=== PATIENT | female | born 1970 | race Caucasian/White ===

== ENCOUNTER 2023-05-29 20:09 | Outpatient (REF) | payer OTHER, SELFPAY ==
[2023-06-01 15:09] LABS: Age Gdln ACOG Testing Note (.); HPV Aptima Negative (Negative); IGP, Aptima HPV, rfx 16/18,45 Note (.)
== END 2023-05-29 20:10 | disposition home or self-care (01) ==
LOC: LAB 20:09
PROVIDERS: Visit Provider Obstetrics & Gynecology
DX: Z01.419 Encounter for gynecological examination (general) (routine) without abnormal findings (principal)
CPT/HCPCS: 87624; G0145

== ENCOUNTER 2023-06-01 08:58 | Outpatient (OUT) | payer OTHER, SELFPAY ==
--- OUTSIDE RECORDS SUMMARY | 2023-06-01 09:11 | XMS_ITS | CCD ---
Author Name Unknown Address [email or web address] [place] [address] Organization [facility] Care Team Providers Care Managed Services Consultant Name Role Phone DO Bill Kumari Primary Care Provider [phone] Jean Osman Attending Provider DO Bill Kumari Primary Care Provider MD Barry Machado Attending Provider QUCO, DR BERNABE Primary Care Unavailable QUOC, DR BERNABE Admitting Unavailable QUOC, DR BERNABE Attending Unavailable QUOC, DR BERNABE Consulting Unavailable QUOC, DR BERNABE Primary Care Unavailable BALL, DR BERNABE Admitting Unavailable BALL, DR BERNABE Attending Unavailable BALL, DR BERNABE Consulting Unavailable BROWN, PEREZ Consulting Unavailable JACQUI, DR PENA Attending Unavailable JACQUI, DR PENA Consulting Unavailable QUOC, DR BERNABE Primary Care Unavailable JACQUI, DR PENA Admitting Unavailable QUOC, DR BERNABE Primary Care Unavailable BALL, DR BERNABE Admitting Unavailable BALL, DR BERNABE Attending Unavailable QUOC, DR BERNABE Consulting Unavailable WEST, DR PEREZ Hdz Consulting Unavailable QUOC, DR BERNABE Primary Care Unavailable QUOC, DR BERNABE Admitting Unavailable QUOC, DR BERNABE Attending Unavailable BALL, DR BERNABE Consulting Unavailable Quoc, Bill Primary Care Unavailable JacquiJean Admitting Unavailable JacquiJean Attending Unavailable Ball, Bill Primary Care Unavailable Jacqui, Jean Admitting Unavailable Jacqui, Jean Attending Unavailable Quoc, Bill Primary Care Unavailable Barry Machado Admitting Unavailable Barry Machado Attending Unavailable Quoc, Bill Primary Care Unavailable Barry Machado Admitting Unavailable Barry Machado Attending Unavailable Quoc, Bill Unavailable Allergies Allergy Classification Reported Allergen(s) Allergy Type Date of Onset Reaction(s) Facility (3 sources) Penicillin Drug Allergy 06-21-19 11 PENICILLIN [facility] Repository (1 source) Penicillins Drug allergy (disorder) 05-10-20 [facility] Repository (7 sources) Penicillin G Drug Allergy Unknown [facility] Other (2 sources) Substance with penicillin structure and antibacterial mechanism of action (substance) Drug allergy 11-26-19 Unknown [facility] Other (2 sources) Bee Sting Drug allergy 11-26-19 Unknown [facility] Other (2 sources) patient allergy list reviewed by nurse or physicia Propensity to adverse reactions 10-05-19 Comment:Done [facility] [employer] Other (2 sources) Allergies Reconciled Propensity to adverse reactions Unknown [facility] Other Medications Current Medications Medication Drug Class(es) Dates Sig (Normalized) Sig (Original) {1 (ascorbic acid 7540 MG / polyethylene glycol 3350 76367 MG / potassium chloride 1200 MG / sodium ascorbate 83688 MG / sodium chloride 3200 MG Powder for Oral Solution) / 1 (polyethylene glycol 3350 [id number] MG / potassium chloride 1000 MG / sodium chloride 2000 MG / sodium sulfate 9000 MG Powder for Oral Solution) } Pack [Plenvu] (7 sources) Osmotic Laxative, Vitamin C Start: 01-27-2022 Plenvu 140 GM dose 1 pouch at 4pm, dose 2 pouch A & B at 11pm Orally twice a day for 1 days BIN:[id number] PCN: [id number] GROUP:[id number] ID:[id number] Jan, Active azithromycin 250 mg oral tablet (10 sources) Macrolide Antimicrobial Start: 06-14-2022 Azithromycin 250 MG as directed Orally daily for 5 days Jan, Active cetirizine hydrochloride 10 mg oral tablet (1 source) Histamine-1 Receptor Antagonist Start: 03-12-2023 take 1 tablet by mouth once daily ZyrTEC Allergy 10 MG 1 tablet Orally Once a day for 30 days Mar, Active doxycycline hyclate 100 mg oral capsule (7 sources) Tetracycline-class Drug Start: 07-17-2022 take 1 capsule by mouth every twelve hours Doxycycline Hyclate 100 MG 1 capsule Orally Twice a day for 14 days Jul, Active [id number] 0.3 ml EPINEPHrine 1 mg/ml auto-injector (7 sources) alpha-Adrenergic Agonist, beta-Adrenergic Agonist, Catecholamine Start: 07-31-2022 EpiPen 2-Lew 0.3 MG/0.3ML as directed Injection Once as needed for allergic reaction for 30 days Jul, Active fluticasone propionate 0.05 mg/actuat metered dose nasal spray (1 source) Corticosteroid Start: 03-12-2023 take 1 spray(s) nasal route once daily Flonase Allergy Relief 50 MCG/ACT 1 spray in each nostril Nasally Once a day for 30 days Mar, Active levoFLOXacin 500 mg oral tablet (7 sources) Quinolone Antimicrobial Start: 07-20-2022 take 1 tablet by mouth every twenty-four hours levoFLOXacin 500 MG 1 tablet Orally Once a day for 10 days Jul, Active Problems Active Problems Problem Classification Problem Date Documented Date Episodic/Chronic Abdominal pain (6 sources) Right upper quadrant pain; Translations: [Right upper quadrant pain] Onset: 01-17-2022 Episodic Acute bronchitis (2 sources) Acute bronchitis; Translations: [Acute bronchitis due to other specified organisms] Episodic Allergic reactions (6 sources) Anaphylactic shock, unspecified, initial encounter; Translations: [Idiopathic urticaria] Onset: 11-06-2014 Episodic Asthma (6 sources) Mild intermittent asthma; Translations: [Mild intermittent asthma, uncomplicated] Onset: 10-04-2017 Chronic Cancer of cervix (4 sources) Atypical squamous cells of undetermined significance on cervical Papanicolaou smear; Translations: [Atypical squamous cells of undetermined significance on cytologic smear of cervix (ASC-US)] Episodic Cardiac dysrhythmias (2 sources) Palpitations; Translations: [Palpitations] Episodic Deficiency and other anemia (2 sources) Anemia; Translations: [Anemia, unspecified] Episodic Genitourinary symptoms and ill-defined conditions (2 sources) Female stress incontinence; Translations: [Female stress incontinence] Onset: 10-04-2017 Chronic Genitourinary symptoms and ill-defined conditions (8 sources) Dysuria; Translations: [Genitourinary symptoms] Onset: 09-30-2021 Episodic Intestinal infection (2 sources) Infectious colitis, enteritis and gastroenteritis; Translations: [Infectious gastroenteritis and colitis, unspecified] Episodic Mycoses (2 sources) Candidiasis; Translations: [Candidiasis, unspecified] Episodic Nonmalignant breast conditions (2 sources) Fibrocystic disease of breast; Translations: [Diffuse cystic mastopathy of unspecified breast] Chronic Nonmalignant breast conditions (12 sources) Cyst of breast; Translations: [Solitary cyst of left breast] Resolved: 07-24-2018 05-22-2018 Episodic Other female genital disorders (2 sources) Disorder of female genital system; Translations: [Personal history of other diseases of the female genital tract] Episodic Other injuries and conditions due to external causes (1 source) Anaphylactic shock, unspecified, sequela Episodic Other lower respiratory disease (4 sources) Dyspnea; Translations: [Shortness of breath] Resolved: 02-05-2022 Episodic Other nervous system disorders (2 sources) Neuralgic amyotrophy; 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 Other non-traumatic joint disorders (2 sources) Shoulder joint pain; Translations: [Pain in right shoulder] Episodic Other screening for suspected conditions (not mental disorders or infectious disease) (6 sources) Encounter for screening for malignant neoplasm of cervix; Translations: [Abnormal findings on diagnostic imaging of breast] Onset: 12-26-2021 Episodic Other upper respiratory disease (2 sources) Seasonal allergic rhinitis; Translations: [Other seasonal allergic rhinitis] Chronic Other upper respiratory disease (1 source) Allergic rhinitis due to pollen; Translations: [Allergic rhinitis due to pollen] Chronic Other upper respiratory disease (1 source) Allergic rhinitis due to pollen Chronic Other upper respiratory infections (12 sources) Acute maxillary sinusitis, unspecified; Translations: [Acute upper respiratory infection] Episodic Residual codes; unclassified (2 sources) Preventive procedure; Translations: [Encounter for other specified prophylactic measures] Episodic Sprains and strains (4 sources) Strain of neck muscle; Translations: [Strain of muscle, fascia and tendon at neck level, subsequent encounter] Episodic Unclassified (1 source) Encounter for screening mammogram for malignant neoplasm of breast; Translations: [Encounter for screening mammogram for malignant neoplasm of breast] Onset: 07-07-2022 Unclassified (1 source) Encounter for screening for malignant neoplasm of colon; Translations: [Encounter for screening for malignant neoplasm of colon] Onset: 03-06-2022 Unclassified (1 source) Encounter for preprocedural laboratory examination; Translations: [Encounter for preprocedural laboratory examination] Onset: 03-02-2022 Unclassified (1 source) R92.8 - Other abnormal and inconclusive findings on diagnostic imaging of breast; Translations: [R92.8 - Other abnormal and inconclusive findings on diagnostic imaging of breast] Onset: 11-22-2021 Unclassified (2 sources) 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); Translations: [Post COVID-19 condition, unspecified] Viral infection (4 sources) Infectious mononucleosis; Translations: [Infectious mononucleosis, unspecified without complication] Episodic Past or Other Problems Problem Classification Problem Date Documented Date Episodic/Chronic Bacterial infection; unspecified site (2 sources) Bacterial infectious disease; Translations: [Bacterial infection, unspecified, in conditions classified elsewhere and of unspecified site] Onset: 07-07-2016 Episodic Immunizations and screening for infectious disease (1 source) Encounter for screening for human papillomavirus (HPV); Translations: [ENC SCREENING HUMAN PAPILLOMAVIRUS] Onset: 12-27-2021 Episodic Lymphadenitis (2 sources) Localized enlarged lymph nodes; Translations: [Localized enlarged lymph nodes] Onset: 07-07-2016 Episodic Malaise and fatigue (2 sources) Fatigue; Translations: [Other fatigue] Resolved: 02-05-2022 Episodic Other lower respiratory disease (2 sources) Cough; Translations: [Cough] Onset: 10-04-2017 Episodic Other nutritional; endocrine; and metabolic disorders (2 sources) Overweight; Translations: [Overweight] Onset: 07-29-2018 Episodic Other nutritional; endocrine; and metabolic disorders (2 sources) Abnormal weight gain; Translations: [Abnormal weight gain] Resolved: 02-05-2022 Episodic Other nutritional; endocrine; and metabolic disorders (2 sources) Body mass index 25-29 - overweight; Translations: [Body mass index 26.0-26.9, adult] Onset: 07-29-2018 Episodic Other skin disorders (2 sources) Alopecia; Translations: [Unspecified alopecia] Onset: 05-05-2015 Episodic Unclassified (2 sources) Exposure to acute respiratory syndrome coronavirus 2; Translations: [Contact with and (suspected) exposure to COVID-19] Unclassified (2 sources) Unspecified lump in the right breast, overlapping quadrants; Translations: [Unspecified lump in the right breast, overlapping quadrants] Urinary tract infections (2 sources) Urinary tract infectious disease; Translations: [Urinary tract infection, site not specified] Onset: 05-09-2016 Episodic Viral infection (2 sources) Disease caused by 2019-nCoV; Translations: [COVID-19] Results Test Name Value Interpretation Reference Range Facility MM screening mammo BI w/CADo n 07-07-2022 MM screening mammo BI w/CAD [facility] [place] [address] Mammography Report Signed Patient: Lucian Vallecillo MR#: [id number] [birth year] : 1970 Acct:[id number] Age/Sex: 51 / F ADM Date: 07/07/22 Loc: [place] Room: Type: [facility] Attending Dr: Jean Osman Copies to: DO Jean Hercules Ordering Provider: Jean Osman Date of Service: 07/07/22 MM/MM screening mammo BI w/CAD: SCREENING Bilateral Screening Full Field digital mammogram with 3-D imaging. Full field digital CC and MLO imaging performed. CAD utilized. COMPARISON: 05/12/2021 HISTORY:Screening FINDINGS: The breast parenchyma is extremely dense. No developing architectural distortion, developing focal breast asymmetry or developing malignant calcifications identified. Scattered benign calcifications identified. Right biopsy marking clip present. MM/MM screening mammo BI w/CAD IMPRESSION:No mammographic evidence of malignancy. Routine follow-up recommended in one year. RESULT CODE: 2 Benign Findings(s) DENSITY CODE: 4 (>75% glandular) FOLLOW UP: 1YR THE FALSE-NEGATIVE RATE OF MAMMOGRAPHY IS APPROXIMATELY 10%. IMAGING OF A PALPABLE ABNORMALITY MUST BE BASED ON CLINICAL GROUNDS. PATIENT WAS ENTERED INTO A REMINDER SYSTEM WITH A TARGET DUE DATE FOR THE NEXT MAMMOGRAM. Impression dictated by: Dion Grant M.D.07/07/2022 1:12 PM Dictation Location: [facility] Transcribed By: [facility] 07/07/221311 Dictated By: Dion Grant DO 07/07/221310 Signed By: 07/07/22 1312 Normal [facility] CBC AUTO DIFFon 04-01-2022 BASO # 0.1 103/ul Normal 0.0-0.1 [facility] Comment on above: Performed By: #### C BC #### [facility] [address] [address] Dr. Naren Leon Basophils/100 WBC (Bld) 0.7 % Normal 0.2-2.0 [facility] Comment on above: Performed By: #### C BC #### [facility] [address] [address] Dr. Naren Leon EO # 0.3 103/ul Normal 0.0-0.7 [facility] Comment on above: Performed By: #### C BC #### [facility] [address] [address] Dr. Naren Leon Eosinophils/100 WBC (Bld) 3.7 % Normal 0.9-7.0 [facility] Comment on above: Performed By: #### C BC #### [facility] [address] [place] [address] Dr. Naren Leon Erythrocyte distribution width (RBC) [Ratio] 13.6 % Normal 11.0-15.0 [facility] Comment on above: Performed By: #### C BC #### [facility] [address] [address] Dr. Naren Leon Hematocrit (Bld) [Volume fraction] 43.1 % Normal 36.0-48.0 [facility] Comment on above: Performed By: #### C BC #### [facility] [address] [place] [address] Dr. Naren Leon Hemoglobin (Bld) [Mass/Vol] 14.5 g/dL Normal 12.0-16.0 [facility] Comment on above: Performed By: #### C BC #### [facility] [address] [place] [address] Dr. Naren Leon IG # 0.03 10e3/ul Normal 0.00-0.03 [facility] Comment on above: Performed By: #### C BC #### [facility] [address] [place] [address] Dr. Naren Leon IG % 0.3 % Normal 0.0-0.5 [facility] Comment on above: Performed By: #### C BC #### [facility] [address] [address] Dr. Naren Leon LYMPH # 2.8 103/ul Normal 1.2-3.8 [facility] Comment on above: Performed By: #### C BC #### [facility] [address] [place] [address] Dr. Naren Leon Lymphocytes/100 WBC (Bld) 30.3 % Normal 20.5-60.0 [facility] Comment on above: Performed By: #### C BC #### [facility] [address] [place] [address] Dr. Naren Leon MANUAL DIFF REQ NO Normal [facility] Comment on above: Performed By: #### C BC #### [facility] [address] [place] [address] Dr. Naren Leon MCH (RBC) [Entitic mass] 28.5 pg Normal 26.7-34.0 [facility] Comment on above: Performed By: #### C BC #### [facility] [address] [place] [address] Dr. Naren Leon MCHC (RBC) [Mass/Vol] 33.6 g/dL Normal 29.9-35.2 [facility] Comment on above: Performed By: #### C BC #### [facility] [address] [place] [address] Dr. Naren Leon MCV (RBC) [Entitic vol] 84.8 fL Normal 81.0-99.0 [facility] Comment on above: Performed By: #### C BC #### [facility] [address] [address] Dr. Naren Leon MONO # 0.7 103/ul Normal 0.3-0.8 [facility] Comment on above: Performed By: #### C BC #### [facility] [address] [place] [address] Dr. Naren Leon Monocytes/100 WBC (Bld) 7.2 % Normal 1.7-12.0 [facility] Comment on above: Performed By: #### C BC #### [facility] [address] [address] Dr. Naren Leon NEUT # 5.3 103/ul Normal 1.4-6.5 [facility] Comment on above: Performed By: #### C BC #### [facility] [address] [place] [address] Dr. Naren Leon Neutrophils/100 WBC (Bld) 57.8 % Normal 43.0-75.0 [facility] Comment on above: Performed By: #### C BC #### [facility] [address] [address] Dr. Naren Leon Platelet mean volume (Bld) [Entitic vol] 10.2 fL Normal 9.5-13.5 [facility] Comment on above: Performed By: #### C BC #### [facility] [address] [address] Dr. Naren Leon PLT 295 103/ul Normal 150-450 [facility] Comment on above: Performed By: #### C BC #### [facility] [address] [address] Dr. Naren Leon RBC 5.08 106/ul Normal 4.20-5.40 [facility] Comment on above: Performed By: #### C BC #### [facility] [address] [place] [address] Dr. Naren Leon WBC 9.1 103/ul Normal 4.0-11.0 [facility] Comment on above: Performed By: #### C BC #### [facility] [address] [address] Dr. Naren Leon LIPID PROFILEon 04-01-2022 CHOL-HDL RATIO NORM SEE BELOW Normal [facility] Comment on above: Result Comment: 3.3 - 4.4 LOW RISK 4.4 - 7.1 AVERAGE RISK 7.1 - 11.0 MODERATE RISK >11.0 HIGH RISK Performed By: #### T SH, LIPID, CMP #### [facility] [address] [address] Dr. Naren Leon Cholesterol [Mass/Vol] 229 mg/dL Critically high <=200 [facility] Comment on above: Performed By: #### T SH, LIPID, CMP #### [facility] [address] [address] [address] Naren Leon Cholesterol in HDL [Mass/Vol] 65 mg/dL Critically high 40-60 [facility] Comment on above: Performed By: #### T SH, LIPID, CMP #### [facility] [address] [address] [address] Naren Leon Cholesterol in LDL [Mass/Vol] 147.8 mg/dL Normal [facility] Comment on above: Performed By: #### T SH, LIPID, CMP #### [facility] [address] [address] [address] Naren Leon Cholesterol.total/Chol esterol in HDL [Mass ratio] 3.5 {ratio} Normal [facility] Comment on above: Performed By: #### T SH, LIPID, CMP #### [facility] [address] [address] [address] Naren Leon HDL NORMAL > or = 60 mg/dl - LOW CARDIOVASCULAR RISK <40 mg/dl - HIGH CARDIOVASCULAR RISK Normal [facility] Comment on above: Performed By: #### T SH, LIPID, CMP #### [facility] [address] [address] Dr. Naren Leon LDL CALC NORMAL SEE BELOW Normal [facility] Comment on above: Result Comment: <100 mg/dl OPTIMAL 100 - 129 mg/dl NEAR OR ABOVE OPTIMAL 130 - 159 mg/dl BORDERLINE HIGH 160 - 189 mg/dl HIGH >190 mg/dl VERY HIGH Performed By: #### T SH, LIPID, CMP #### [facility] [address] [place] [address] Dr. Naren Leon Triglyceride [Mass/Vol] 81 mg/dL Normal <=150 [facility] Comment on above: Performed By: #### T SH, LIPID, CMP #### [facility] [address] [place] [address] Dr. Naren Leon VLDL CALC 16.2 mg/dL Normal [facility] Comment on above: Performed By: #### T SH, LIPID, CMP #### [facility] [address] [place], [place] [id number] Dr. Naren Leon PROF 14(COMP METB)on 022 Albumin [Mass/Vol] 3.9 g/dL Normal 3.4-5.0 [facility] Comment on above: Performed By: #### T SH, LIPID, CMP #### [facility] [address] [place] [address] Dr. Naren Leon Albumin/Globulin [Mass ratio] 1.1 {ratio} Normal [facility] Comment on above: Performed By: #### T SH, LIPID, CMP #### [facility] [address] [address] [address] Naren Leon ALP [Catalytic activity/Vol] 53 U/L Normal 46-116 [facility] Comment on above: Performed By: #### T SH, LIPID, CMP #### [facility] [address] [place] [address] Dr. Naren Leon ALT [Catalytic activity/Vol] 24 U/L Normal 14-59 [facility] Comment on above: Performed By: #### T SH, LIPID, CMP #### [facility] [address] [address] [address] Naren Leon Anion gap [Moles/Vol] 11.1 mmol/L Normal [facility] Comment on above: Performed By: #### T SH, LIPID, CMP #### [facility] [address] [place] [address] Dr. Naren Leon AST [Catalytic activity/Vol] 16 U/L Normal 15-37 [facility] Comment on above: Performed By: #### T SH, LIPID, CMP #### [facility] [address] [address] [address] Naren Leon Bilirubin [Mass/Vol] 0.5 mg/dL Normal 0.2-1.0 [facility] Comment on above: Performed By: #### T SH, LIPID, CMP #### [facility] [address] [place] [address] Dr. Naren Leon Calcium [Mass/Vol] 8.7 mg/dL Normal 8.5-10.1 [facility] Comment on above: Performed By: #### T SH, LIPID, CMP #### [facility] [address] [address] [address] Naren Leon Chloride [Moles/Vol] 103 mmol/L Normal 98-107 [facility] Comment on above: Performed By: #### T SH, LIPID, CMP #### [facility] [address] [address] [address] Naren Leon CO2 [Moles/Vol] 27.8 mmol/L Normal 21.0-32.0 [facility] Comment on above: Performed By: #### T SH, LIPID, CMP #### [facility] [address] [address] [address] Naren Leon Creatinine [Mass/Vol] 0.87 mg/dL Normal 0.55-1.02 [facility] Comment on above: Performed By: #### T SH, LIPID, CMP #### [facility] [address] [address] [address] Naren Leon EGFR-AF GRENADIAN >60 Normal >=60 [facility] Comment on above: Performed By: #### T SH, LIPID, CMP #### [facility] [address] [address] [address] Naren Leon EGFR-NON AF GRENADIAN >60 Normal >=60 [facility] Comment on above: Performed By: #### T SH, LIPID, CMP #### [facility] [address] [address] [address] Naren Leon Globulin (S) [Mass/Vol] 3.6 g/dL Normal [facility] Comment on above: Performed By: #### T SH, LIPID, CMP #### [facility] [address] [address] [address] Naren Leon Glucose [Mass/Vol] 90 mg/dL Normal 74-106 [facility] Comment on above: Performed By: #### T SH, LIPID, CMP #### [facility] [address] [address] [address] Naren Leon Potassium [Moles/Vol] 3.9 mmol/L Normal 3.5-5.1 [facility] Comment on above: Performed By: #### T SH, LIPID, CMP #### [facility] [address] [address] [address] Naren Leon Protein [Mass/Vol] 7.5 g/dL Normal 6.4-8.2 [facility] Comment on above: Performed By: #### T SH, LIPID, CMP #### [facility] [address] [address] [address] Naren Leon Sodium [Moles/Vol] 138 mmol/L Normal 136-145 [facility] Comment on above: Performed By: #### T SH, LIPID, CMP #### [facility] Laboratory [address] [address] [address] Naren Leon Urea nitrogen [Mass/Vol] 15.0 mg/dL Normal 7.0-18.0 [facility] Comment on above: Performed By: #### T SH, LIPID, CMP #### [facility] [address] [place] [address] Dr. Naren Leon Urea nitrogen/Creatinine [Mass ratio] 17.2 mg/mg Normal [facility] Comment on above: Performed By: #### T SH, LIPID, CMP #### [facility] [address] [place] [address] Dr. Naren Leon TSHon 04-01-2022 TSH 2.283 uIU/mL Normal 0.358-3.740 [facility] Comment on above: Performed By: #### T SH, LIPID, CMP #### [facility] [address] [address] Dr. Naren Leon HCG ( test) IA.rapi d Ql (U)Ordered By: Barry Machado on 03-06-2022 HCG ( test) Ql (U) Negative [facility] HCG,Urineon 03-06-2022 Beta HCG ( test) Ql (U) Negative Normal [facility] Comment on above: Result Comment: PERF ORMED BY: [place] [address] [place] [address] PATHOLOGIST SOCK FOLDER JIANLAN SUN M.D. Performed By: #### U HCG #### [facility] [address] COVID-19 Antigenon 2 COVID-19 Antigen Healthcare Worker?: N Reference Range: Negative Negative results, from patients with symptom onset beyond five days, should be treated as presumptive and confirmation with a molecular assay, if necessary, for patient management, may be performed. Negative results do not rule out COVID-19 and should not be used as the sole basis for treatment or patient management decisions, including infection control decisions. Negative results should be considered in the context of a patient's recent exposures, history and the presence of clinical signs and symptoms consistent with COVID-19. The Allen SARS Antigen BRYAN does not differentiate between SARS-CoV and SARS-CoV-2. This test was developed and its performance characteristic determined by [employer] and validated at [facility]. This test has not been FDA cleared or approved. This test has been authorized by FDA under an Emergency Use Authorization (EUA). This test has been validated in accordance with the FDA's Guidance Document (Policy for Diagnostics Testing in Laboratories Certified to Perform High Complexity Testing under CLIA prior to Emergency Use Authorization for Coronavirus Disease-2019 during the Public Health Emergency) issued on September 11, 2019. This test is only authorized for the duration of time the declaration that circumstances exist justifying the authorization of the emergency use of in vitro diagnostic tests for detection of SARS-CoV-2 virus and/or diagnosis of COVID-19 infection under section 564(b)(1) of the Act, 21 U.S.C. 360bbb-3(b)(1), unless the authorization is terminated or revoked sooner. SARS-CoV+SARS-CoV-2 (COVID-19) Ag [Presence] in Respiratory specimen by Rapid immunoassay Negative for SARS Antigen by BRYAN PERFORMED BY: [place] [address] PATHOLOGIST SOCK FOLDER JERED MORRISON M.D. [facility] Comment on above: Performed By: #### C OVID-19 ALLEN, SOFIANEG #### [facility] [address] [place] [address] COVID-19 SOFIAOrdered By: Susana Machado on 03-02-2022 SARS-CoV+SARS-CoV-2 (COVID-19) Ag IA.rapid Ql (Resp) Negative Negative [facility] Comment on above: This is a duplicate Allen SARS Antigen (BRYAN) result to be used for statistical tracking purpose only. No Panel InformationOrdered By: Barry Machado on 03-02-2022 SARS Antigen (LFIA) [facility] Allen Ag Negativeon 03-02-20 Allen Ag Negative Negative Normal Negative [facility] Comment on above: Result Comment: This is a duplicate Allen SARS Antigen (BRYAN) result to be used for statistical tracking purpose only. PERFORMED BY: [place] [address] PATHOLOGIST SOCK FOLDER JERED MORRISON M.D. Performed By: #### C OVID-19 ALLEN, SOFIANEG #### [address] Abstracton 02-11-2022 Abstract [id number] AvelLucian 1970 F Date Provider Department Center 02/11/2022 SHAN [facility] Family History Problem Relation Age of Onset Other Mother Other Father Diabetes Paternal Grandmother Family Status - Relation Status Age at Mother Father Paternal Grandmother Normal [facility] HEPATOBILIARY SCAN W EFon 01-17-2022 NM HEPATOBILIARY SCAN W EF EXAMINATION: NM HEPATOBILIARY SCAN W EF HISTORY: Right upper quadrant pain COMPARISON: No relevant comparison available. TECHNIQUE: Radionuclide hepatobiliary imaging was performed after intravenous injection of 5.1 mCi Tc-99m mebrofenin with sequential acquisitions every 1 minute for one hour. Hepatobiliary imaging with gallbladder ejection fraction analysis was then performed with sequential imaging every 1 minute for 60 minutes simultaneously following 8 ounces of ensure by mouth. FINDINGS: LIVER: Normal, prompt and uniform radiotracer uptake and clearing. BILIARY DUCTS: Normal radioisotopic biliary excretion. GALLBLADDER: Normal with no evidence of cystic duct obstruction. INTESTINE: Normal with no evidence of common biliary ductal obstruction. EJECTION FRACTION: 57 % within 60 minutes. (Normal EF > 38%). OTHER: Negative. IMPRESSION: Normal hepatobiliary scan and ejection fraction Electronically authenticated by: PEREZ HILL Date: 2022-01-17 18:39 Normal [facility] PAP ACOG PANEL 2: 30 to 65on 12-30-2021 . . Normal [facility] Comment on above: Result Comment: Perf ormed at: WB Performed By: #### [id number] #### [facility] [address] [address] Dr. Naren Leon Age Gdln ACOG Testing 30-65 Normal [facility] Comment on above: Performed By: #### [id number] #### [facility] [address] [address] [address] Naren Leon DIAGNOSIS: Comment Abnormal [facility] Comment on above: Result Comment: EPIT HELIAL CELL ABNORMALITY. ATYPICAL SQUAMOUS CELLS OF UNDETERMINED SIGNIFICANCE (ASC-US). Performed at: WB Performed By: #### 4 [id number] #### [facility] [address] [address] Dr. Naren Leon Electronically signed by: Comment Normal [facility] Comment on above: Result Comment: Kaya Mtz MD, Pathologist Performed at: WB Performed By: #### 4 [id number] #### [facility] [address] [place] [address] Dr. Naren Leon HPV Aptima Negative Normal Negative [facility] Comment on above: Result Comment: This nucleic acid amplification test detects fourteen high-risk HPV types (16,18,31,33,35,39,45,51,52,56,58,59,66,68) without differentiation. Performed at: =G Performed By: #### [id number] #### [facility] [address] [address] Dr. Naren Leon Methodology: Comment Normal [facility] Comment on above: Result Comment: This liquid based ThinPrep(R) pap test was screened with the use of an image guided system. Performed at: WB Performed By: #### 4 [id number] #### [facility] [address] [address] Dr. Naren Leon Note: Comment Normal [facility] Comment on above: Result Comment: The Pap smear is a screening test designed to aid in the detection of premalignant and malignant conditions of the uterine cervix. It is not a diagnostic procedure and should not be used as the sole means of detecting cervical cancer. Both false-positive and false-negative reports do occur. . Performed at: WB Performed By: #### 4 [id number] #### [facility] [address] [address] [address] Naren Leon Pathologist Provided ICD10 Comment Normal [facility] Comment on above: Result Comment: R87. [id number] Performed at: WB Performed By: #### 4 [id number] #### [facility] [id number] Naren Leon Performed by: Comment Normal [facility] Comment on above: Result Comment: [place] Sellers, Fixed Assets Accountant (ASCP) Performed at: WB Performed By: #### 4 [id number] #### [facility] [address] [address] [address] Naren Leon Recommendation: Comment Abnormal [facility] Comment on above: Result Comment: Sugg est follow up as clinically appropriate. Performed at: WB Performed By: #### 4 [id number] #### [facility] [id number] Naren Leon Specimen adequacy: Comment Normal [facility] Comment on above: Result Comment: Sati sfactory for evaluation. Endocervical and/or squamous metaplastic cells (endocervical component) are present. Performed at: WB Performed By: #### 4 [id number] #### [facility] [address] [place], [place] [id number] Dr. Naren Leon US SINGLE QUAD RT UPPERon US SINGLE QUAD RT UPPER EXAM: Ultrasound of the right upper quadrant HISTORY: Right upper quadrant pain COMPARISON: None. TECHNIQUE: Grayscale and color imaging was performed FINDINGS: Pancreas appears normal. The liver is normal in size. No masses or biliary dilatation is noted. Color-flow is noted in the portal and hepatic veins. The gallbladder appears normal with no stones or sludge identified. No gallbladder wall thickening is noted. Common bile duct measures 5 mm. Right kidney measures 11.5 x 4.4 x 5.1 cm. No solid renal cortical masses or hydronephrosis is noted. There is a 1.5 cm cyst involving the midpole of the right kidney. No fluid is noted in the right upper quadrant. Impression: 1. 1.5 cm cyst involving the midpole of the right kidney. 2. The right upper quadrant is otherwise unremarkable. Electronically authenticated by: PEREZ ARAUJO Date: 2021-12-29 08:29 Normal [facility] US breast RT limitedon 11-22 US breast RT limited [facility] Main [place] [address] [place] [address] Ultrasound Report Signed Patient: Lucian Vallecillo MR#: [id number] [birth year] : 1970 Acct:[id number] Age/Sex: 51 / F ADM Date: 11/22/21 Loc: [facility] Room: Type: [facility] Attending Dr: Jean Osman Ordering Provider: Jean Osman Date of Service: 11/22/21 US/US breast RT limited: ABN [facility] Copies to: Jean Osman CLINICAL DATA: History of bloody nipple discharge from the right breast for one week. None presently. Follow-up nodule right breast. LIMITED right BREAST ULTRASOUND COMPARISON:Mammogram s dating back to 2018. Right breast ultrasound 05/12/2021, a 08/29/2019 and 06/12/2019 FINDINGS: At the 9:00 position of the right breast approximately 6 cm from the nipple, the previous identified well-circumscribed hypoechoic mass is once again demonstrated measuring 8 x 6 x 4 mm, grossly unchanged in size and configuration dating back to 06/12/2019. No additional suspicious masses. US/US breast RT limited IMPRESSION: STABLE HYPOECHOIC MASS 9:00 POSITION OF THE RIGHT BREAST DATING BACK TO 06/12/2019. GIVEN THE OVER 2 YEARS OF STABILITY, A BENIGN PROCESS IS FAVORED. RETURN TO SCREENING MAMMOGRAPHY IS RECOMMENDED. IF THE BLOODY NIPPLE DISCHARGE RETURNS, BREAST MRI EVALUATION SHOULD BE ENTERTAINED. RESULT CODE: 2 Benign Findings(s) Management of a palpable abnormality must be based on clinical grounds. Patient was entered into a reminder system with a target due date for the next mammogram. Impression dictated by: Jamil Tong Jr., D.O.11/22/2021 11:24 AM Dictation Location: [facility] Tech: Thania Espinosa Transcribed By: PWS 11/22/21 112 Dictated By: Jamil Tong Jr, DO 11/22/211119 Signed By: 11/22/21 112 Normal [facility] CULTURE URINEon 09-30-2021 CULTURE URINE Culture Observations: LIGHT GROWTH OF MIXED GENITAL JEFF. NO POTENTIAL PATHOGENS SEEN. Normal [facility] Comment on above: Performed By: #### U RCX #### [facility] [address] [address] Dr. Naren Leon UA RANDOM W/MICROSCOPICon BACTERIA TRACE Abnormal NONE SEEN [facility] Comment on above: Performed By: #### U AMIC #### [facility] [address] [place] [address] Dr. Naren Leon Bilirubin Ql (U) Negative Normal NEGATIVE [facility] Comment on above: Performed By: #### U AMIC #### [facility] [address] [address] Dr. Naren Leon CAST NONE SEEN Normal NONE SEEN [facility] Comment on above: Performed By: #### U AMIC #### [facility] [address] [place] [address] Dr. Naren Leon Clarity (U) CLEAR Normal CLEAR [facility] Comment on above: Performed By: #### U AMIC #### [facility] [address] [address] Dr. Naren Leon Color (U) LT. YELLOW Normal YELLOW [facility] Comment on above: Performed By: #### U AMIC #### [facility] [address] [address] Dr. Naren Leon Crystals LM Nom (Urine sed) NONE SEEN Normal NONE SEEN [facility] Comment on above: Performed By: #### U AMIC #### [facility] [address] [place] [address] Dr. Naren Leon Epithelial cells LM Ql (Urine sed) MODERATE Abnormal NONE SEEN /RARE [facility] Comment on above: Performed By: #### U AMIC #### [facility] [address] [place] [address] Dr. Naren Leon Glucose Ql (U) Negative Normal NEGATIVE [facility] Comment on above: Performed By: #### U AMIC #### [facility] [address] [address] [address] Naren Leon Hemoglobin Ql (U) Negative Normal NEGATIVE [facility] Comment on above: Performed By: #### U AMIC #### [facility] [address] [address] [address] Naren Leon Ketones Ql (U) Negative Normal NEGATIVE [facility] Comment on above: Performed By: #### U AMIC #### [facility] [address] [address] [address] Naren Leon LEUKOCYTES TRACE Abnormal NEGATIVE [facility] Comment on above: Performed By: #### U AMIC #### [facility] [address] [address] [address] Naren Leon MUCOUS TRACE Abnormal NONE SEEN [facility] Comment on above: Performed By: #### U AMIC #### [facility] [address] [address] [address] Naren Leon Nitrite Ql (U) Negative Normal NEGATIVE [facility] Comment on above: Performed By: #### U AMIC #### [facility] [address] [address] [address] Naren Leon pH (U) 6.0 [pH] Normal 5-9 [facility] Comment on above: Performed By: #### U AMIC #### [facility] [address] [address] [address] Naren Leon RBC 0-2 Normal 0-2 [facility] Comment on above: Performed By: #### U AMIC #### [facility] [address] [address] [address] Naren Leon SPEC GRAVITY <=1.005 Abnormal 1.005-<=1.025 [facility] Comment on above: Performed By: #### U AMIC #### [facility] [address] [address] [address] Naren Leon UA PROTEIN Negative Normal NEGATIVE/ TRACE [facility] Comment on above: Performed By: #### U AMIC #### [facility] [address] [address] [address] Naren Leon Urobilinogen Qn (U) 0.2 {Daiana'U}/dL Normal 0.2 - 1. 0 [facility] Comment on above: Performed By: #### U AMIC #### [facility] [address] [address] [address] Naren Leon WBC 0-2 Abnormal NONE SEEN [facility] Comment on above: Performed By: #### U AMIC #### [facility] [address] [address] [address] Naren Leon Coding Summary.on 12-17-2019 Coding Summary. CODING DATE: 12/17/2019 [facility] STATUS: Home (Routine DC) PAYOR: [facility] [place] ADMIT DX: REASON FOR VISIT DX: Z11.59 Encounter for screening for other viral diseases FINAL DX: PRINCIPAL: Z01.84 Encounter for antibody response examination SECONDARY: PYMT PROC APC STAT DESCRIPTION DOCTOR NAME DATE NOTE: The code number assigned matches the documented diagnosis and / or procedure in the patient's chart. However, the narrative phrase printed from the coding software may appear abbreviated, or result in slightly different terminology. Coded By: Shan Gilmore Date Saved: 12/17/2019 06:50 am Normal [facility] Physician Orderon 12-04-2019 Physician Order [id number] 6#1.00CD:127 Normal [facility] Vital Signs Date Time Vital Sign Value Performing Clinician Faci lity 03-06-2022 09:28-0400 Diastolic blood pressure 73 mm[Hg] DO [employer] Work Phone: [facility] 03-06-2022 09:28-0400 Heart rate 62 /min DO [employer] Work Phone: [facility] 03-06-2022 09:28-0400 Respiratory rate 16 /min DO [employer] Work Phone: [facility] 03-06-2022 09:28-0400 SaO2% (BldA) [Mass fraction] 100 % DO Bill Ball Work Phone: [facility] 03-06-2022 09:28-0400 Systolic blood pressure 115 mm[Hg] DO Bill Ball Work Phone: [facility] 03-06-2022 08:03-0400 Body height 160.02 cm DO Bill Ball Work Phone: [facility] 03-06-2022 08:03-0400 Body temperature 98.7 [degF] DO Bill Ball Work Phone: [facility] 03-06-2022 08:03-040 Body weight 65.77 kg DO Bill Ball Work Phone: [facility] Encounters Encounter Date Encounter Type Care Provider Facility Start: 03-12-2023 End: 03-12-2023 ambulatory Bill Ball Other [employer] Other Start: 03-12-2023 Office outpatient vi sit 15 minutes Bill Ball [facility] Start: 01-24-2023 End: 01-24-2023 ambulatory Bill Ball Other [employer] Other Start: 01-24-2023 Office outpatient vi sit 15 minutes Bill Ball [facility] Start: 07-31-2022 End: 07-31-2022 ambulatory Bill Ball Other [employer] Other Start: 07-31-2022 Telephone encounter Bill Ball [facility] Start: 07-20-2022 End: 07-20-2022 ambulatory Bill Ball Other [employer] Other Start: 07-20-2022 Telephone encounter Bill Ball [facility] Start: 07-17-2022 End: 07-17-2022 ambulatory Bill Ball Other [employer] Other Start: 07-17-2022 Office outpatient vi sit 15 minutes Bill Ball [facility] Start: 07-07-2022 End: 07-07-2022 ambulatory Bill Kumari Facility:[facility] Start: 06-14-2022 ([facility]) [facility] Scheduled Bill Kumari [facility] Start: 06-14-2022 End: 06-14-2022 ambulatory Bill Kumari Other [employer] Other Start: 06-14-2022 Telephone encounter Bill Kumari [facility] Start: 05-15-2022 Adult health examination Keaton Kumari Other [employer] Other Start: 05-15-2022 Gynecological examin ation normal Bill Kumari Other [employer] Other Start: 04-05-2022 Encounter for genera l adult medical examination without abnormal findings DR BILL KUMARI [facility] Start: 04-01-2022 End: 04-02-[address] BILL KUMARI Facility:[facility] Start: 04-01-2022 End: 04-02-2022 Encounter for general adult medical examination without abnormal findings DR BLIL KUMARI Facility:[facility] Start: 03-06-2022 End: 03-06-2022 ambulatory Bill Kumari Facility:[facility] Start: 03-06-2022 End: 03-06-2022 Admission to same day surgery center DO Bill Kumari Work Phone: [facility] Start: 03-02-2022 End: 03-02-2022 ambulatory Bill Kumari Facility:[facility] Start: 03-02-2022 End: 03-02-2022 Patient encounter procedure DO Bill Kumari Work Phone: [facility] Start: 01-17-2022 End: 01-18-[address] BILL KUMARI Facility:[facility] Start: 12-29-2021 End: 12-30-[address] BILL KUMARI Facility:[facility] Start: 12-26-2021 End: 12-26-[address] JEAN OSMAN Facility:[facility] Start: 11-22-2021 End: 11-22-2021 ambulatory Bill Kumari Facility:[facility] Start: 11-22-2021 End: 11-22-2021 Patient encounter procedure DO Bill Kumari Work Phone: [facility] Start: 09-30-2021 End: 10-01-[address] BILL KUMARI Facility: Start: 11-14-2020 History of abnormal cervical Papanicolaou smear Bill Kumari Other [employer] Other Procedures Date Procedure Procedure Detail Performing Clinician Start: 03-06-2022 Screening colonoscopy D O Bill Kumari Work Phone: Start: 11-22-2021 Ultrasonography of r ight breast DO Bill Kumari Work Phone: Start: 07-29-2018 General examination of patient Bill Kumari Other Start: 12-07-2010 End: 05-23-2016 Insertion of intrauterine contraceptive device Bill Kumari Other Mammography Bill Kumari Other SARS Antigen (LFIA) DO Keaton Kumari Work Phone: Screening for malign ant neoplasm of breast Bill Kumari Other Plan of Treatment Date Care Activity Detail Author Start: 03-06-2022 [facility] Work Phone: Immunizations Immunization Date Immunization Notes Care Provider Fa jaida 09-30-2020 COVID-19 Vaccine Pfi zer - Documentation Purposes Only Bill Kumari Other [employer] Other 09-09-2020 COVID-19 Vaccine Pfi zer - Documentation Purposes Only Bill Kumari Other [employer] Other Payers Date Payer Category Payer Self-pay [id number] 1970 Unknown [id number] 2.16.84 [id number] 1970 Unknown [id number] 2.16.84 [id number] 1970 Unknown [id number] 2.16.84 [id number] 1970 Unknown [id number] 2.16.84 [id number] 1970 Unknown [id number] 2.16.84 [id number] 1958 Unknown [id number] Unknown [id number] 2.16.8 [id number] Unknown [id number] 2.16.8 [id number] Unknown [id number] 2.16.8 [id number] Unknown [id number] 2.16.8 [id number] Social History Date Type Detail Facility Tobacco smoking status NHIS Unknown if ever smoked [facility] Work Phone: Start: 1970 Sex Assigned At Female F [facility] Start: 03-06-2022 Tobacco smoking status NHIS Never smoked tobacco (finding) [facility] Sex Assigned At Sex Assigned At [facility] [employer] Other Goals Date Patient Goal Desired Activity /State Clinical Notes 03-06-2022 to 03-12-2023 Note Date & Type Note Facility 03-12-2023 Evaluation note Encounter Date Diagnosis Assessment Notes Mar, Acute recurrent maxillary sinusitis (ICD-10 - J01.01) Instructed to use Robitussin or Mucinex for cough, saline or Flonase NS for congestion, Tylenol for pain and fever. Mar, Seasonal allergic rhinitis due to pollen (ICD-10 - J30.1) Continue treatment until acosta [employer] Other 08-16-2023 Evaluation note* Encounter Date Diagnosis Assessment Notes Treatment Notes Treatment Clinical Notes Jan, Acute non-recurrent maxillary sinusitis (ICD-10 - J01.00) Instructed to use Robitussin or Mucinex for cough, saline or Flonase NS for congestion, Tylenol for pain and fever. [employer] Other 02-20-2023 Evaluation note* Encounter Date Diagnosis Assessment Notes Treatment Notes Treatment Clinical Notes Jul, Acute non-recurrent maxillary sinusitis (ICD-10 - J01.00) Jul, Anaphylaxis, sequela (ICD-10 - T78.2XXS) [employer] Other 02-09-2023 Evaluation note* Encounter Date Diagnosis Assessment Notes Treatment Notes Treatment Clinical Notes Jul, Acute non-recurrent maxillary sinusitis (ICD-10 - J01.00) [employer] Other 02-06-2023 Evaluation note* Encounter Date Diagnosis Assessment Notes Treatment Notes Treatment Clinical Notes Jul, Acute non-recurrent maxillary sinusitis (ICD-10 - J01.00) Instructed to use Robitussin or Mucinex for cough, saline or Flonase NS for congestion, Tylenol for pain and fever. [employer] Other 01-04-2023 Evaluation note* Encounter Date Diagnosis Assessment Notes Treatment Notes Treatment Clinical Notes Jun, Acute non-recurrent maxillary sinusitis (ICD-10 - J01.00) Instructed to use Robitussin or Mucinex for cough, saline or Flonase NS for congestion, Tylenol for pain and fever. [employer] Other 09-26-2022 [facility]Evaluation noteNo assessment information availableOhiohealth Dublin [facility] Work Phone: Evaluation noteNo InformationNort [employer] Other History and physical note Author Barry Machado [facility] March 06, 2022 8:44am Note Date/Time March 06, 2022 8:44am [facility] [address] [place] [address] Gastroenterology H&P Signed Patient: Lucian Vallecillo MR#: [id number] : 1970 Acct:[id number] Age/Sex: 51 / F Adm Date: 2 Loc: Room: Type: [facility] Attending Dr: Barry Machado MD Copies to: DO Barry Hercules MD~ Date of Service: 03/06/2022 HISTORY & PHYSICAL: Patient's history with special attention to the cardiovascular, pulmonary systems and the current problem was reviewed with the patient immediately prior to the procedure. Present medications and doses reviewed in the EMR. Allergies and pertinent laboratory tests were also reviewedat this time in the EMR. The physical examination, as below, was then performed. Indication, assessment and HPI: 51 yo F presents for screening colonoscopy Family history of GI malignancy? No PHYSICAL EXAMINATION Mouth and Pharynx : Moist mucus membranes, normal dentition Cardiac: Regular rate, regular rhythm Pulmonary: Clear to auscultation bilaterally, no wheezing Neurological: Alert and oriented x3, no focal deficits noted Abdomen: Abdomen soft, non-tender REVIEW OF SYSTEMS Constitutional: Denies malaise, fevers Cardiovascular: Denies chest pain, palpitations Respiratory: Denies shortness of breath, wheezing Gastrointestinal: Per HPI Genitourinary: Denies dysuria, polyuria Musculoskeletal: Denies joint swelling, joint stiffness Neurological: Denies numbness, tingling Integumentary: Denies rashes, skin lesions Endocrine: Denies fatigue, weight loss Written informed consent obtained from the patient. Risks (including but not limited to perforation, infection, bloating, bleeding, need for emergent surgeryand loss of life), benefits and alternatives explained and questions answered. The patient verbalized understanding. Based on history patient is an appropriate candidate for the procedure. Barry Machado MD Documented By: Barry Machado MD 03/06/22843 Signed By: <Electronically signed by Barry Machado MD> 03/06/22843 [facility] Work Phone: History general Narrative - Reported* Type Description Date Surgical History tonsillectomy and adenoidectomy Surgical History ablasion [employer] Other Summary Purpose Family History Relationship Condition Age at Onset Recorded Date/T honorio father Malignant melanoma Unknown Not Specified Malignant melanoma Unknown Advance Directives Advance Directive Response Recorded Date/ Time Advance Directives No June 26, 2017 3:48pm Chief Complaint and Reason for Visit Chief Complaint Abnormal Mammogram Chief Complaint Screening Screening Additional Source Comments INFORMATION SOURCE (unrecogn ized section and content) DATE CREATED AUTHOR 12/29/2019 Paul Strauss [employer] [facility] DATE CREATED AUTHOR AUTHOR'S ORGANIZ ATION 02/18/2022 [facility] DATE CREATED AUTHOR AUTHOR'S ORGANIZ ATION 04/06/2022 [facility] DATE CREATED AUTHOR AUTHOR'S ORGANIZ ATION 07/13/2022 [facility] Care Teams (unrecognized sec tion and content) Team Status: Inactive Member Role Status Dates Bill Kumari , Primary Care Provider Active Jean Osman Attending Provider Active Team Status: Active Member Role Status Dates Bill Kumari , DO Primary Care Provider Active Team Status: Inactive Member Role Status Dates Bill Kumari , DO Primary Care Provider Active Barry Machado MD Attending Provider Active Goals (unrecognized section and content) Goals may be documented in a n alternate sectionNo InformationNo InformationNo InformationNo InformationNo InformationNo InformationNo Information REASON FOR VISIT (unrecogniz ed section and content) Possible ATBSick [phone] 6COLDS, SORE THROATDifferent ATBATBSinus infectionSinus Infection- [phone] FOR RECORDS PERTAINING TO PATIENTS WHO ARE OR HAVE BEEN ENROLLED IN A CHEMICAL DEPENDENCY/SUBSTANCEABUSE PROGRAM, SOME INFORMATION MAY BE OMITTED. This clinical summary was aggregated from multiple sources. Caution should be exercised in using it in the provision of clinical care. This summary normalizes information from multiple sources, and as a consequence, information in this document may materially change the coding, format and clinical context of patient data. In addition, data may be omitted in some cases. CLINICAL DECISIONS SHOULD BE BASED ON THE PRIMARY CLINICAL RECORDS. [facility]. provides no warranty or guarantee of the accuracy or completeness of information in this document.
[2023-06-01 10:32] LABS: Estimated Average Glucose 97 mg/dL
[2023-06-01 11:11] LABS: Free T3 2.76 pg/mL (2.18-3.98); Glucose 90 mg/dL (74-106); Thyroid Stimulating Hormone 2.923 uIU/mL (0.358-3.740)
[2023-06-01 12:16] LABS: Free T4 0.93 ng/dL (0.76-1.46)
[2023-06-02 08:10] LABS: DHEA-Sulfate 88.5 ug/dL (41.2-243.7); Estradiol 41.4 pg/mL (.); Progesterone 0.1 ng/mL (.)
[2023-06-03 12:07] LABS: Insulin 6.8 uIU/mL (2.6-24.9)
[2023-06-03 14:08] LABS: C-Peptide, Serum 1.7 ng/mL (1.1-4.4)
[2023-06-05 15:08] LABS: Thyroglobulin Antibody <1.0 IU/mL (0.0-0.9); Thyroid Peroxidase (TPO) Ab 17 IU/mL (0-34)
[2023-06-06 15:12] LABS: Estrone, Serum 32 pg/mL (.)
[2023-06-08 06:08] LABS: Serotonin, Serum 107 ng/mL (31-207)
[2023-06-11 04:06] LABS: Reverse T3, Serum 12.7 ng/dL (9.2-24.1)
[2023-06-14 00:06] LABS: Free Testosterone(Direct) 1.1 pg/mL (0.0-4.2); Testosterone 8 ng/dL (4-50)
[2023-06-22 04:09] LABS: Cortisol, Free Dialysis, LCMS 0.583 ug/dL (.)
== END 2023-06-01 08:59 | disposition home or self-care (01) ==
LOC: LAB 09:02
PROVIDERS: PCP Internal Medicine; Visit Provider Obstetrics & Gynecology
DX: E34.9 Endocrine disorder, unspecified (principal); R53.83 Other fatigue; F52.9 Unspecified sexual dysfunction not due to a substance or known physiological condition
CPT/HCPCS: 36415; 82306; 82530; 82627; 82670; 82679; 82728; 82947; 83036; 83525; 84144; 84260; 84270; 84402; 84403; 84436; 84439; 84443; 84481; 84482; 84681; 86376; 86800

== ENCOUNTER 2024-05-02 08:38 | Outpatient (OUT) | payer OTHER, SELFPAY ==
--- OUTSIDE RECORDS SUMMARY | 2024-05-02 09:05 | XMS_ITS | CCD ---
Author Organization [facility] Care Team Providers Care Sole Cutter Name Role Phone DO Bill Kumari Primary Care Provider [phone] Jean Osman Attending Provider DO Bill Kumari Primary Care Provider [phone] MD Barry Machado Attending Provider [phone] QUOC, DR BERNABE Primary Care Unavailable BALL, DR BERNABE Admitting Unavailable BALL, DR BERNABE Attending Unavailable BALL, DR BERNABE Consulting Unavailable BALL, DR BERNABE Primary Care Unavailable BALL, DR BERNABE Admitting Unavailable BALL, DR BERNABE Attending Unavailable BALL, DR BERNABE Consulting Unavailable BROWN, PEREZ Consulting Unavailable HOWARD, DR PENA Attending Unavailable HOWARD, DR PENA Consulting Unavailable BALL, DR BERNABE Primary Care Unavailable HOWARD, DR PENA Admitting Unavailable BALL, DR BERNABE Primary Care Unavailable BALL, DR BERNABE Admitting Unavailable BALL, DR BERNABE Attending Unavailable BALL, DR BERNABE Consulting Unavailable WEST, DR TODD V Consulting Unavailable BALL, DR BERNABE Primary Care Unavailable BALL, DR BERNABE Admitting Unavailable BALL, DR BERNABE Attending Unavailable BALL, DR BERNABE Consulting Unavailable Ball, Bill Unavailable DO Bill Kumari Primary Care Provider [phone] Self, Referral Attending Provider Unavailable Bill Kumari Primary Care Unavailable Self, Referral Attending Unavailable Self, Referral Admitting Unavailable DO Bill Kumari Primary Care Provider Self, Referral Attending Provider Unavailable Emily Soriano Unavailable [phone] EMILY SALEH Attending Unavailable EMILY SALEH Attending Unavailable JEAN OSMAN Attending Unavailable Allergies Allergy Classification Reported Allergen(s) Allergy Type Date of Onset Reaction(s) Facility (4 sources) Penicillin Drug Allergy 06-21-19 11 PENICILLIN [facility] Repository (9 sources) Penicillin G Drug Allergy 10-02-[address] [facility] (3 sources) Substance with penicillin structure and antibacterial mechanism of action (substance) Drug allergy 11-26-19 Unknown [employer] Other (3 sources) Bee Sting Drug allergy 11-26-19 Unknown [employer] Other (3 sources) patient allergy list reviewed by nurse or physicia Propensity to adverse reactions 10-05-19 Comment:Done [employer] Other (3 sources) Allergies Reconciled Propensity to adverse reactions Unknown [facility] [employer] Other (1 source) Penicillin Drug Allergy 03-12-20 [facility] Repository (2 sources) Penicillins Drug allergy (disorder) 03-12-[address] [facility] Repository (2 sources) bee venom protein (honey bee) Drug allergy (disorder) 03-12-20 [facility] Repository (2 sources) Penicillins Drug Allergy 07-31-19 Hives [facility] Work Phone: Medications Current Medications Medication Drug Class(es) Dates Sig (Normalized) Sig (Original) plenvu 140 gm solution reconstituted (8 sources) Osmotic Laxative, Vitamin C Start: 01-27-2022 Plenvu 140 GM dose 1 pouch at 4pm, dose 2 pouch A & B at 11pm Orally twice a day for 1 days BIN:[id number] PCN: [id number] GROUP:[id number] ID:[id number] Jan, Active azithromycin 250 mg oral tablet (14 sources) Macrolide Antimicrobial Start: 10-05-2023 Azithromycin Active 250 MG PO As Directed 6 October 05, 2023 12:00am Start: 06-14-2022 Azithromycin 2 50 MG as directed Orally daily for 5 days Jan, Active cetirizine hydrochloride 10 mg oral tablet (2 sources) Histamine-1 Receptor Antagonist Start: 03-12-2023 take 1 tablet by mouth every twenty-four hours ZyrTEC Allergy 10 MG 1 tablet Orally Once a day for 30 days Mar, Active doxycycline hyclate 100 mg oral capsule (8 sources) Tetracycline-class Drug Start: 07-17-2022 take 1 capsule by mouth every twelve hours Doxycycline Hyclate 100 MG 1 capsule Orally Twice a day for 14 days Jul, Active [id number] 0.3 ml EPINEPHrine 1 mg/ml auto-injector (10 sources) alpha-Adrenergic Agonist, beta-Adrenergic Agonist, Catecholamine Start: 07-31-2022 EpiPen 2-Lew 0.3 MG/0.3ML as directed Injection Once as needed for allergic reaction for 30 days Jul, Active EPINEPHrine (Epi pen) 0.3 MG/0.3ML injection syringe USE DIRECTED FOR ALLERGIC REACTION Active fluticasone propionate 0.05 mg/actuat metered dose nasal spray (2 sources) Corticosteroid Start: 03-12-2023 take 1 spray(s) nasal route once daily Flonase Allergy Relief 50 MCG/ACT 1 spray in each nostril Nasally Once a day for 30 days Mar, Active Start: 03-12-2023 take 1 spray(s) nasa l route once daily Flonase Allergy Relief 50 MCG/ACT 1 spray in each nostril Nasally Once a day for 30 days Mar, Active ketoconazole 20 mg/ml medicated shampoo (2 sources) Azole Antifungal Start: 04-08-2024 ketoconazole (NIZOral) 2 % shampoo 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, leave on 5-10 min before rinsing 118 mL 11 04/08/2024 Active Start: 04-08-2024 ketoconazole ( NIZOral) 2 % shampoo 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, leave on 5-10 min before rinsing 118 mL 11 04/08/2024 Active levoFLOXacin 500 mg oral tablet (8 sources) Quinolone Antimicrobial Start: 07-20-2022 take 1 tablet by mouth every twenty-four hours levoFLOXacin 500 MG 1 tablet Orally Once a day for 10 days Jul, Active Problems Active Problems Problem Classification Problem Date Documented Date Episodic/Chronic Abdominal pain (7 sources) Right upper quadrant pain; Translations: [Right upper quadrant pain] Onset: 01-17-2022 Episodic Acute bronchitis (3 sources) Acute bronchitis; Translations: [Acute bronchitis due to other specified organisms] Episodic Allergic reactions (9 sources) Anaphylactic shock, unspecified, initial encounter; Translations: [Idiopathic urticaria] Onset: 11-06-2014 Episodic Asthma (9 sources) Mild intermittent asthma; Translations: [Mild intermittent asthma, uncomplicated] Onset: 10-04-2017 Chronic Cancer of cervix (6 sources) Atypical squamous cells of undetermined significance on cervical Papanicolaou smear; Translations: [Atypical squamous cells of undetermined significance on cytologic smear of cervix (ASC-US)] Episodic Cardiac dysrhythmias (3 sources) Palpitations; Translations: [Palpitations] Episodic Deficiency and other anemia (3 sources) Anemia; Translations: [Anemia, unspecified] Episodic Genitourinary symptoms and ill-defined conditions (3 sources) Female stress incontinence; Translations: [Female stress incontinence] Onset: 10-04-2017 Chronic Genitourinary symptoms and ill-defined conditions (10 sources) Dysuria; Translations: [Genitourinary symptoms] Onset: 09-30-2021 Episodic Intestinal infection (3 sources) Infectious colitis, enteritis and gastroenteritis; Translations: [Infectious gastroenteritis and colitis, unspecified] Episodic Mycoses (3 sources) Candidiasis; Translations: [Candidiasis, unspecified] Episodic Nonmalignant breast conditions (3 sources) Fibrocystic disease of breast; Translations: [Diffuse cystic mastopathy of unspecified breast] Chronic Nonmalignant breast conditions (19 sources) Cyst of breast; Translations: [Solitary cyst of left breast] Resolved: 07-24-2018 05-22-2018 Episodic Other and unspecified benign neoplasm (2 sources) Melanocytic nevus of trunk; Translations: [Melanocytic nevi of trunk] 04-08-2024 Episodic Other circulatory disease (2 sources) Spider nevus; Translations: [Nevus, non-neoplastic] 04-08-2024 Episodic Other female genital disorders (3 sources) Disorder of female genital system; Translations: [Personal history of other diseases of the female genital tract] Episodic Other injuries and conditions due to external causes (1 source) Anaphylactic shock, unspecified, sequela Episodic Other lower respiratory disease (6 sources) Dyspnea; Translations: [Shortness of breath] Resolved: 02-05-2022 Episodic Other nervous system disorders (3 sources) Neuralgic amyotrophy; 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 Other non-traumatic joint disorders (3 sources) Shoulder joint pain; Translations: [Pain in right shoulder] Episodic Other screening for suspected conditions (not mental disorders or infectious disease) (7 sources) Encounter for screening for malignant neoplasm of cervix; Translations: [Abnormal findings on diagnostic imaging of breast] Onset: 12-26-2021 Episodic Other skin disorders (2 sources) Seborrheic keratosis; Translations: [Other seborrheic keratosis] 04-08-2024 Episodic Other skin disorders (2 sources) Lentiginosis; Translations: [Other melanin hyperpigmentation] 04-08-2024 Episodic Other skin disorders (2 sources) Male pattern alopecia; 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, unspecified] 04-08-2024 Episodic Other upper respiratory disease (3 sources) Seasonal allergic rhinitis; Translations: [Other seasonal allergic rhinitis] Chronic Other upper respiratory disease (2 sources) Allergic rhinitis due to pollen; Translations: [Allergic rhinitis due to pollen] Chronic Other upper respiratory disease (1 source) Allergic rhinitis due to pollen Chronic Other upper respiratory disease (1 source) Allergic rhinitis; Translations: [Allergic rhinitis, unspecified] 10-05-2023 Chronic Other upper respiratory disease (1 source) Allergic rhinitis, unspecified; Translations: [Allergic rhinitis, cause unspecified] 10-05-2023 Chronic Other upper respiratory infections (16 sources) Acute maxillary sinusitis, unspecified; Translations: [Acute upper respiratory infection] Episodic Residual codes; unclassified (3 sources) Preventive procedure; Translations: [Encounter for other specified prophylactic measures] Episodic Sprains and strains (6 sources) Strain of neck muscle; Translations: [Strain of muscle, fascia and tendon at neck level, subsequent encounter] Episodic Unclassified (3 sources) 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); Translations: [Post COVID-19 condition, unspecified] Unclassified (1 source) Encounter for screening mammogram for malignant neoplasm of breast; Translations: [Encounter for screening mammogram for malignant neoplasm of breast] Onset: 07-10-2023 Viral infection (6 sources) Infectious mononucleosis; Translations: [Infectious mononucleosis, unspecified without complication] Episodic Past or Other Problems Problem Classification Problem Date Documented Date Episodic/Chronic Bacterial infection; unspecified site (3 sources) Bacterial infectious disease; Translations: [Bacterial infection, unspecified, in conditions classified elsewhere and of unspecified site] Onset: 07-07-2016 Episodic Immunizations and screening for infectious disease (1 source) Encounter for screening for human papillomavirus (HPV); Translations: [ENC SCREENING HUMAN PAPILLOMAVIRUS] Onset: 12-27-2021 Episodic Lymphadenitis (3 sources) Localized enlarged lymph nodes; Translations: [Localized enlarged lymph nodes] Onset: 07-07-2016 Episodic Malaise and fatigue (3 sources) Fatigue; Translations: [Other fatigue] Resolved: 02-05-2022 Episodic Other lower respiratory disease (3 sources) Cough; Translations: [Cough] Onset: 10-04-2017 Episodic Other nutritional; endocrine; and metabolic disorders (3 sources) Overweight; Translations: [Overweight] Onset: 07-29-2018 Episodic Other nutritional; endocrine; and metabolic disorders (3 sources) Abnormal weight gain; Translations: [Abnormal weight gain] Resolved: 02-05-2022 Episodic Other nutritional; endocrine; and metabolic disorders (3 sources) Body mass index 25-29 - overweight; Translations: [Body mass index 26.0-26.9, adult] Onset: 07-29-2018 Episodic Other skin disorders (3 sources) Alopecia; Translations: [Unspecified alopecia] Onset: 05-05-2015 Episodic Unclassified (3 sources) Exposure to acute respiratory syndrome coronavirus 2; Translations: [Contact with and (suspected) exposure to COVID-19] Unclassified (3 sources) Unspecified lump in the right breast, overlapping quadrants; Translations: [Unspecified lump in the right breast, overlapping quadrants] Urinary tract infections (3 sources) Urinary tract infectious disease; Translations: [Urinary tract infection, site not specified] Onset: 05-09-2016 Episodic Viral infection (3 sources) Disease caused by 2019-nCoV; Translations: [COVID-19] Results Test Name Value Interpretation Reference Range Facility MM screening mammo BI w/CADo n 07-10-2023 MM screening mammo BI w/CAD [facility] [place] [address] Mammography Report Signed Patient: Leigh Vallecillo MR#: [id number] [birth year] : 1970 Acct:[id number] Age/Sex: 52 / F ADM Date: 07/10/23 Loc: [place] Room: [facility] Attending Dr: Referral Self Copies to: Bill Kumari DO SELF,REFERRAL Ordering Provider: SELF,REFERRAL Date of Service: 07/10/23 MM/MM screening mammo BI w/CAD: SCREENING CLINICAL DATA: Screening for malignancy. BILATERAL SCREENING MAMMOGRAMS - FULL FIELD DIGITAL WITH TOMOSYNTHESIS AND CAD Tomosynthesis craniocaudal and mediolateral oblique views of both breasts were obtained using low- dose digital technique. Comparison is made to prior studies from January 12, 2020 (right) through July 07, 2022. This examination was reviewed with the aid of CAD. The breast parenchyma is heterogeneously dense. A biopsy marking clip is seen at the slightly lateral and inferior right breast. There are multiple scattered punctate calcifications. There are no definite developing masses, typically malignant calcifications or architectural distortion. There has been no significant interval change. MM/MM screening mammo BI w/CAD IMPRESSION: NO MAMMOGRAPHIC EVIDENCE OF MALIGNANCY. ROUTINE FOLLOW-UP IS RECOMMENDED IN ONE YEAR. RESULT CODE: 2 Benign Findings(s) DENSITY CODE: 3 (approximately 51-75% glandular) FOLLOW UP: 1YR The false-negative rate of mammography is approximately 10-percent. Management of a palpable abnormality must be based on clinical grounds. Patient was entered into a reminder system with a target due date for the next mammogram. Impression dictated by: Matilda Floyd M.D.07/10/2023 3:46 PM Dictation Location: [facility] Transcribed By: TY 07/10/23 1546 Dictated By: Matilda Floyd MD 07/10/23 1541 Signed By: 07/10/23 1546 [facility] CBC AUTO DIFFon 04-01-2022 BASO # 0.1 103/ul Normal 0.0-0.1 [facility] Comment on above: Performed By: #### C BC #### [facility] [address] [address] [address] Naren Leon Basophils/100 WBC (Bld) 0.7 % Normal 0.2-2.0 [facility] Comment on above: Performed By: #### C BC #### [facility] [address] [address] [address] Naren Leon EO # 0.3 103/ul Normal 0.0-0.7 [facility] Comment on above: Performed By: #### C BC #### [facility] [address] [place] [address] Dr. Naren Leon Eosinophils/100 WBC (Bld) 3.7 % Normal 0.9-7.0 [facility] Comment on above: Performed By: #### C BC #### [facility] [address] [place] [address] Dr. Naren Leon Erythrocyte distribution width (RBC) [Ratio] 13.6 % Normal 11.0-15.0 [facility] Comment on above: Performed By: #### C BC #### [facility] [address] [place] [address] Dr. Naren Leon Hematocrit (Bld) [Volume fraction] 43.1 % Normal 36.0-48.0 [facility] Comment on above: Performed By: #### C BC #### [facility] [address] [place] [address] Dr. Naren Leon Hemoglobin (Bld) [Mass/Vol] 14.5 g/dL Normal 12.0-16.0 [facility] Comment on above: Performed By: #### C BC #### [facility] [address] [place] [address] Dr. Naren Leon IG # 0.03 10e3/ul Normal 0.00-0.03 [facility] Comment on above: Performed By: #### C BC #### [facility] [address] [place] [address] Dr. Naren Leon IG % 0.3 % Normal 0.0-0.5 [facility] Comment on above: Performed By: #### C BC #### [facility] [address] [place] [address] Dr. Naren Leon LYMPH # 2.8 103/ul Normal 1.2-3.8 [facility] Comment on above: Performed By: #### C BC #### [facility] [address] [place] [address] Dr. Naren Leon Lymphocytes/100 WBC (Bld) 30.3 % Normal 20.5-60.0 [facility] Comment on above: Performed By: #### C BC #### [facility] [address] [place] [address] Dr. Naren Leon MANUAL DIFF REQ NO Normal [facility] Comment on above: Performed By: #### C BC #### [facility] [address] [place] [address] Dr. Naren Leon MCH (RBC) [Entitic mass] 28.5 pg Normal 26.7-34.0 [facility] Comment on above: Performed By: #### C BC #### [facility] [address] [place] [address] Dr. Naren Leon MCHC (RBC) [Mass/Vol] 33.6 g/dL Normal 29.9-35.2 [facility] Comment on above: Performed By: #### C BC #### [facility] [address] [place] [address] Dr. Naren Leon MCV (RBC) [Entitic vol] 84.8 fL Normal 81.0-99.0 [facility] Comment on above: Performed By: #### C BC #### [facility] [address] [place] [address] Dr. Naren Leon MONO # 0.7 103/ul Normal 0.3-0.8 [facility] Comment on above: Performed By: #### C BC #### [facility] [address] [place] [address] Dr. Naren Leon Monocytes/100 WBC (Bld) 7.2 % Normal 1.7-12.0 [facility] Comment on above: Performed By: #### C BC #### [facility] [address] [place] [address] Dr. Naren Leon NEUT # 5.3 103/ul Normal 1.4-6.5 [facility] Comment on above: Performed By: #### C BC #### [facility] [address] [place] [address] Dr. Naern Leon Neutrophils/100 WBC (Bld) 57.8 % Normal 43.0-75.0 [facility] Comment on above: Performed By: #### C BC #### [facility] [address] [address] [address] Naren Leon Platelet mean volume (Bld) [Entitic vol] 10.2 fL Normal 9.5-13.5 [facility] Comment on above: Performed By: #### C BC #### [facility] [address] [address] [address] Naren Leon PLT 295 103/ul Normal 150-450 [facility] Comment on above: Performed By: #### C BC #### [facility] [address] [address] [address] Naren Leon RBC 5.08 106/ul Normal 4.20-5.40 [facility] Comment on above: Performed By: #### C BC #### [facility] [address] [address] [address] Naren Leon WBC 9.1 103/ul Normal 4.0-11.0 [facility] Comment on above: Performed By: #### C BC #### [facility] [address] [address] [address] Naren Leon LIPID PROFILEon 04-01-2022 CHOL-HDL RATIO NORM SEE BELOW Normal [facility] Comment on above: Result Comment: 3.3 - 4.4 LOW RISK 4.4 - 7.1 AVERAGE RISK 7.1 - 11.0 MODERATE RISK >11.0 HIGH RISK Performed By: #### T SH, LIPID, CMP #### [facility] [address] [address] [address] Naren Leon Cholesterol [Mass/Vol] 229 mg/dL Critically high <=200 [facility] Comment on above: Performed By: #### T SH, LIPID, CMP #### [facility] [address] [address] [address] Naren Leon Cholesterol in HDL [Mass/Vol] 65 mg/dL Critically high 40-60 [facility] Comment on above: Performed By: #### T SH, LIPID, CMP #### [facility] [address] [place] [address] Dr. Naren Leon Cholesterol in LDL [Mass/Vol] 147.8 mg/dL Normal [facility] Comment on above: Performed By: #### T SH, LIPID, CMP #### [facility] [address] [address] [address] Naren Leon Cholesterol.total/Chol esterol in HDL [Mass ratio] 3.5 {ratio} Normal [facility] Comment on above: Performed By: #### T SH, LIPID, CMP #### [facility] [address] [address] [address] Naren Leon HDL NORMAL > or = 60 mg/dl - LOW CARDIOVASCULAR RISK <40 mg/dl - HIGH CARDIOVASCULAR RISK Normal [facility] Comment on above: Performed By: #### T SH, LIPID, CMP #### [facility] [address] [place] [address] Dr. Naren Leon LDL CALC NORMAL SEE BELOW Normal [facility] Comment on above: Result Comment: <100 mg/dl OPTIMAL 100 - 129 mg/dl NEAR OR ABOVE OPTIMAL 130 - 159 mg/dl BORDERLINE HIGH 160 - 189 mg/dl HIGH >190 mg/dl VERY HIGH Performed By: #### T SH, LIPID, CMP #### [facility] [address] [address] [address] Naren Leon Triglyceride [Mass/Vol] 81 mg/dL Normal <=150 [facility] Comment on above: Performed By: #### T SH, LIPID, CMP #### [facility] [address] [place] [address] Dr. Naren Leon VLDL CALC 16.2 mg/dL Normal [facility] Comment on above: Performed By: #### T SH, LIPID, CMP #### [facility] [address] [place] [address] Dr. Naren Leon PROF 14(COMP METB)on 022 Albumin [Mass/Vol] 3.9 g/dL Normal 3.4-5.0 [facility] Comment on above: Performed By: #### T SH, LIPID, CMP #### [facility] [address] [place] [address] Dr. Naren Leon Albumin/Globulin [Mass ratio] 1.1 {ratio} Normal [facility] Comment on above: Performed By: #### T SH, LIPID, CMP #### [facility] [address] [address] [address] Naren Leon ALP [Catalytic activity/Vol] 53 U/L Normal 46-116 [facility] Comment on above: Performed By: #### T SH, LIPID, CMP #### [facility] [address] [address] [address] Naren Leon ALT [Catalytic activity/Vol] 24 U/L Normal 14-59 [facility] Comment on above: Performed By: #### T SH, LIPID, CMP #### [facility] [address] [address] [address] Naren Leon Anion gap [Moles/Vol] 11.1 mmol/L Normal [facility] Comment on above: Performed By: #### T SH, LIPID, CMP #### [facility] [address] [address] [address] Naren Leon AST [Catalytic activity/Vol] 16 U/L Normal 15-37 [facility] Comment on above: Performed By: #### T SH, LIPID, CMP #### [facility] [address] [address] [address] Naren Leon Bilirubin [Mass/Vol] 0.5 mg/dL Normal 0.2-1.0 [facility] Comment on above: Performed By: #### T SH, LIPID, CMP #### [facility] [address] [address] [address] Naren Leon Calcium [Mass/Vol] 8.7 mg/dL Normal 8.5-10.1 [facility] Comment on above: Performed By: #### T SH, LIPID, CMP #### [facility] [address] [address] [address] Naren Leon Chloride [Moles/Vol] 103 mmol/L Normal 98-107 [facility] Comment on above: Performed By: #### T SH, LIPID, CMP #### [facility] [address] [address] [address] Naren Leon CO2 [Moles/Vol] 27.8 mmol/L Normal 21.0-32.0 [facility] Comment on above: Performed By: #### T SH, LIPID, CMP #### [facility] [address] [address] [address] Naren Leon Creatinine [Mass/Vol] 0.87 mg/dL Normal 0.55-1.02 [facility] Comment on above: Performed By: #### T SH, LIPID, CMP #### [facility] [address] [address] [address] Naren Leon EGFR-AF CYPRIOT >60 Normal >=60 [facility] Comment on above: Performed By: #### T SH, LIPID, CMP #### [facility] [address] [address] [address] Naren Leon EGFR-NON AF CYPRIOT >60 Normal >=60 [facility] Comment on above: Performed By: #### T SH, LIPID, CMP #### [facility] [address] [address] [address] Naren Leon Globulin (S) [Mass/Vol] 3.6 g/dL Normal [facility] Comment on above: Performed By: #### T SH, LIPID, CMP #### [facility] [address] [address] [address] Naren Leon Glucose [Mass/Vol] 90 mg/dL Normal 74-106 [facility] Comment on above: Performed By: #### T SH, LIPID, CMP #### [facility] [address] [address] [address] Naren Leon Potassium [Moles/Vol] 3.9 mmol/L Normal 3.5-5.1 [facility] Comment on above: Performed By: #### T SH, LIPID, CMP #### [facility] [address] [address] [address] Naren Leon Protein [Mass/Vol] 7.5 g/dL Normal 6.4-8.2 [facility] Comment on above: Performed By: #### T SH, LIPID, CMP #### [facility] [address] [address] [address] Naren Leon Sodium [Moles/Vol] 138 mmol/L Normal 136-145 [facility] Comment on above: Performed By: #### T SH, LIPID, CMP #### [facility] [address] [place] [address] Dr. Naren Leon Urea nitrogen [Mass/Vol] 15.0 mg/dL Normal 7.0-18.0 [facility] Comment on above: Performed By: #### T SH, LIPID, CMP #### [facility] [address] [place] [address] Dr. Naren Leon Urea nitrogen/Creatinine [Mass ratio] 17.2 mg/mg Normal [facility] Comment on above: Performed By: #### T SH, LIPID, CMP #### [facility] [address] [place] [address] Dr. Naren Leon TSHon 04-01-2022 TSH 2.283 uIU/mL Normal 0.358-3.740 [facility] Comment on above: Performed By: #### T SH, LIPID, CMP #### [facility] [address] [place] [address] Dr. Naren Leon HCG ( test) IA.rapi d Ql (U)Ordered By: Barry Machado on 03-06-2022 HCG ( test) Ql (U) Negative [facility] COVID-19 SOFIAOrdered By: Susana Machado on 03-02-2022 SARS-CoV+SARS-CoV-2 (COVID-19) Ag IA.rapid Ql (Resp) Negative Negative [facility] Comment on above: This is a duplicate Cristine SARS Antigen (BRYAN) result to be used for statistical tracking purpose only. No Panel InformationOrdered By: Barry Machado on 03-02-2022 SARS Antigen (LFIA) [facility] Abstracton 02-11-2022 Abstract [id number] Leigh Vallecillo 1970 F Date Provider Department Center 02/11/2022 SHAN CHA [facility] Family History Problem Relation Age of Onset Other Mother Other Father Diabetes Paternal Grandmother Family Status - Relation Status Age at Mother Father Paternal Grandmother Normal [facility] NM HEPATOBILIARY SCAN W EFon 01-17-2022 NM [...] by: PEREZ HILL Date: 2022-01-17 18:39 Normal [facility] PAP ACOG PANEL 2: 30 to 65on 12-30-2021 . . Normal [facility] Comment on above: Result Comment: Perf ormed at: WB Performed By: #### [id number] #### [facility] [address] [place] [address] Dr. Naren Leon Age Gdln ACOG Testing 30-65 Normal [facility] Comment on above: Performed By: #### [id number] #### [facility] [address] [address] [address] Naren Leon DIAGNOSIS: Comment Abnormal [facility] Comment on above: Result Comment: EPIT HELIAL CELL ABNORMALITY. ATYPICAL SQUAMOUS CELLS OF UNDETERMINED SIGNIFICANCE (ASC-US). Performed at: WB Performed By: #### [id number] #### [facility] [address] [address] [address] Naren Leon Electronically signed by: Comment Normal [facility] Comment on above: Result Comment: Kaya Mtz MD, Pathologist Performed at: WB Performed By: #### [id number] #### [facility] [address] [address] [address] Naren Leon HPV Aptima Negative Normal Negative [facility] Comment on above: Result Comment: This nucleic acid amplification test detects fourteen high-risk HPV types (16,18,31,33,35,39,45,51,52,56,58,59,66,68) without differentiation. Performed at: =G Performed By: #### [id number] #### [facility] [address] [place] [address] Dr. Naren Leon Methodology: Comment Normal [facility] Comment on above: Result Comment: This liquid based ThinPrep(R) pap test was screened with the use of an image guided system. Performed at: WB Performed By: #### [id number] #### [facility] [address] [address] [address] Naren Leon Note: Comment Normal [facility] Comment on above: Result Comment: The Pap smear is a screening test designed to aid in the detection of premalignant and malignant conditions of the uterine cervix. It is not a diagnostic procedure and should not be used as the sole means of detecting cervical cancer. Both false-positive and false-negative reports do occur. . Performed at: WB Performed By: #### [id number] #### [facility] [address] [place] [address] Dr. Naren Leon Pathologist Provided ICD10 Comment Normal [facility] Comment on above: Result Comment: [id number] Performed at: WB Performed By: #### [id number] #### [facility] [address] [place] [address] Dr. Naren Leon Performed by: Comment Normal [facility] Comment on above: Result Comment: [place] [employer] Equipment Inspector (ASCP) Performed at: WB Performed By: #### [id number] #### [facility] [address] [place] [address] Dr. Naren Leon Recommendation: Comment Abnormal [facility] Comment on above: Result Comment: Sugg est follow up as clinically appropriate. Performed at: WB Performed By: #### [id number] #### [facility] [address] [address] [address] Naren Leon Specimen adequacy: Comment Normal [facility] Comment on above: Result Comment: Sati sfactory for evaluation. Endocervical and/or squamous metaplastic cells (endocervical component) are present. Performed at: Performed By: #### [id number] #### [facility] [address] [place] [address] Dr. Naren Leon US SINGLE QUAD RT [...] PEREZ ARAUJO Date: 2021-12-29 08:29 Normal [facility] CULTURE URINEon 09-30-2021 CULTURE URINE Culture Observations: LIGHT GROWTH OF MIXED GENITAL JEFF. NO POTENTIAL PATHOGENS SEEN. Normal [facility] Comment on above: Performed By: #### U RCX #### [facility] [address] [place] [address] Dr. Naren Leon UA RANDOM W/MICROSCOPICon BACTERIA TRACE Abnormal NONE SEEN [facility] Comment on above: Performed By: #### U AMIC #### [facility] [address] [place] [address] Dr. Naren Leon Bilirubin Ql (U) Negative Normal NEGATIVE [facility] Comment on above: Performed By: #### U AMIC #### [facility] [address] [place] [address] Dr. Naren Leon CAST NONE SEEN Normal NONE SEEN [facility] Comment on above: Performed By: #### U AMIC #### [facility] [address] [place] [address] Dr. Naren Leon Clarity (U) CLEAR Normal CLEAR [facility] Comment on above: Performed By: #### U AMIC #### [facility] [address] [address] [address] Naren Leon Color (U) LT. YELLOW Normal YELLOW [facility] Comment on above: Performed By: #### U AMIC #### [facility] [address] [address] [address] Naren Leon Crystals LM Nom (Urine sed) NONE SEEN Normal NONE SEEN [facility] Comment on above: Performed By: #### U AMIC #### [facility] [address] [address] [address] Naren Leon Epithelial cells LM Ql (Urine sed) MODERATE Abnormal NONE SEEN /RARE [facility] Comment on above: Performed By: #### U AMIC #### [facility] [address] [place] [address] Dr. Naren Leon Glucose Ql (U) Negative Normal NEGATIVE [facility] Comment on above: Performed By: #### U AMIC #### [facility] [address] [place] [address] Dr. Naren Leon Hemoglobin Ql (U) Negative Normal NEGATIVE [facility] Comment on above: Performed By: #### U AMIC #### [facility] [address] [place] [address] Dr. Naren Leon Ketones Ql (U) Negative Normal NEGATIVE [facility] Comment on above: Performed By: #### U AMIC #### [facility] [address] [address] [address] Naren Leon LEUKOCYTES TRACE Abnormal NEGATIVE [facility] Comment on above: Performed By: #### U AMIC #### [facility] [address] [address] [address] Naren Leon MUCOUS TRACE Abnormal NONE SEEN [facility] Comment on above: Performed By: #### U AMIC #### [facility] [address] [place] [address] Dr. Naren Leon Nitrite Ql (U) Negative Normal NEGATIVE [facility] Comment on above: Performed By: #### U AMIC #### [facility] [address] [address] [address] Naren Leon pH (U) 6.0 [pH] Normal 5-9 [facility] Comment on above: Performed By: #### U AMIC #### [facility] [address] [address] [address] Naren Leon RBC 0-2 Normal 0-2 [facility] Comment on above: Performed By: #### U AMIC #### [facility] [address] [address] [address] Naren Leon SPEC GRAVITY <=1.005 Abnormal 1.005-<=1.025 [facility] Comment on above: Performed By: #### U AMIC #### [facility] [address] [place] [address] Dr. Naren Leon UA PROTEIN Negative Normal NEGATIVE/ TRACE [facility] Comment on above: Performed By: #### U AMIC #### [facility] [address] [address] [address] Naren Leon Urobilinogen Qn (U) 0.2 {Daiana'U}/dL Normal 0.2 - 1. 0 [facility] Comment on above: Performed By: #### U AMIC #### [facility] [address] [place] [address] Dr. Naren Leon WBC 0-2 Abnormal NONE SEEN [facility] Comment on above: Performed By: #### U AMIC #### [facility] [address] [place] [address] Dr. Naren Leon Coding Summary.on 12-17-2019 Coding Summary. CODING DATE: 12/17/2019 FINAL [facility] STATUS: Home (Routine DC) PAYOR: [employer] ADMIT DX: REASON FOR VISIT DX: Z11.59 [...] Shan Gilmore Date Saved: 12/17/2019 06:50 am [facility] Physician Orderon 12-04-2019 Physician Order [id number] 6#[id number]:127 [facility] Vital Signs Date Time Vital Sign Value Performing Clinician Leroy patiño 03-06-2022 09:28-0400 Diastolic blood pressure 73 mm[Hg] DO Bill Ball Work Phone: [facility] 03-06-2022 09:28-0400 Heart rate 62 /min DO Bill Ball Work Phone: [facility] 03-06-2022 09:28-0400 Respiratory rate 16 /min DO Bill Ball Work Phone: [facility] 03-06-2022 09:28-0400 SaO2% (BldA) [Mass fraction] 100 % DO Bill Ball Work Phone: [facility] 03-06-2022 09:28-0400 Systolic blood pressure 115 mm[Hg] DO Bill Ball Work Phone: [facility] 03-06-2022 08:03-0400 Body height 160.02 cm DO Bill Ball Work Phone: [facility] 03-06-2022 08:03-0400 Body temperature 98.7 [degF] DO Bill Ball Work Phone: [facility] 03-06-2022 08:03-0400 Body weight 65.77 kg DO Bill Ball Work Phone: [facility] Encounters Encounter Date Encounter Type Care Provider Facility Start: 04-08-2024 End: 04-08-2024 Office outpatient visit 25 minutes Emily Saleh [employer] REGISTRAR-AGRONOMY SUPERVISOR Work Phone: [facility] Comment on above: Melanocytic nevus of trunk; Seborrheic keratosis; Lentigines; Capillary angioma; Androgenic alopecia Start: 04-08-2024 End: 04-08-2024 ambulatory EMILY A FELTER Not Available Start: 10-05-2023 End: 10-05-2023 ambulatory DO Bill Kumari Work Phone: [facility] Work Phone: Start: 10-05-2023 End: 10-05-2023 Patient encounter procedure DO Bill Ball Work Phone: [facility] Work Phone: Start: 08-30-2023 End: 08-30-2023 ambulatory EMILY Cui FELTER Not Available Start: 07-11-2023 End: 07-11-2023 ambulatory Bill Kumari Other [employer] Other Start: 07-11-2023 Telephone encounter Bill CRYSTAL [facility] Start: 07-10-2023 End: 07-10-2023 ambulatory DO Bill Kumari Work Phone: [facility] Work Phone: Start: 07-10-2023 End: 07-10-2023 Patient encounter procedure DO Bill Kumari Work Phone: [facility] Work Phone: Start: 05-29-2023 End: 05-29-2023 ambulatory JEAN LOPEZO Not Available Start: 03-12-2023 End: 03-12-2023 ambulatory Bill Kumari Other [employer] Other Start: 03-12-2023 Office outpatient vi sit 15 minutes Bill Kumari [facility] Start: 01-24-2023 End: 01-24-2023 ambulatory Bill Kumari Other [employer] Other Start: 01-24-2023 Office outpatient vi sit 15 minutes Bill Kumari [facility] Start: 07-31-2022 End: 07-31-2022 ambulatory Bill Kumari Other [employer] Other Start: 07-31-2022 Telephone encounter Bill CRYSTAL [facility] Start: 07-20-2022 End: 07-20-2022 ambulatory Bill Kumari Other [employer] Other Start: 07-20-2022 Telephone encounter Bill Kumari [facility] Start: 07-17-2022 End: 07-17-2022 ambulatory Bill Kumari Other [employer] Other Start: 07-17-2022 Office outpatient vi sit 15 minutes Bill Kumari [facility] Start: 06-14-2022 ([facility]) [facility] Bill Kumari [facility] Start: 06-14-2022 End: 06-14-2022 ambulatory Bill Kumari Other [employer] Other Start: 06-14-2022 Telephone encounter Bill Kumari [facility] Start: 05-15-2022 Adult health examination Keaton jordan Kumari Other [employer] Other Start: 05-15-2022 Gynecological examin ation normal Bill Quoc Other [employer] Other Start: 04-05-2022 Encounter for genera l adult medical examination without abnormal findings DR BILL KUMARI [facility] Start: 04-01-2022 End: 04-02-[address] BILL KUMARI Facility:[facility] Start: 04-01-2022 End: 04-02-2022 Encounter for general adult medical examination without abnormal findings DR BILL KUMARI Facility:[facility] Start: 03-06-2022 End: 03-06-2022 Admission to same day surgery center DO Bill Kumari Work Phone: [facility] Start: 03-02-2022 End: 03-02-2022 Patient encounter procedure DO Bill Kumari Work Phone: [facility] Start: 01-17-2022 End: 01-18-[address] BILL KUMARI Facility:[facility] Start: 12-29-2021 End: 12-30-[address] BILL KUMARI Facility:[facility] Start: 12-26-2021 End: 12-26-[address] JEAN SOMAN Facility:[facility] Start: 11-22-2021 End: 11-22-2021 Patient encounter procedure DO Bill Definition 6 Phone: [facility] Start: 09-30-2021 End: 10-01-[address] BILL KUMARI Facility:[facility] Start: 11-14-2020 History of abnormal cervical Papanicolaou smear Bill Kumari Other [facility] [employer] Other Procedures Date Procedure Procedure Detail Performing Clinician Start: 07-12-2023 Mammography Emily mata [employer] REGISTRAR-AGRONOMY SUPERVISOR Work Phone: Start: 07-10-2023 Screening mammograph y of bilateral breasts DO Bill Definition 6 Phone: Start: 03-06-2022 Screening colonoscopy D O [employer] Phone: Start: 11-22-2021 Ultrasonography of r ight breast DO Bill Definition 6 Phone: Start: 07-29-2018 General examination of patient Bill Kumari Other Start: 12-07-2010 End: 05-23-2016 Insertion of intrauterine contraceptive device Bill Kumari Other Mammography [employer] Other SARS Antigen (LFIA) DO Keaton ortega [employer] Phone: Screening for malign ant neoplasm of breast [employer] Other Plan of Treatment Date Care Activity Detail Author Start: 04-09-2025 End: 04-09-2025 Patient encounter procedure 04/09/2025 1:00 PM EDT Office Visit [facility] [address] [place] [id number] Emily Saleh [employer] SCHO[employer] REGISTRAR-AGRONOMY SUPERVISOR [address] [place] [address] [facility] Start: 07-12-2024 Screening for malign ant neoplasm of breast Mammogram [facility] Start: 06-17-2024 End: 06-17-2024 Patient encounter procedure 06/17/2024 9:30 AM EST Office Visit [facility] [address] [place] [address] Jean Osman, DO [address] [place] [address] [facility] Start: 02-10-2024 Influenza vaccination Influenza Vacc ine (#1) [facility] Start: 03-06-2022 [facility] Work Phone: Start: 2001 Screening for malign ant neoplasm of cervix [facility] Start: 1992 Screening for malign ant neoplasm of cervix Pap Smear [facility] Start: 1971 Screening for malign ant neoplasm of colon [facility] Immunizations Immunization Date Immunization Notes Care Provider Fa cili 04-24-2023 influenza virus vaccine, unspecified formulation Emily Saleh [employer] S[employer] REGISTRAR-AGRONOMY SUPERVISOR Work Phone: [facility] 09-30-2020 COVID-19 Vaccine Pfi zer - Documentation Purposes Only Bill Kumari Other [facility] 09-09-2020 COVID-19 Vaccine Pfi zer - Documentation Purposes Only Bill Kumari Other [facility] Payers Date Payer Category Payer Self-pay [id number] 2021 Private Health Insurance [employer] [id number] 1970 Unknown [id number]. 593 1971 Unknown [id number]. 593 1971 Unknown [id number]. 593 1971 Unknown [id number]. 593 1971 Unknown [id number]. 593 1971 Unknown [id number] [id number]. 1259 1971 Unknown [id number] [id number]. 1259 1971 Unknown [id number]. 1259 1959 Unknown [id number] Unknown [id number] 531 Social History Date Type Detail Facility Tobacco smoking stat [facility] Unknown if ever smoked [facility] Work Phone: Start: 1970 Sex Assigned At Female F [facility] Start: 03-06-2022 End: 03-19-2023 Tobacco smoking status KYIS Never smoked tobacco (finding) [facility] Start: 04-08-2024 Sex Assigned At N [facility] [employer] Other Start: 04-08-2024 Alcoholic beverage intake Current drinker of alcohol (finding) [facility] Start: 04-08-2024 History of Social function [facility] Start: 03-19-2023 Alcohol Comment 1 or 2 drinks on a typical day/monthly or less [facility] Start: 1970 Sex assigned at Not on file [facility] Goals Date Patient Goal Desired Activity /State Clinical Notes 03-06-2022 to 04-08-2024 Emily Saleh, [employer] SCHO[employer] REGISTRAR-AGRONOMY SUPERVISOR - 04/08/2024 1:05 PM EDT Note Date & Type Note Facility 04-08-2024 History of Presen t illness Narrative Skin Check Location: Patient requests a full body skin examination Dermatologic history: no history of skin cancer, no history of atypical moles, family history of melanoma Dad -passed from MM and Mom had MM Last visit: 1 year ago skin check, 08/30/23-LN2 on ISK Established patient Follow up Diagnosis: ISK Location: left and right inguinal Last visit: 7 months ago Symptoms: clear Status: improved Procedure performed: Cryotherapy Date of procedure: 08/30/2023 Number of treatments to date: 2 Current treatment: here for follow up Hair Loss Location: scalp Duration: months Severity: localized Associated factors: denies recent stressful event , denies pulling hair , denies rash on scalp Treatments used: Biotin just started Established patient All pertinent medical history, medications, and allergies were reviewed. General Exam: alert, oriented to person, place, and time, normal affect, well appearing Unaccompanied Scalp, Examined , exam limited by hair Right leg Examined Head, Face Examined Left leg Examined Neck Examined Right foot Examined Chest Examined Left foot Examined Back Examined Buttocks Examined Abdomen Examined Digits,nails: Examined Right arm Examined Patient wearing nail japanese, Denies dark streaks under finger nails, Denies dark streaks on toenails Left arm Examined Lymphatics: Not examined Hands Examined 1. Melanocytic nevus of trunk Scattered benign appearing, regular brown to light brown melanocytic papules and macules with similar morphology Counseled regarding these benign growths. Rarely, a nevus can develop into malignant melanoma, so any changing nevi should be promptly re-evaluated. 2. Seborrheic keratosis Stuck on verrucous, variably pigmented papules and plaques. Patient was counseled regarding these benign growths. Removal is normally not necessary, but they may be removed if they are symptomatic or for cosmetic reasons. 3. Lentigines Scattered goodrich macules in sun-exposed areas. The patient was informed that lentigines are benign pigmented lesions that occur on sun-exposed and sun-damaged skin. No treatment is necessary. Recommended regular use of broad spectrum sunscreen SPF 30 or higher 4. Capillary angioma Scattered banda-red papule(s). The patient was informed that angiomas are benign growths on the the skin. No treatment is necessary. 5. Androgenic alopecia Scalp Frontal scalp thinning with intact frontal hairline and miniaturization Patient was counseled that this condition is chronic and can be controlled, but not cured. Discussed treatment options including topical minoxidil, oral prescriptions, or supplements. Recommend patient start topical minoxidil daily at bedtime. Can purchase generic men's strength liquid, apply to affected areas at bedtime, rinse off in morning if desired. Start Ketoconazole shampoo 2% use 2-3 times a week, leave on 5-10 minutes before rinsing. Discussed it can take up to 3-6 months to see improvement. Call in 6 months if no improvement with treatment. ketoconazole (NIZOral) 2 % shampoo - Scalp Lather on scalp 2-3 times weekly, leave on 5-10 min before rinsing Next Visit: 1 year skin check documented in this encounter [facility] 03-12-2023 Evaluation note Encounter Date Diagnosis Assessment Notes Mar, Acute recurrent maxillary sinusitis (ICD-10 - J01.01) Instructed to use Robitussin or Mucinex for cough, saline or Flonase NS for congestion, Tylenol for pain and fever. Mar, Seasonal allergic rhinitis due to pollen (ICD-10 - J30.1) Continue treatment until acosta [employer] Other 08-16-2023 Evaluation note* Encounter Date Diagnosis Assessment Notes Treatment Notes Treatment Clinical Notes Jan, Acute non-recurrent maxillary sinusitis (ICD-10 - J01.00) Instructed to use Robitussin or Mucinex for cough, saline or Flonase NS for congestion, Tylenol for pain and fever. [employer] Other 02-20-2023 Evaluation note* Encounter Date Diagnosis Assessment Notes Treatment Notes Treatment Clinical Notes Jul, Acute non-recurrent maxillary sinusitis (ICD-10 - J01.00) Jul, Anaphylaxis, sequela (ICD-10 - T78.2XXS) [employer] Other 02-09-2023 Evaluation note* Encounter Date Diagnosis Assessment Notes Treatment Notes Treatment Clinical Notes Jul, Acute non-recurrent maxillary sinusitis (ICD-10 - J01.00) [employer] Other 02-06-2023 Evaluation note* Encounter Date Diagnosis Assessment Notes Treatment Notes Treatment Clinical Notes Jul, Acute non-recurrent maxillary sinusitis (ICD-10 - J01.00) Instructed to use Robitussin or Mucinex for cough, saline or Flonase NS for congestion, Tylenol for pain and fever. [employer] Other 01-04-2023 Evaluation note* Encounter Date Diagnosis Assessment Notes Treatment Notes Treatment Clinical Notes Jun, Acute non-recurrent maxillary sinusitis (ICD-10 - J01.00) Instructed to use Robitussin or Mucinex for cough, saline or Flonase NS for congestion, Tylenol for pain and fever. [employer] Other 09-26-2022 [facility]Evaluation noteNo assessment information availableLima [facility] Work Phone: Evaluation noteNo InformationNort [employer] Other Evaluation note* Diagnosis Onset Date Resolution Status Allergic rhinitis acute Acute sinusitis noneactive [facility] Work Phone: Evaluation note* Diagnosis Melanocytic nevus of trunk Benign neoplasm of skin of trunk, except scrotum Seborrheic keratosis Lentigines Capillary angioma Nevus, non-neoplastic Androgenic alopecia Other alopecia documented in this encounter [facility] note Author Barry Machado [facility] March 06, 2022 8:44am Note Date/Time March 06, 2022 8:44am [facility] [address] [place] [address] Gastroenterology H&P Signed Patient: Leigh Vallecillo MR#: [id number] : 1970 Acct:[id number] Age/Sex: 51 / F Adm Date: 2 Loc: Room: Type: [facility] Attending Dr: Barry Machado MD Copies to: DO Barry eHrcules MD~ Date of Service: 03/06/2022 HISTORY & [...] <Electronically signed by Barry Machado MD> 03/06/22843 [facility] Work Phone: History general Narrative - Reported* Type Description Date Surgical History tonsillectomy and adenoidectomy Surgical History ablasion [employer] Other Summary Purpose Family History No Family History Records Found Relationship Condition Age at Onset Recorded Date/T honorio father Malignant melanoma Unknown Not Specified Malignant melanoma Unknown Relationship Condition Age at Onset Recorded Date/T honorio father Malignant melanoma Unknown Not Specified Malignant melanoma Unknown father Unknown Advance Directives No Advanced Directives Records Found Advance Directive Response Recorded Date/ Time Advance Directives No June 26, 2017 3:48pm Advance Directive Response Recorded Date/ Time Advance Directives No June 26, 2017 2:48pm Chief Complaint and Reason for Visit Chief Complaint Abnormal Mammogram Chief Complaint Screening Screening Chief Complaint z780 screen Chief Complaint z780 screen sinus infection Reason for Visit Allergic rhinitis Acute sinusitis Additional Source Comments INFORMATION SOURCE (unrecogn ized section and content) DATE CREATED AUTHOR [facility] DATE CREATED AUTHOR AUTHOR'S ORGANIZ ATION 02/18/2022 [facility] DATE CREATED AUTHOR AUTHOR'S ORGANIZ ATION 04/06/2022 [facility] DATE CREATED AUTHOR AUTHOR'S ORGANIZ ATION 07/20/2023 [facility] DATE CREATED AUTHOR AUTHOR'S ORGANIZ ATION 04/09/2024 [facility] [employer] Care Teams (unrecognized sec tion and content) Team Status: Inactive Member Role Status Dates Bill Kumari DO Primary Care Provider Active Jean Osman Attending Provider Active Team Status: Active Member Role Status Dates Bill Kumari DO Primary Care Provider Active Team Status: Inactive Member Role Status Dates Bill Kumari DO Primary Care Provider Active Barry Machado MD Attending Provider Active Team Status: Inactive Member Role Status Dates Bill Kumari DO Primary Care Provider Active Start: July 10, 2023 End: July 10, 2023 Referral Self Attending Provider Active Start: Arleen hodge 2023 End: July 10, 2023 Team Status: Inactive Member Role Status Dates Bill Kumari DO Primary Care Provide r, Attending Provider Active Start: October 05, 2023 End: October 05, 2023 Sole Cutter Relationship Specialty Start Date End Date Emily Saleh, [employer] REG[employer]AR[employer] SUPERVISOR [address] [place] [id number] PCP - [facility] [employer] 09/09/14 06/10/99 Goals (unrecognized section and content) Goals may be documented in a n alternate sectionNo InformationNo InformationNo InformationNo InformationNo InformationNo InformationNo InformationGoals may be documented in an alternate sectionNo InformationGoals may be documented in an alternate section REASON FOR VISIT (unrecogniz ed section and content) Reason Comments Skin Check FOR RECORDS PERTAINING TO PATIENTS WHO ARE [...] BE BASED ON THE PRIMARY CLINICAL RECORDS. [facility]. provides no warranty or guarantee of the accuracy or completeness of information in this document.
[2024-05-02 09:16] LABS: Basophils Percent Auto 0.5 % (0.2-2.0); Eosinophils Absolute Auto 0.3 10^3/uL (0.0-0.7); Eosinophils Percent Auto 3.9 % (0.9-7.0); Hematocrit 40.2 % (36.0-48.0); Hemoglobin 13.6 g/dL (12.0-16.0); Immature Granulocytes Abs Auto 0.02 10^3/uL (0.00-0.03); Immature Granulocytes Pct Auto 0.3 % (0.0-0.5); Lymphocytes Absolute Auto 1.9 10^3/uL (1.2-3.8); Lymphocytes Percent Auto 23.8 % (20.5-60.0); Mean Corpuscular HGB Conc 33.8 g/dL (29.9-35.2); Mean Corpuscular Volume 85.7 fL (81.0-99.0); Mean Platelet Volume 10.8 fL (9.5-13.5); Monocytes Absolute Auto 0.6 10^3/uL (0.3-0.8); Monocytes Percent Auto 7.6 % (1.7-12.0); Neutrophils Absolute Auto 5.1 10^3/uL (1.4-6.5); Neutrophils Percent Auto 63.9 % (43.0-75.0); Platelet Count 249 10^3/uL (150-450); Red Blood Count 4.69 10^6/uL (4.20-5.40); White Blood Count 7.9 10^3/uL (4.0-11.0)
[2024-05-02 09:39] LABS: Thyroid Stimulating Hormone 2.377 uIU/mL (0.358-3.740)
[2024-05-02 09:42] LABS: Percent Iron Saturation 23.3 %
[2024-05-02 09:59] LABS: Free T4 0.81 ng/dL (0.76-1.46)
[2024-05-03 04:07] LABS: Triiodothyronine (T3) 125 ng/dL (71-180)
[2024-05-05 11:08] LABS: Antinuclear Antibodies, IFA Positive (.)
== END 2024-05-02 08:39 | disposition home or self-care (01) ==
LOC: LAB 08:43
PROVIDERS: PCP Internal Medicine; Visit Provider Internal Medicine
DX: R53.83 Other fatigue (principal); L65.9 Nonscarring hair loss, unspecified
CPT/HCPCS: 36415; 82728; 83540; 83550; 84439; 84443; 84480; 85025; 86038

== ENCOUNTER 2024-06-17 19:28 | Outpatient (REF) | payer OTHER, SELFPAY ==
[2024-06-20 16:12] LABS: Age Gdln ACOG Testing Note (.); HPV Aptima Negative (Negative); IGP, Aptima HPV, rfx 16/18,45 Note (.)
== END 2024-06-17 19:29 | disposition home or self-care (01) ==
LOC: LAB 19:28
PROVIDERS: PCP Internal Medicine; Visit Provider Obstetrics & Gynecology
DX: Z01.419 Encounter for gynecological examination (general) (routine) without abnormal findings (principal)
CPT/HCPCS: 88175

== ENCOUNTER 2025-04-25 11:21 | Outpatient (OUT) | payer OTHER, SELFPAY ==
--- OUTSIDE RECORDS SUMMARY | 2025-04-25 11:24 | XMS_ITS | CCD ---
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 [employer] Name Role Phone DO Bill Viveros Primary Care Provider Cyrus Osman Attending Provider DO Bill Viveros Primary Care Provider MD Barry Machado Attending Provider FELICE, DR BERNABE Primary Care Unavailable BALL, DR BERNABE Admitting Unavailable BALL, DR BERNABE Attending Unavailable BALL, DR BERNABE Consulting Unavailable BALL, DR BERNABE Primary Care Unavailable BALL, DR BERNABE Admitting Unavailable BALL, DR BERNABE Attending Unavailable BALL, DR BERNABE Consulting Unavailable BROWN, PEREZ Consulting Unavailable JACQUI, DR PENA Attending Unavailable JACQUI, DR PENA Consulting Unavailable BALL, DR BERNABE Primary Care Unavailable JACQUI, DR PENA Admitting Unavailable BALL, DR BERNABE Primary Care Unavailable BALL, DR BERNABE Admitting Unavailable BALL, DR BERNABE Attending Unavailable BALL, DR BERNABE Consulting Unavailable WEST, DR TODD V Consulting Unavailable BALL, DR BERNABE Primary Care Unavailable BALL, DR BERNABE Admitting Unavailable BALL, DR BERNABE Attending Unavailable BALL, DR BERNABE Consulting Unavailable Felice, Bill Unavailable DO Bill Viveros Primary Care Provider Self, Referral Attending Provider Unavailable DO Bill Viveros Primary Care Provider Self, Referral Attending Provider Unavailable Delfino MINOR-JORGE, Alvaro Cui Unavailable Bill Viveros DO Primary Care Provider Aristeo Marshall MD Attending Provider Bill Viveros DO Primary Care Provider Aristeo Marshall MD Attending Provider Cyrus Osman DO Attending Provider Ball DO, Bill Attending Provider [phone] Ball DO, Bill Primary Care Provider Ly DO, Nicolasa Franco Attending Provider [phone] Ball DO, Bill Primary Care Provider Ball DO, Bill Attending Provider Ly DO, Nicolasa Franco Other Provider Jacqui DO, Cyrus Attending Provider [phone] Ball DO, Bill Primary Care Provider Ball DO, Bill Attending Provider Murray Vilchis MD Attending Provider Ball, Bill Primary Care Unavailable Jacqui, Cyrus Admitting Unavailable Jacqui, Cyrus Attending Unavailable Ball, Bill Attending Unavailable Ball, Bill Admitting Unavailable Ball, Bill Primary Care Unavailable Jacqui, Cyrus Admitting Unavailable Jacqui, Cyrus Attending Unavailable Ball, Bill Primary Care Unavailable Surfbreezy, Murray Admitting Unavailable Surfield, Murray Attending Unavailable Ball, Bill Primary Care Unavailable Haladay, Aristeo Admitting Unavailable Haladay, Aristeo Attending Unavailable Ly, Nicolasa L Admitting Unavailable Ly, Nicolasa Franco Attending Unavailable Ball, Bill Primary Care Unavailable Unavailable Primary Care Provider UnavailALVARO Colmenares Attending Unavailable JACQUI, CYRUS Attending Unavailable Allergies Allergy ClassificationReported Allergen(s)Allergy TypeDate of OnsetReaction(s) Facility (4 sources)PenicillinDrug Viauuut36-05-9416GNUBJDVAOKLtv [facility] (13 sources)Penicillin GDrug Vtbtwfc74-05-5498Tkqvqcz, Unknown ReactionRegency Hospital [facility] (3 sources)Substance with penicillin structure and antibacterial mechanism of action (substance)Drug abxcril93-56-7639YsfubpcRnreyLendLayer Other (3 sources)Bee StingDrug -05-1197LwtzcchTuvaoLendLayer Other (3 sources)patient allergy list reviewed by nurse or physiciaPropensity to adverse ecotmqeiw33-25-4695Rizqfwv:[employer] Other (3 sources)Allergies ReconciledPropensity to adverse reactionsLendLayer Other (20 sources)Penicillins; Translations: [Penicillins]Allergy to substance 11-29-8612UjfzrSiufneuetRegency Hospital ToledoComment on above:Onset Date: 11/26/2019 (10 sources)bee venom protein (honey bee); Translations: [bee venom protein (honey bee)]Allergy to slmzvsifs67-91-4244Weorodj ReactionRegency Hospital ToledoComment on above:Onset Date: 11/26/2019 (1 source)PenicillinDrug Hacjjoj02-47-4567EhqpkewxrRegency Hospital [place] Repository Medications Current Medications MedicationDrug Class(es)DatesSig (Normalized)Sig (Original)plenvu 140 gm solution reconstituted (8 sources)Osmotic Laxative, Vitamin CStart: 76-49-6843Ffammm 140 GM dose 1 pouch at 4pm, dose 2 pouch A & B at 11pm Orally twice a day for 1 days BIN: [id number] PCN: [id number] GROUP:[id number] ID:[id number] Jan, Active ciprofloxacin 500 mg oral tablet (1 source)Quinolone AntimicrobialStart: 34-05-9448qpmk 1 tablet by mouth twice dailydoxycycline hyclate 100 mg oral capsule (8 sources)Tetracycline-class DrugStart: 14-29-4124zyly 1 capsule by mouth every twelve hoursDoxycycline Hyclate 100 MG 1 capsule Orally Twice a day for 14 days Jul, Geotwupor277398 0.3 ml EPINEPHrine 1 mg/ml auto-injector (20 sources)alpha-Adrenergic Agonist, beta-Adrenergic Agonist, Catecholamine Start: 28-16-5258Taipz: 2024 End: 10-97-8043Oujuwxyntfu 0.3 mg/0.3 mL auto-injector Discontinued 0.3 ML IM Once as needed for anaphylaxis 2024 11:00am December 14, 2024 7:43amStart: 05-19-2024 End: 13-98-2460Ikbezotoich 0.3 mg/0.3 mL auto-injector Discontinued 0.3 MG IM Once as needed May 19, 2024 1:00am 2024 11:00am allergic reactionStart: 51-33-8446DtgDpz 2-Lew 0.3 MG/0.3ML as directed Injection Once as needed for allergic reaction for 30 days 2022 ActiveEPINEPHrine (Epipen) 0.3 MG/0.3ML injection syringe USE DIRECTED FOR ALLERGIC REACTION Active estrogens, conjugated (residential) 0.3 mg / medroxyPROGESTERone acetate 1.5 mg oral tablet (11 sources)Progestin, EstrogenStart: 06-17-2024 End: 83-80-7207ilax 0.3-1.5 mg by mouth once dailyestrogen, conjugated,- medroxyPROGESTERone (Prempro) 0.3-1.5 MG tablet Indications: Postmenopausal st ate Take 1 tablet by mouth Daily 30 tablet 11 06/17/2024 06/17/2025 Active ketoconazole 20 mg/ml medicated shampoo (10 sources)Azole AntifungalStart: 04-08-2024 End: 56-74-0346aowjduetkmzd (NIZOral) 2 % shampoo 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, leave on 5-10 min before rinsing 118 mL 11 04/08/2024 04/09/2025 Discontinued (Ineffective)levoFLOXacin 500 mg oral tablet (8 sources)Quinolone AntimicrobialStart: 54-24-6441oqgm 1 tablet by mouth every twenty-four hourslevoFLOXacin 500 MG 1 tablet Orally Once a day for 10 days Jul, Activeomeprazole 40 mg delayed release oral capsule (19 sources)Proton Pump InhibitorStart: 60-47-8485czhg 1 capsule by mouth once dailyStart: 11-06-2024 End: 29-61-1814evmn 1 capsule by mouth once daily at breakfastOmeprazole 40 mg capsule,delayed release(DR/EC) Discontinued 0 .ROUTE .COMPLEX November 06, 2024 7:23am November 06, 2024 9:42am TAKE 1 CAPSULE BY MOUTH ONCE A DAY ON AN EMPTY STOMACH 30 MINUTES PRIOR TO BREAKFASTStart: 09-10-2024 End: 04-48-8456nsnt 1 capsule by mouth once dailyOmeprazole 20 mg capsule,delayed release(DR/EC) Discontinued 20 MG PO Daily September 10, 2024 12:00amApril 2024 9:12pmStart: 09-10-2024 End: 34-42-5883Basuzxfutb 40 mg capsule,delayed release(DR/EC) Discontinued 40 MG PO Daily September 10, 2024 12:00am November 06, 2024 7:23am take on an empty stomach, 30 minutes prior to bkfstspironolactone 50 mg oral tablet (1 source)Aldosterone AntagonistStart: 67-80-9329abpe 1 tablet by mouth once dailyspironolactone (Aldactone) 50 MG tablet Indications: Androgenic alopecia Take 1 tablet, by mouth, once daily, 30 days 30 tablet 6 04/09/2025 ActiveStart: 08-67-2265tkzr 1 tablet by mouth once dailyspironolactone (Aldactone) 50 MG tablet Indications: Androgenic alopecia Take 1 tablet, by mouth, once daily, 30 days 30 tablet 6 04/09/2025 Activesucralfate 1000 mg oral tablet (3 sources)Aluminum ComplexStart: 84-52-6354ktzr 1 tablet by mouth twice daily Completed/Discontinued Medications MedicationDrug Class(es)DatesSig (Normalized)Sig (Original)azithromycin 250 mg oral tablet (20 sources)Macrolide AntimicrobialStart: 05-19-2024 End: 40-82-5765Uzgctdmdhztt 250 mg tablet Discontinued 250 MG PO .COMPLEX 6 May 19, 2024 1:00am September 3:22pm 2 tabs on first day followed by 1 tab on days 2-5Start: 10-05-2023 End: 97-16-0383Wrumpghozeuc 250 mg tablet Discontinued 250 MG PO As Directed 6 October 05, 2023 12:00am 2023 4:02pmStart: 17-73-9847Lcqwsnvhusng 250 MG as directed Orally daily for 5 days Jan, Activecetirizine hydrochloride 10 mg oral capsule (10 sources)Histamine-1 Receptor AntagonistStart: 05-19-2024 End: 92-17-7447zbuk 1 capsule by mouth once daily as neededCetirizine (Zyrtec) 10 mg capsule Discontinued 10 MG PO Daily as needed May 19, 2024 1:00am Khan 2023 4:06pmStart: 09-80-0174uvjh 1 tablet by mouth every twenty-four hoursZyrTEC Allergy 10 MG 1 tablet Orally Once a day for 30 days Mar, Activefluticasone propionate 0.05 mg/actuat metered dose nasal spray (10 sources)CorticosteroidStart: 05-19-2024 End: 23-22-3819Kbqyvsfyvbf Propionate (Flonase Allergy Relief) 50 mcg/actuation spray,suspension Discontinued 1 SPRAY INTRANASAL Daily May 19, 2024 1:00am May 19, 2024 4:07pmStart: 90-89-2128mevs 1 spray(s) nasal route once daily Flonase Allergy Relief 50 MCG/ACT 1 spray in each nostril Nasally Once a day for 30 days Mar, ActiveStart: 72-20-8024dofw 1 spray(s) nasal route once dailyFlonase Allergy Relief 50 MCG/ACT 1 spray in each nostril Nasally Once a day for 30 days Mar, ActivepredniSONE 20 mg oral tablet (16 sources)Start: 01-22-2024 End: 26-80-1715Xalvlvkbcf 20 mg tablet Discontinued 20 MG PO As Directed February 04, 2024 6:02pm May 4:02pm 1 tab tid w/ food x 3 days, then bid w/ food x 3 days, then qd w/ food x 3 days Problems Active Problems Problem ClassificationProblemDateDocumented DateEpisodic/ChronicAcute bronchitis (3 sources)Acute bronchitis; Translations: [Acute bronchitis due to other specified organisms]EpisodicAllergic reactions (9 sources)Anaphylactic shock, unspecified, initial encounter; Translations: [Idiopathic urticaria]Onset: 72-35-0192WqjmqiybRsvctb (9 sources)Mild intermittent asthma; Translations: [Mild intermittent asthma, uncomplicated]Onset: 45-49-6299LuqrhktZpjbgv of cervix (6 sources)Atypical squamous cells of undetermined significance on cervical Papanicolaou smear; Translations: [Atypical squamous cells of undetermined significance on cytologic smear of cervix (ASC-US)]EpisodicCardiac dysrhythmias (3 sources)Palpitations; Translations: [Palpitations]EpisodicDeficiency and other anemia (3 sources)Anemia; Translations: [Anemia, unspecified]EpisodicEsophageal disorders (9 sources)Gastroesophageal reflux disease; Translations: [Gastro-esophageal reflux disease without esophagitis]Onset: 099503-57-1555Itcagbv Genitourinary symptoms and ill-defined conditions (3 sources)Female stress incontinence; Translations: [Female stress incontinence]Onset: 34-97-6862KqlinczNkwmjgpjyuztf symptoms and ill-defined conditions (10 sources)Dysuria; Translations: [Genitourinary symptoms]Onset: 09-30-2021 EpisodicImmunizations and screening for infectious disease (10 sources)Encounter for screening for human papillomavirus (HPV); Translations: [Anti-nuclear factor positive]Onset: 861283-92-9955Xtojtpcw Intestinal infection (5 sources)Infectious colitis, enteritis and gastroenteritis; Translations: [Infectious gastroenteritis and colitis, unspecified]16-06-4800WdqssavuEelbmua (3 sources)Candidiasis; Translations: [Candidiasis, unspecified]Episodic Neoplasms of unspecified nature or uncertain behavior (1 source)Neoplasm of unspecified behavior of bone, soft tissue, and skin; Translations: [Neoplasm of unspecified behavior of bone, soft tissue, and skin] Onset: 84-55-1598XeadrdhdFijabynxebjq breast conditions (3 sources)Fibrocystic disease of breast; Translations: [Diffuse cystic mastopathy of unspecified breast]ChronicNonmalignant breast conditions (20 sources)Cyst of breast; Translations: [Solitary cyst of left breast]Onset: 12-04-2024 Resolved: 503806-96-9995OomdddldWjfmb aftercare (2 sources)Patient encounter status; Translations: [Other jail (current) drug therapy]84-43-8889GaclqbewBnmdq aftercare (1 source)Taking high risk medication; Translations: [Other mold carrier (current) drug therapy]03-65-3145NkmxubpnTjsgg and unspecified benign neoplasm (3 sources)Melanocytic nevus of trunk; Translations: [Melanocytic nevi of trunk] 33-92-7832UlktkyxrXfwrg circulatory disease (2 sources)Spider nevus; Translations: [Nevus, non-neoplastic]17-05-5315Efnvqobq Other connective tissue disease (4 sources)Mass of thoracic structure; Translations: [Other specified soft tissue disorders]43-76-5415VifilyqdThtfsxk on above:adipose tissueOther female genital disorders (3 sources)Disorder of female genital system; Translations: [Personal history of other diseases of the female genital tract]EpisodicOther injuries and conditions due to external causes (1 source)Anaphylactic shock, unspecified, sequelaEpisodicOther lower respiratory disease (6 sources)Dyspnea; Translations: [Shortness of breath] Resolved: 38-10-2150DigbbxrwAvkxl nervous system disorders (3 sources)Neuralgic amyotrophy; 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 Other non-traumatic joint disorders (3 sources)Shoulder joint pain; Translations: [Pain in right shoulder]Episodic Other skin disorders (3 sources)Seborrheic keratosis; Translations: [Other seborrheic keratosis] 25-42-8601UdnyhwgeMvrye skin disorders (3 sources)Lentiginosis; Translations: [Other melanin hyperpigmentation] 33-77-0712IesktdyoRkyud skin disorders (3 sources)Male pattern alopecia; 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, unspecified]04-81-7409OotpzhpkZgwjf skin disorders (1 source)Inflamed seborrheic keratosis; Translations: [Inflamed seborrheic keratosis]73-20-8593EbvvtbukSxpeo upper respiratory disease (3 sources)Seasonal allergic rhinitis; Translations: [Other seasonal allergic rhinitis]ChronicOther upper respiratory disease (2 sources)Allergic rhinitis due to pollen; Translations: [Allergic rhinitis due to pollen]ChronicOther upper respiratory disease (1 source)Allergic rhinitis due to pollenChronicOther upper respiratory disease (9 sources)Allergic rhinitis; Translations: [Allergic rhinitis, unspecified] 55-72-5535ElncrekJpxcd upper respiratory disease (1 source)Allergic rhinitis, unspecified; Translations: [Allergic rhinitis, cause unspecified]06-79-4451QfokqjnAbksb upper respiratory infections (20 sources)Acute maxillary sinusitis, unspecified; Translations: [Acute upper respiratory infection]EpisodicResidual codes; unclassified (3 sources)Preventive procedure; Translations: [Encounter for other specified prophylactic measures]EpisodicResidual codes; unclassified (2 sources)Postmenopausal state; Translations: [Asymptomatic menopausal state] 58-03-5052QkrozbwmTzgzuwi and strains (6 sources)Strain of neck muscle; Translations: [Strain of muscle, fascia and tendon at neck level, subsequentencounter]EpisodicSystemic lupus erythematosus and connective tissue disorders (6 sources)Keratoconjunctivitis sicca, in Sjogren's syndrome; Translations: [Sicca syndrome with keratoconjunctivitis]01-37-8201ZhhccgkWqincyckwrvo (3 sources)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); Translations: [Post COVID-19 condition, unspecified]Viral infection (6 sources)Infectious mononucleosis; Translations: [Infectious mononucleosis, unspecified without complication]Episodic Past or Other Problems Problem ClassificationProblemDateDocumented DateEpisodic/ChronicAbdominal pain (17 sources)Right upper quadrant pain; Translations: [Right upper quadrant pain] Onset: 08-87-9527EozuigxiDnjwreqsx infection; unspecified site (3 sources)Bacterial infectious disease; Translations: [Bacterial infection, unspecified, in conditions classified elsewhere and of unspecified site]Onset: 12-98-7371ScrqmoaxHnodrelbdcqaa (3 sources)Localized enlarged lymph nodes; Translations: [Localized enlarged lymph nodes]Onset: 35-01-8391NbaqrlgaLroxwhi and fatigue (4 sources)Fatigue; Translations: [Other fatigue]Onset: 07-30-2024 Resolved: 52-57-2994GppwzaibMltzm lower respiratory disease (3 sources)Cough; Translations: [Cough]Onset: 58-80-1247DfckrpxzJafap nutritional; endocrine; and metabolic disorders (3 sources)Overweight; Translations: [Overweight]Onset: 60-89-5586NmdjieopSudol nutritional; endocrine; and metabolic disorders (3 sources)Abnormal weight gain; Translations: [Abnormal weight gain] Resolved: 99-98-3026EnsrnypxJdaal nutritional; endocrine; and metabolic disorders (3 sources)Body mass index 25-29 - overweight; Translations: [Body mass index 26.0-26.9, adult]Onset: 10-67-9177FilmcygmOncnp screening for suspected conditions (not mental disorders or infectious disease) (20 sources)Encounter for screening for malignant neoplasm of cervix; Translations: [Abnormal findings on diagnostic imaging of breast]Onset: 59-94-0435WgmkwepsQywfz skin disorders (3 sources)Alopecia; Translations: [Unspecified alopecia]Onset: 05-05-2015 EpisodicOther skin disorders (9 sources)Localized swelling, mass and lump, right upper limb; Translations: [Mass of right axilla]Onset: 523168-23-8052SnwwyytnNzewuhs on above: adipose tissueUnclassified (3 sources)Exposure to acute respiratory syndrome coronavirus 2; Translations: [Contact with and (suspected) exposure to COVID-19]Unclassified (3 sources)Unspecified lump in the right breast, overlapping quadrants; Translations: [Unspecified lump in theright breast, overlapping quadrants] Urinary tract infections (3 sources)Urinary tract infectious disease; Translations: [Urinary tract infection, site not specified]Onset: 99-78-2727BqbvxfzbPkiic infection (3 sources)Disease caused by 2019-nCoV; Translations: [COVID-19] Results Test NameValueInterpretationReference RangeFacilityCryotherapy, skin lesionon 67-65-6890XTFKEllett Memorial Hospital 01-28-2025L Specimen: [id number] Received: 01/28/25 Status: RIDGE Caceres Num: [id number] Spec Type: Surgical Subm Dr: Murray Vilchis MD Tissues: A Lipoma (RIGHT AXILLARY MASS) Procedures: HE/4, Gross/Micro L3 Age/ Patient Sex Location Account Attending Physician Leigh Vallecillo 54/F [place] [id number] Murray Vilchis MD SPEC NUM: [id number] RECD: 01/28/25 STATUS: RIDGE CACERES NUM: [id number] MARY: 01/28/25- SUBM DR: Murray Vilchis MD ENTERED: 01/28/25-[address]: AMY TYPE: Surgical DEPT: S ENTERED BY: [id number] RECV BY: [id number] ORDERED: HE/4, Gross/Micro L3 ORDERED: HE/4, Gross/Micro L3 Pathological Diagnosis Right axillary mass, excisional biopsy: - Benign breast tissue with fibrocystic changes characterized by duct ectasia, adenosis, cyst formation and stromal fibrosis. - Mature adipose tissue consistent with lipoma. - No evidence of malignancy identified. Clinical Information Mass increasing in size-primary biopsy, D49.2 Neoplasm of unspecified behavior of right axilla. Gross Description Received in formalin labeled with the patients name, date of , and right axillary mass is an ovoid portion of partially encapsulated adipose tissue, 4.5 x 4 x 0.8 cm with detached fragments of rough and ragged adipose tissue, 2.5 x 1 x 1 cm. The capsular surfaces are larios-pink, membranous, smooth and glistening. The capsular surface is inked black. Serial sections reveal yellow-goodrich, glistening, and uniform cut surfaces. Manager Fixed Income sections of the encapsulated specimen are submitted in A1?A3 with factory representative sections of the rough and ragged tissue submitted in A4. Fixation Time: Time specimen extracted: 843 Time specimen placed in formalin: 843 Specimen: [id number] Received: 01/28/25 Status: RIDGE Caceres Num: [id number] Spec Type: Surgical Subm Dr: Murray Vilchis MD Tissues: A Lipoma (RIGHT AXILLARY MASS) Procedures: /, Gross/Micro L3 Patient: Leigh Vallecillo [id number] (Continued) Specimen: [id number] Received: 01/28/25 (Continued) Gross Description (Continued) Signed (signature on file) Dennis Cat MD 01/30/25 1256 Specimen: [id number] Received: 01/28/25 Status: RIDGE Caceres Num: [id number] Spec Type: Surgical Subm Dr: Murray Vilchis MD Tissues: A Lipoma (RIGHT AXILLARY MASS) Procedures: HE/4, Gross/Micro L3 Patient: Leigh Vallecillo [id number] (Continued) Specimen: [id number] Received: 01/28/25 (Continued) Gross Description (Continued) Cold ischemic time: Less than 1 minute Total fixation time: 33 hours (, , K32-7519 A)Arleen Microscopic Description Microscopic examination is performed. CPT Codes 13762 Specimen: [id number] Received: 01/28/25 Status: RIDGE Caceres Num: [id number] Spec Type: Surgical Subm Dr: Murray Vilchis MD Tissues: A Lipoma (RIGHT AXILLARY MASS) Procedures: HE/Liz, Gross/Micro L3 Patient: Leigh Vallecillo [id number] (Continued) Signed (signature on file) Dennis Cat MD 01/30/25 1256Normal [facility] Physician GroupMammography reportOrdered By: Chris Velásquez on 76-46-5122Rddbbrdwth imaging [facility] [address] [place] [address] Mammography Report Signed Patient: Leigh Vallecillo MR#: [id number] : 1970 Acct:[id number] Age/Sex: 54 / F Adm Date: 5 Loc: [place] Room: Type: [facility] Attending Dr: Cyrus Osman DO Ordering Provider: Cyrus Osman Date of Service: 12/04/24 Procedure(s): MM diagnostic mammo LT w/CAD; US breast LT limited Accession Number(s): ([id number]) MM/MM diagnostic mammo LT w/CAD: N63.21 ([id number]) US/US breast LT limited: N63.21 Copies to: DO Cyrus Hercules~ DIAGNOSTIC LEFT BREAST MAMMOGRAM - FULL FIELD DIGITAL WITH TOMOSYNTHESIS CLINICAL DATA: Palpable lump periareolar region of left breast Tomosynthesis Craniocaudal and mediolateral oblique views of the left breast were obtained using low-dose digital technique. Comparison is made to prior studies from 08/20/2024, 07/10/2023, 07/07/2022, 05/12/2021, 05/10/2018, 04/26/2017,and 05/23/2013. This examination was reviewed with the aid of CAD. Dense fibroglandular tissue is noted. Benign-appearing calcifications are present. Similar focal asymmetries are noted throughout the left breast. There are no dominant masses, typically malignant calcifications or architectural distortion. There has been no significant interval change. Limited left breast ultrasound: There is a simple appearing cyst in the left breast at 12:00 position 1 cm from the nipple measuring 4 x 3 x 5 mm in greatest dimension corresponding to the area of palpable abnormalities. There are a few mildly prominent retroareolar ducts without internal debris or mass. MM/MM diagnostic mammo LT w/CAD IMPRESSION: There is a simple appearing cyst in the left breast at 12:00 position 1 cm from the nipple measuring 4 x 3 x 5 mm in greatest dimension corresponding to the area of palpable abnormalities. The patient has a history of multiple previous benign simple cysts. Close clinical correlation is recommended with repeat imaging as symptoms warrant. No evidence of mass, architectural distortion, or atypical calcification to suggest malignancy. RESULT CODE: 2 Benign Findings(s) DENSITY CODE: 2 (approximately 25-50% glandular) There are scattered areas of fibroglandular density. FOLLOW UP: 1YR The false-negative rate of mammography is approximately 10-percent. Management of a palpable abnormality must be based on clinical grounds. Impression dictated by: Chris Velásquez M.D. 12/04/2024 10:19 AM Dictation Location: [facility] Dictated By: Chris Velásquez II, MD 12/04/24 1000 Signed By: 12/04/24 1019 [facility] Work Phone: US breast LT limitedon 07-15-8768CL breast LT limited [facility] [address] [place], [place] [id number] Mammography Report Signed Patient: Leigh Vallecillo MR#: [id number] : 1970 Acct:[id number] Age/Sex: 54 / F Adm Date: 12/04/24 Loc: [place] Room: Type: [facility] Attending Dr: Cyrus Osman DO Ordering Provider: Cyrus Osman Date of Service: 12/04/24 Procedure(s): MM diagnostic mammo LT w/CAD; US breast LT limited Accession Number(s): ([id number]) MM/MM diagnostic mammo LT w/CAD: N63.21 ([id number]) US/US breast LT limited: N63.21 Copies to: DO Cyrus Hercules DIAGNOSTIC LEFT BREAST MAMMOGRAM - FULL FIELD DIGITAL WITH TOMOSYNTHESIS CLINICAL DATA: Palpable lump periareolar region of left breast Tomosynthesis Craniocaudal and mediolateral oblique views of the left breast were obtained using low-dose digital technique. Comparison is made to prior studies from 08/20/2024, 07/10/2023, 07/07/2022, 05/12/2021, 05/10/2018, 04/26/2017, and 05/23/2013. This examination was reviewed with the aid of CAD. Dense fibroglandular tissue is noted. Benign-appearing calcifications are present. Similar focal asymmetries are noted throughout the left breast. There are no dominant masses, typically malignant calcifications or architectural distortion. There has been no significant interval change. Limited left breast ultrasound: There is a simple appearing cyst in the left breast at 12:00 position 1 cm from the nipple measuring 4 x 3 x 5 mm in greatest dimension corresponding to the area of palpable abnormalities. There are a few mildly prominent retroareolar ducts without internal debris or mass. MM/MM diagnostic mammo LT w/CAD IMPRESSION: There is a simple appearing cyst in the left breast at 12:00 position 1 cm from the nipple measuring 4 x 3 x 5 mm in greatest dimension corresponding to the area of palpable abnormalities. The patient has a history of multiple previous benign simple cysts. Close clinical correlation is recommended with repeat imaging as symptoms warrant. No evidence of mass, architectural distortion, or atypical calcification to suggest malignancy. RESULT CODE: 2 Benign Findings(s) DENSITY CODE: 2 (approximately 25-50% glandular) There are scattered areas of fibroglandular density. FOLLOW UP: 1YR The false-negative rate of mammography is approximately 10-percent. Management of a palpable abnormality must be based on clinical grounds. Impression dictated by: Chris Velásquez M.D. 12/04/2024 10:19 AM Dictation Location: DW01 Dictated By: Chris Velásquez II, MD 12/04/24 1000 Signed By: 12/04/[address] [place] [address] [facility]2024L Specimen: [id number] Received: 11/06/24 Status: RIDGE Nicki Num: [id number] Spec Type: Surgical Subm Dr: Nicolasa Molina DO Tissues: A Small Intestine - Biopsy/Polyp (SMALL BOWEL BX) B Gastric Biopsy (GASTRIC BX) Procedures: HE/4, Gross/Micro L4/2, H PYLORI Age/ Patient Sex Location Account Attending Physician [place] 54/F [id number] Nicolasa Molina, DO SPEC NUM: [id number] RECD: 11/06/24 STATUS: RIDGE NICKI NUM: [id number] MARY: 11/06/[address] [facility] [address]: Nicolasa Molina DO ENTERED: 11/06/24 [facility] [address]: AMY TYPE: Surgical DEPT: S ENTERED BY: [id number] RECV BY: [id number] ORDERED: HE/4, Gross/Micro L4/2, H PYLORI ORDERED: HE/4, Gross/Micro L4/2, H PYLORI Pathological Diagnosis A. Small bowel, biopsy: - Small bowel mucosa with no significant histopathology. - No evidence of celiac disease identified B. 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 - No Helicobacter pylori microorganisms identified with immunohistochemical stain. Clinical Information GERD, Part A rule out celiac disease, Part B rule out H. pylori Gross Description Part A is received in formalin labeled with the patients name, date of , and Small bowel BX are two goodrich-larios, focally erythematous, friable, 0.2 and 0.3 cm in greatest dimension tissue bits. The specimen is entirely submitted in a single cassette. (1, ns, [id number] A) JG Part B is received in formalin labeled with the patients name, date of , and gastric BX is a goodrich-larios, focally erythematous, friable, 0.6 cm in greatest dimension tissue strip. The specimen is entirely submitted in a single cassette. (1, ns, [id number] B) JG Specimen: [id number] Received: 11/06/24 Status: RIDGE Caceres Num: [id number] Spec Type: Surgical Subm Dr: Nicolasa Molina DO Tissues: A Small Intestine - Biopsy/Polyp (SMALL BOWEL BX) B Gastric Biopsy (GASTRIC BX) Procedures: HE/4, Gross/Micro L4/2, H PYLORI Patient: Leigh Vallecillo [id number] (Continued) Specimen: [id number] Received: 11/06/24 (Continued) Signed (signature on file) Dennis Cat MD 11/10/24 1415 Specimen: [id number] Received: 11/06/24 Status: RIDGE Caceres Num: [id number] Spec Type: Surgical Subm Dr: Nicolasa Molina DO Tissues: A Small Intestine - Biopsy/Polyp (SMALL BOWEL BX) B Gastric Biopsy (GASTRIC BX) Procedures: HE/4, Gross/Micro L4/2, H PYLORI Patient: Leigh Vallecillo [id number] (Continued) Specimen: [id number] Received: 11/06/24 (Continued) Microscopic Description A B: Microscopic examination is performed. CPT Codes 84062 x2, 45139 Specimen: [id number] Received: 11/06/24 Status: RIDGE Caceres Num: [id number] Spec Type: Surgical Subm Dr: Nicolasa Molina DO Tissues: A Small Intestine - Biopsy/Polyp (SMALL BOWEL BX) B Gastric Biopsy (GASTRIC BX) Procedures: HE/4, Gross/Micro L4/2, H PYLORI Patient: Avel,Leigh Salinas [id number] (Continued) Signed (signature on file) Dennis Cat MD 11/10/24 1415Normal [facility] Physician GroupUS axillaon [id number] [address] Ultrasound Report Signed Patient: Leigh Vallecillo MR#: [id number] 02 : 1970 Acct:[id number] Age/Sex: 54 / F ADM Date: 09/26/24 Loc: [facility] Room: Type: [facility] Attending Dr: Bill Viveros DO Ordering Provider: Bill Viveros DO Date of Service: 09/26/24 US/US axilla: R22.31 - Localized swelling, mass and lump, right upper limb Copies to: Bill Viveros DO CLINICAL DATA: History of Parsonage-Ognzalez syndrome. LIMITED right axillary ULTRASOUND COMPARISON:Mammograms dating back to 2019 FINDINGS: Imaging of the right axilla demonstrates no suspicious mass. Benign-appearing lymph nodes are present. US/US axilla IMPRESSION: NO ULTRASOUND EVIDENCE OF MALIGNANCY. Impression dictated by: Jamil Tong Jr., D.OCindy09/26/2024 8:14 AM Dictation Location: [facility] Tech: Isabel Caban Transcribed By: TY 09/26/24 0814 Dictated By: Jamil Tong Jr, DO 09/26/24 0810 Signed By: 09/26/24 0814[facility] Physician GroupUS gall bladderon 80-23-6634FW gall bladderBRECKSVILLE [facility] / [facility] Main [place] [address] [place] [address] Ultrasound Report Signed Patient: Leigh Vallecillo MR#: [id number] [birth year] : 1970 Acct:[id number] Age/Sex: 54 / F ADM Date: 09/26/24 Loc: [facility] Room: Type: [facility] Attending Dr: Bill Viveros DO Ordering Provider: Bill Viveros DO Date of Service: 09/26/24 US/US gall bladder: R10.11 - Right upper quadrant pain Copies to: Bill Viveros DO LIMITED ABDOMINAL ULTRASOUND: CLINICAL HISTORY: Epigastric pain COMPARISON: None TECHNIQUE: Grayscale and color Doppler images of the right upper quadrant organs were obtained. FINDINGS: Pancreas: Visualized portions appear unremarkable. Liver: Unremarkable. Gallbladder: Unremarkable. CBD: 3.2 mm RT KIDNEY: No Hydronephrosis US/US gall bladder IMPRESSION: NO ACUTE PROCESS. . Impression dictated by: Jamil Tong Jr., D.OCindy09/26/2024 2:01 PM Dictation Location: [place] [address] Tech: Amber Serna Transcribed By: TY 09/26/24 1401 Dictated By: Jamil Tong Jr, DO 09/26/24 1401 Signed By: 09/26/24 1401[facility] Physician GroupMM screening mammo BI w/CADon 46-65-2464GO screening mammo [facility] [address] [place] [address] Mammography Report Signed Patient: Leigh Vallecillo MR#: [id number] 02 : 1970 Acct:[id number] Age/Sex: 54 / F Adm Date: 08/20/24 Loc: [place] Room: Type: [facility] Attending Dr: Cyrus Osman DO Ordering Provider: Cyrus Osman Date of Service: 08/20/24 Procedure(s): MM screening mammo BI w/CAD Accession Number(s): ([id number]) MM/MM screening mammo BI w/CAD: SCREENING Copies to: DO Cyrus Hercules CLINICAL DATA: Screening for malignancy. SCREENING MAMMOGRAM - FULL FIELD DIGITAL WITH TOMOSYNTHESIS AND CAD COMPARISON:Priors dating back to 2020 Tomosynthesis craniocaudal and mediolateral oblique views of both breasts were obtained using low- dose digital technique. This examination was reviewed with the aid of CAD. The breast parenchyma is heterogeneously dense. There are no dominant masses, typically malignant calcifications or architectural distortion. There has been no significant interval change. MM/MM screening mammo BI w/CAD IMPRESSION: NO MAMMOGRAPHIC EVIDENCE OF MALIGNANCY. ROUTINE FOLLOW-UP IS RECOMMENDED IN ONE YEAR. RESULT CODE: 1 Negative DENSITY CODE: 3 (approximately 51-75% glandular) The breasts are heterogeneously dense, which may obscure small masses. FOLLOW UP: 1YR The false-negative rate of mammography is approximately 10-percent. Management of a palpable abnormality must be based on clinical grounds. Patient was entered into a reminder system with a target due date for the next mammogram. Impression dictated by: Broderick Krueger M.D.08/20/2024 4:58 PM Dictation Location: [facility] Dictated By: Broderick Krueger MD 08/20/241655 Signed By: 08/20/24 1658[facility] Physician GroupMammography reportOrdered By: Broderick Krueger on 15-14-8722Guphjcpyue imaging studyHOLZER HOSPITAL [facility] [address] [place] [address] [place] [address] Mammography Report Signed Patient: Leigh Vallecillo MR#: [id number] : 1970 Acct:[id number] Age/Sex: 54 / F Adm Date: 5 Loc: [place] Room: Type: [facility] Attending Dr: Cyrus Osman DO Ordering Provider: Cyrus Osman Date of Service: 08/20/24 Procedure(s): MM screening mammo BI w/CAD Accession Number(s): ([id number]) MM/MM screening mammo BI w/CAD: SCREENING Copies to: Bill Viveros,DO Cyrus Osman~ CLINICAL DATA: Screening for malignancy. SCREENING MAMMOGRAM - FULL FIELD DIGITAL WITH TOMOSYNTHESIS AND CAD COMPARISON:Priors dating back to 2020 Tomosynthesis craniocaudal and mediolateral oblique views of both breasts were obtained using low-dose digital technique. This examination was reviewed with the aid of CAD. The breast parenchyma is heterogeneously dense. There are no dominant masses, typically malignant calcifications or architectural distortion. There has been no significant interval change. MM/MM screening mammo BI w/CAD IMPRESSION: NO MAMMOGRAPHIC EVIDENCE OF MALIGNANCY. ROUTINE FOLLOW-UP IS RECOMMENDED IN ONE YEAR. RESULT CODE: 1 Negative DENSITY CODE: 3 (approximately 51-75% glandular) The breasts are heterogeneouslydense, which may obscure small masses. FOLLOW UP: 1YR The false-negative rate of mammography is approximately 10-percent. Management of a palpable abnormality must be based on clinical grounds. Patient was entered into a reminder system with a target due date for the next mammogram. Impression dictated by: Broderick Krueger M.D.08/20/2024 4:58 PM Dictation Location: [facility] Dictated By: Broderick Krueger MD 08/20/241655 Signed By: 08/20/241657 [facility] Work Phone: Alanine aminotransferase [Enzymatic activity/volume] in Serum or PlasmaOrdered By: Aristeo Marshall on 78-62-0918PZZ [Catalytic activity/Vol]Alanine aminotransferase [Enzymatic activity/volume] in Serum or PlasmaRegency Hospital ToledoAlbumin [Mass/volume] in Serum or Plasma by Bromocresol green (BCG) dye binding methoOrdered By: Aristeo Marshall on 02-53-2803Rytnzer BCG dye [Mass/Vol]Albumin [Mass/volume] in Serum or Plasma by Bromocresol green (BCG) dye binding metho3.5-5.7FAdena Health SystemAlkaline phosphatase [Enzymatic activity/volume] in Serum or PlasmaOrdered By: Aristeo Marshall on 54-55-1408FES [Catalytic activity/Vol]Alkaline phosphatase [Enzymatic activity/volume] in Serum or Ajrusp27-530GkqbtevxuRegency Hospital ToledoAppearance of UrineOrdered By: Aristeo Marshall on 71-83-8847Dhafpruiut (U) Urine appearanceCleToledo HospitalAspartate aminotransferase [Enzymatic activity/volume] in Serum or PlasmaOrdered By: Aristeo Marshall on 47-08-6863VQP [Catalytic activity/Vol]Aspartate aminotransferase [Enzymatic activity/volume] in Serum or Oxnooi66-30AjnblgxsdRegency Hospital Toledo Bacteria [Presence] in Urine by AutomatedOrdered By: Aristeo Marshall on 63-85-3027Shdyhmoz Auto Ql (U)Bacteria [Presence] in Urine by AutomatedNone Seen [facility] ToledoBasophils Auto (Bld) [#/Vol]Ordered By: Aristeo Marshall on 22-50-2954Xsxfohbeg (Bld) [#/Vol]Automated basophil count0.0-0.2 [facility] ToledoBasophils/100 WBC Auto (Bld)Ordered By: Aristeo Marshall on 86-91-0987Alfbwopzb/100 WBC (Bld)Automated basophil %.[facility] Hospital ToledoBilirubin Test strip Ql (U)Ordered By: Aristeo Marshall on 75-48-7107Tqbdsvivk Ql (U)Bilirubin.total [Presence] in Urine by Test strip NegativeRegency Hospital ToledoBilirubin.direct [Mass/volume] in Serum or PlasmaOrdered By: Aristeo Marshall on 77-46-6013Awbjmxttq.direct [Mass/Vol] Bilirubin.direct [Mass/volume] in Serum or Plasma0.03-0.18FAdena Health SystemBilirubin.total [Mass/volume] in Serum or PlasmaOrdered By: Aristeo Marshall on 09-73-9275Dgebcywri [Mass/Vol]Bilirubin.total [Mass/volume] in Serum or Plasma0.3-1.0[facility] Hospital ToledoC reactive protein [Mass/volume] in Serum or PlasmaOrdered By: Aristeo Marshall on 51-32-8585ZAL [Mass/Vol]C reactive protein [Mass/volume] in Serum or PlasmaHigh0.0-0.5 [facility] ToledoC-Reactive Proteinon 46-15-2221S-Reactive Protein1.3 mg/dLHigh0.0-0.5The [facility] Physician GroupComment on above:Result Comment: PERFORMED BY: [place] [address] PATHOLOGIST CORROSION CONTROL SPECIALIST NISH ORELLANA M.D.Performed By: #### CBC, CRP, ADDONUAPLUS, CK, HEPATIC, CREAT, ESR #### [address] #### CH50, C4, C3 #### [facility] ,Color Auto (U)Ordered By: Aristeo Marshall on 49-71-0140Wftug (U)Color of Urine by AutoYelThe MetroHealth SystemComplement C3on 07-30-2024 Complement C3140 mg/kESeluvr16-483Mex [facility] Physician [facility] HospitalComment on above: Result Comment: Performed at: - [facility] [id number] Real Time Trader: Arcenio Garcia PhD, Phone: [phone] By: #### CBC, CRP, ADDONUAPLUS, CK, HEPATIC, CREAT, ESR ####[place] [address] [place] [address] [place]#### CH50, C4, C3 ####[facility] , Complement C4on 79-78-6146Bospwyplhc C447 mg/zSJttl85-53Tuf [facility] Physician [facility] HospitalComment on above:Result Comment: PERFORMED BY: [address] [place] [address] PATHOLOGIST CORROSION CONTROL SPECIALIST NISH ORELLANA M.D.Performed By: #### CBC, CRP, ADDONUAPLUS, CK, HEPATIC, CREAT, ESR ####[address]#### CH50, C4, C3 ####[facility] ,Complement Total (CH50) on 07-92-4057Olnpjvwuwl Total (CH50)59Normal>41The [facility] Comment on above:Result Comment: Age Male Female 1 - 30 days Not Estab. Not Estab. 31 days - 6 months >32 >20 7 months - 17 years >39 >39 >17 years >41 >41 NOTE: The adult ( >17 years ) reference interval range is used to flag abnormals on this report. If the patient is 17 years old or younger, use the table above to determine out of range values. Performed at: - [facility] [id number] Real Time Trader: Arcenio Garcia PhD, Phone: [phone] PERFORMED BY: [place] [address] PATHOLOGIST CORROSION CONTROL SPECIALIST NISH ORELLANA M.D.Performed By: #### CBC, CRP, ADDONUAPLUS, CK, HEPATIC, CREAT, ESR ####[address]#### CH50, C4, C3 ####[facility] ,Complete Blood Count Auto Diffon 61-65-9933Zgeqjcchr (Bld) [#/Vol]0.1 10*3/uLNormal0.0-0.2The [facility] Physician GroupComment on above:Performed By: #### CBC, CRP, ADDONUAPLUS, CK, HEPATIC, CREAT, ESR #### [address] #### CH50, C4, C3 #### [facility] ,Basophils/100 WBC (Bld)0.6 %Normal.The [facility] Physician GroupComment on above:Performed By: #### CBC, CRP, ADDONUAPLUS, CK, HEPATIC, CREAT, ESR #### [address] #### CH50, C4, C3 #### [facility] ,Eosinophils (Bld) [#/Vol]0.5 10*3/uLHigh0.0-0.45The [facility] Comment on above:Performed By: #### CBC, CRP, ADDONUAPLUS, CK, HEPATIC, CREAT, ESR #### [address] #### CH50, C4, C3 #### [facility] ,Eosinophils/100 WBC (Bld)5.2 %Normal.The [facility] Physician GroupComment on above:Performed By: #### CBC, CRP, ADDONUAPLUS, CK, HEPATIC, CREAT, ESR #### [address] #### CH50, C4, C3 #### [facility] ,Erythrocyte distribution width (RBC) [Ratio]14.2 %Pvhsda91.9-15.3The [facility] Physician GroupComment on above:Performed By: #### CBC, CRP, ADDONUAPLUS, CK, HEPATIC, CREAT, ESR #### [address] #### CH50, C4, C3 #### [facility] ,Hematocrit (Bld) [Volume fraction]42.5 %Atzqwh63.0-46.4The [facility] Physician GroupComment on above:Performed By: #### CBC, CRP, ADDONUAPLUS, CK, HEPATIC, CREAT, ESR #### [address] #### CH50, C4, C3 #### [facility] ,Hemoglobin (Bld) [Mass/Vol]14.9 g/kDBclhmf00.8-15.4The [facility] Physician GroupComment on above:Performed By: #### CBC, CRP, ADDONUAPLUS, CK, HEPATIC, CREAT, ESR #### [place] [address] [place] #### CH50, C4, C3 #### [facility] ,Lymphocytes (Bld) [#/Vol]2.2 10*3/uLNormal1.00-4.8The [facility] Comment on above:Performed By: #### CBC, CRP, ADDONUAPLUS, CK, HEPATIC, CREAT, ESR #### [address] #### CH50, C4, C3 #### [facility] ,Lymphocytes/100 WBC (Bld)20.6 %Normal.The [facility] Physician GroupComment on above:Performed By: #### CBC, CRP, ADDONUAPLUS, CK, HEPATIC, CREAT, ESR #### [address] #### CH50, C4, C3 #### [facility] ,MCH (RBC) [Entitic mass]29.1 iaCpvafb73.7-34.3The [facility] Comment on above:Performed By: #### CBC, CRP, ADDONUAPLUS, CK, HEPATIC, CREAT, ESR #### [place] [address] [place] #### CH50, C4, C3 #### [facility] ,MCV (RBC) [Entitic vol]82.7 nJMlohjk35-837Oxp [facility] Physician GroupComment on above:Performed By: #### CBC, CRP, ADDONUAPLUS, CK, HEPATIC, CREAT, ESR #### [address] #### CH50, C4, C3 #### [facility] ,Mean Corpuscular HGB Conc35.1 g/tBLpre83.0-35.0The [facility] Comment on above:Performed By: #### CBC, CRP, ADDONUAPLUS, CK, HEPATIC, CREAT, ESR #### [address] #### CH50, C4, C3 #### [facility] ,Monocytes (Bld) [#/Vol]0.5 10*3/uLNormal0.0-0.8The [facility] Comment on above:Performed By: #### CBC, CRP, ADDONUAPLUS, CK, HEPATIC, CREAT, ESR #### [address] #### CH50, C4, C3 #### [facility] ,Monocytes/100 WBC (Bld)4.4 %Normal.The [facility] Physician GroupComment on above:Performed By: #### CBC, CRP, ADDONUAPLUS, CK, HEPATIC, CREAT, ESR #### [address] #### CH50, C4, C3 #### [facility] ,Neutrophils (Bld) [#/Vol]7.2 10*3/uLNormal1.8-7.7The [facility] Physician [facility] Comment on above:Performed By: #### CBC, CRP, ADDONUAPLUS, CK, HEPATIC, CREAT, ESR #### [place] [address] [place] #### CH50, C4, C3 #### [facility] ,Neutrophils/100 WBC (Bld)69.2 %Normal.The [facility] Physician GroupComment on above:Performed By: #### CBC, CRP, ADDONUAPLUS, CK, HEPATIC, CREAT, ESR #### [place] [address] [place] #### CH50, C4, C3 #### [facility] ,NRBC%0.1 /100{WBC}Normal0-0.5The [facility] Physician GroupComment on above: Performed By: #### CBC, CRP, ADDONUAPLUS, CK, HEPATIC, CREAT, ESR #### [facility] [address] [place] [address] #### CH50, C4, C3 #### [facility] ,Platelet mean volume (Bld) [Entitic vol]9.3 fLNormal6.3-10.7The [facility] Physician GroupComment on above:Performed By: #### CBC, CRP, ADDONUAPLUS, CK, HEPATIC, CREAT, ESR #### [address] #### CH50, C4, C3 #### [facility] ,Platelets (Bld) [#/Vol]283 10*3/zVTvekck181-753Bqe [facility] Comment on above:Performed By: #### CBC, CRP, ADDONUAPLUS, CK, HEPATIC, CREAT, ESR #### [address] #### CH50, C4, C3 #### [facility] ,RBC (Bld) [#/Vol]5.14 10*6/uLHigh3.60-5.00The [facility] Physician GroupComment on above:Performed By: #### CBC, CRP, ADDONUAPLUS, CK, HEPATIC, CREAT, ESR #### [place] [address] [place] #### CH50, C4, C3 #### [facility] ,WBC (Bld) [#/Vol]10.5 10*3/uLNormal3.8-11.6The [facility] Physician GroupComment on above:Performed By: #### CBC, CRP, ADDONUAPLUS, CK, HEPATIC, CREAT, ESR #### [place] [address] [place] #### CH50, C4, C3 #### [facility] ,Creatine Kinaseon 28-88-7085QF [Catalytic activity/Vol]51 U/IOwhgqq34-651N[facility] Physician GroupComment on above:Result Comment: PERFORMED BY: [place] [address] PATHOLOGIST CORROSION CONTROL SPECIALIST NISH ORELLANA M.D.Performed By: #### CBC, CRP, ADDONUAPLUS, CK, HEPATIC, CREAT, ESR #### [facility] [address] [place] [address] [place] #### CH50, C4, C3 #### [facility] ,Creatine kinase [Enzymatic activity/volume] in Serum or PlasmaOrdered By: Aristeo Marshall on 90-37-0594JR [Catalytic activity/Vol]Creatine kinase [Enzymatic activity/volume] in Serum or Cguuwp71-839WxdmmzzwbRegency Hospital ToledoCreatinineon 22-12-3243Aaafsmrybk [Mass/Vol]0.84 mg/dLNormal0.60-1.20The [facility] Physician GroupComment on above:Performed By: #### CBC, CRP, ADDONUAPLUS, CK, HEPATIC, CREAT, ESR #### [place] [address] [place] #### CH50, C4, C3 #### [facility] ,GFR/1.73 sq M.predicted MDRD (S/P/Bld) [Vol rate/Area]mL/min/{1.73_m2}NormalThe [facility] Physician GroupComment on above:Performed By: #### CBC, CRP, ADDONUAPLUS, CK, HEPATIC, CREAT, ESR #### [facility] [address] [place] [address] [place] #### CH50, C4, C3 #### [facility] ,Creatinine [Mass/volume] in Serum or PlasmaOrdered By: Aristeo Marshall on 93-43-6349Rypyzxopdc [Mass/Vol]Creatinine [Mass/volume] in Serum or Plasma 0.60-1.20[facility] Hospital ToledoDipstick and Microscopicon 07-30-2024 Appearance (U)ClearNormalClearThe [facility] Hospitallands Physician GroupComment on above: Order Comment: Name Collection Type:: Clean-Voided MidstreamPerformed By: #### CBC, CRP, ADDONUAPLUS, CK, HEPATIC, CREAT, ESR #### [address] #### CH50, C4, C3 #### [facility] ,Bacteria,UrineNone SeenNormalNone SeenNemours Children'S Clinic Hospital Physician GroupComment on above:Order Comment: Name Collection Type:: Clean-Voided MidstreamPerformed By: #### CBC, CRP, ADDONUAPLUS, CK, HEPATIC, CREAT, ESR #### [address] #### CH50, C4, C3 #### [facility] ,Bilirubin,UrineNegativeNormalNegativeNemours Children'S Clinic Hospital Physician GroupComment on above:Order Comment: Name Collection Type:: Clean-Voided MidstreamPerformed By: #### CBC, CRP, ADDONUAPLUS, CK, HEPATIC, CREAT, ESR #### [address] #### CH50, C4, C3 #### [facility] ,Color (U)ColorlessNormalYellowNemours Children'S Clinic Hospital Physician GroupComment on above: Order Comment: Name Collection Type:: Clean-Voided MidstreamPerformed By: #### CBC, CRP, ADDONUAPLUS, CK, HEPATIC, CREAT, ESR #### [address] #### CH50, C4, C3 #### [facility] ,Glucose Ql (U)NormalNormalNormAdventHealth Ocala Physician GroupComment on above: Order Comment: Name Collection Type:: Clean-Voided MidstreamPerformed By: #### CBC, CRP, ADDONUAPLUS, CK, HEPATIC, CREAT, ESR #### [address] #### CH50, C4, C3 #### [facility] ,Hyaline Casts,UrineNoneNormal0-8The [facility] Physician GroupComment on above: Order Comment: Name Collection Type:: Clean-Voided MidstreamPerformed By: #### CBC, CRP, ADDONUAPLUS, CK, HEPATIC, CREAT, ESR #### [address] #### CH50, C4, C3 #### [facility] ,Ketones Ql (U)NegativeNormalNegativeThe [facility] Physician GroupComment on above:Order Comment: Name Collection Type:: Clean-Voided MidstreamPerformed By: #### CBC, CRP, ADDONUAPLUS, CK, HEPATIC, CREAT, ESR #### [address] #### CH50, C4, C3 #### [facility] ,Leukocyte esterase Test strip Ql (U)NegativeNormalNegativeNemours Children'S [facility] Hospital Physician GroupComment on above:Order Comment: Name Collection Type:: Clean- Voided MidstreamPerformed By: #### CBC, CRP, ADDONUAPLUS, CK, HEPATIC, CREAT, ESR #### [address] #### CH50, C4, C3 #### [facility] ,Mucus,UrineRareNormalThe [facility] Physician GroupComment on above:Order Comment: Name Collection Type:: Clean-Voided MidstreamResult Comment: PERFORMED BY: [place] [address] PATHOLOGIST CORROSION CONTROL SPECIALIST NISH ORELLANA M.D.Performed By: #### CBC, CRP, ADDONUAPLUS, CK, HEPATIC, CREAT, ESR #### [address] #### CH50, C4, C3 #### [facility] ,Nitrite,UrineNegativeNormalNegativeNemours Children'[facility] Hospital Physician GroupComment on above:Order Comment: Name Collection Type:: Clean-Voided MidstreamPerformed By: #### CBC, CRP, ADDONUAPLUS, CK, HEPATIC, CREAT, ESR #### [address] #### CH50, C4, C3 #### [facility] ,Occult Blood,UrineNegativeNormalNegativeThe [facility] Physician GroupComment on above:Order Comment: Name Collection Type:: Clean-Voided MidstreamPerformed By: #### CBC, CRP, ADDONUAPLUS, CK, HEPATIC, CREAT, ESR #### [address] #### CH50, C4, C3 #### [facility] ,pH (U)6.0 [pH]Normal5.0-9.0The [facility] Physician GroupComment on above:Order Comment: Name Collection Type:: Clean-Voided MidstreamPerformed By: #### CBC, CRP, ADDONUAPLUS, CK, HEPATIC, CREAT, ESR #### [address] #### CH50, C4, C3 #### [facility] ,Protein,UrineNegativeNormalNegativeThe [facility] Physician GroupComment on above:Order Comment: Name Collection Type:: Clean-Voided MidstreamPerformed By: #### CBC, CRP, ADDONUAPLUS, CK, HEPATIC, CREAT, ESR #### [address] #### CH50, C4, C3 #### [facility] ,RBC,Titft6-2Jiqapk2-8Gia [facility] Physician GroupComment on above:Order Comment: Name Collection Type:: Clean-Voided MidstreamPerformed By: #### CBC, CRP, ADDONUAPLUS, CK, HEPATIC, CREAT, ESR #### [address] #### CH50, C4, C3 #### [facility] ,Specificy [place],Urine1.393Tzzfuz3.001-1.030The [facility] Comment on above:Order Comment: Name Collection Type:: Clean-Voided Midstream Performed By: #### CBC, CRP, ADDONUAPLUS, CK, HEPATIC, CREAT, ESR #### [address] #### CH50, C4, C3 #### [facility] ,Squamous Epithelial Cell,Crujv5-9Elugwv0-2Kzi [facility] Physician GroupComment on above:Order Comment: Name Collection Type:: Clean-Voided MidstreamPerformed By: #### CBC, CRP, ADDONUAPLUS, CK, HEPATIC, CREAT, ESR #### [address] #### CH50, C4, C3 #### [facility] ,Urobilinogen,UrineNormalNormalNormalThe [facility] Physician GroupComment on above:Order Comment: Name Collection Type:: Clean-Voided MidstreamPerformed By: #### CBC, CRP, ADDONUAPLUS, CK, HEPATIC, CREAT, ESR #### [address] #### CH50, C4, C3 #### [facility] ,WBC,Zuacb6-9Usjbza3-5Ypq [facility] Physician GroupComment on above:Order Comment: Name Collection Type:: Clean-Voided MidstreamPerformed By: #### CBC, CRP, ADDONUAPLUS, CK, HEPATIC, CREAT, ESR #### [facility] [address] [place] [address] [place] #### CH50, C4, C3 #### [facility] ,Eosinophils Auto (Bld) [#/Vol]Ordered By: Aristeo Marshall on 07-30-2024 Eosinophils (Bld) [#/Vol]Automated eosinophil countHigh0.0-0.45[facility] ToledoEosinophils/100 WBC Auto (Bld)Ordered By: Aristeo Marshall on 14-80-1913Fmlgxwuqhsb/100 WBC (Bld)Automated eosinophil %.[facility] Hospital ToledoEpithelial cells.squamous [#/area] in Urine sediment by Automated countOrdered By: Aristeo Marshall on 95-93-7743Arpaohmdfs cells.squamous Auto (Urine sed) [#/Area]Epithelial cells.squamous [#/area] in Urine sediment by Automated count0-2FAdena Health SystemErythrocyte Sedimentation Rateon 06-88-0829IOV (Bld) [Velocity]18 mm/hNormal0The [facility] Physician GroupComment on above:Result Comment: PERFORMED BY: [place] [address] PATHOLOGIST CORROSION CONTROL SPECIALIST NISH ORELLANA M.D.Performed By: #### CBC, CRP, ADDONUAPLUS, CK, HEPATIC, CREAT, ESR #### [place] [address] [place] #### CH50, C4, C3 #### [facility] ,Erythrocyte distribution width Auto (RBC) [Ratio]Ordered By: Aristeo Marshall on 11-76-7335Rulpkusylxd distribution width (RBC) [Ratio]Erythrocyte distribution width [Ratio] by Automated count11.9-15.3FAdena Health System Erythrocyte sedimentation rate by Photometric methodOrdered By: Aristeo Marshall on 01-65-7992VGF Photometric method (Bld) [Velocity]Erythrocyte sedimentation rate by Photometric methodRegency Hospital ToledoErythrocytes [#/area] in Urine sediment by Automated countOrdered By: Aristeo Marshall on 00-96-2758GAO Auto (Urine sed) [#/Area]Erythrocytes [#/area] in Urine sediment by Automated count0-4FAdena Health SystemGlobulin Calc (S) [Mass/Vol]Ordered By: Aristeo Marshall on 30-53-9223Zpugodzm (S) [Mass/Vol]Serum globulin measurement by calculation (mass/volume)[facility] ToledoGlucose [Mass/volume] in Urine by Test stripOrdered By: Aristeo Marshall on 50-65-5046Kruiogr Test strip (U) [Mass/Vol]Glucose [Mass/volume] in Urine by Test stripNormalRegency Hospital ToledoHematocrit Auto (Bld) [Volume fraction]Ordered By: Aristeo Marshall on 44-95-8467Fmvgbzprlt (Bld) [Volume fraction]Hematocrit [Volume Fraction] of Blood by Automated count34.0-46.4 [facility] ToledoHemoglobin Test strip Ql (U)Ordered By: Aristeo Marshall on 80-61-9749Tdrcjruzid Ql (U)Hemoglobin [Presence] in Urine by Test stripNegativeRegency Hospital ToledoHemoglobin [Mass/volume] in Blood Ordered By: Aristeo Marshall on 88-32-8089Gibdsagobs (Bld) [Mass/Vol]Hemoglobin [Mass/volume] in Blood11.8-15.4FAdena Health SystemHepatic Panelon 22-32-1754Prboeju [Mass/Vol]4.5 g/dLNormal3.5-5.7The [facility] Comment on above:Performed By: #### CBC, CRP, ADDONUAPLUS, CK, HEPATIC, CREAT, ESR #### [facility] [address] [place] [address] [place] #### CH50, C4, C3 #### [facility] ,Albumin/Globulin [Mass ratio]1.6 {ratio}NormalThe [facility] Comment on above:Performed By: #### CBC, CRP, ADDONUAPLUS, CK, HEPATIC, CREAT, ESR #### [facility] [address] [place] [address] [place] #### CH50, C4, C3 #### [facility] ,ALP [Catalytic activity/Vol]52 U/DGcywyf37-186Yin [facility] Comment on above:Performed By: #### CBC, CRP, ADDONUAPLUS, CK, HEPATIC, CREAT, ESR #### [facility] [address] [place] [address] [place] #### CH50, C4, C3 #### [facility] ,ALT [Catalytic activity/Vol]10 U/LNormal7-52The [facility] Comment on above:Performed By: #### CBC, CRP, ADDONUAPLUS, CK, HEPATIC, CREAT, ESR #### [address] #### CH50, C4, C3 #### [facility] ,AST [Catalytic activity/Vol]14 U/XWlevso77-69Wzs [facility] Comment on above:Performed By: #### CBC, CRP, ADDONUAPLUS, CK, HEPATIC, CREAT, ESR #### [address] #### CH50, C4, C3 #### [facility] ,Bilirubin [Mass/Vol]0.5 mg/dLNormal0.3-1.0The [facility] Physician GroupComment on above:Performed By: #### CBC, CRP, ADDONUAPLUS, CK, HEPATIC, CREAT, ESR #### [address] #### CH50, C4, C3 #### [facility] ,Bilirubin,Indirect0.4 mg/dLNoECU Health Medical Center Physician GroupComment on above: Performed By: #### CBC, CRP, ADDONUAPLUS, CK, HEPATIC, CREAT, ESR #### [address] #### CH50, C4, C3 #### [facility] ,Bilirubin.indirect [Mass/Vol]0.10 mg/dLNormal0.03-0.18The [facility] Physician GroupComment on above:Performed By: #### CBC, CRP, ADDONUAPLUS, CK, HEPATIC, CREAT, ESR #### [place] [address] [place] #### CH50, C4, C3 #### [facility] ,Globulin (S) [Mass/Vol]2.8 g/dLNoECU Health Medical Center Physician GroupComment on above:Performed By: #### CBC, CRP, ADDONUAPLUS, CK, HEPATIC, CREAT, ESR #### [facility] [address] [place] [address] [place] #### CH50, C4, C3 #### [facility] ,Protein [Mass/Vol]7.3 g/dLNormal6.4-8.9The [facility] Physician GroupComment on above:Performed By: #### CBC, CRP, ADDONUAPLUS, CK, HEPATIC, CREAT, ESR #### [facility] [address] [place] [address] [place] #### CH50, C4, C3 #### [facility] ,Hyaline casts [#/area] in Urine sediment by Automated countOrdered By: Aristeo Marshall on 92-72-4508Loqavin casts Auto (Urine sed) [#/Area]Hyaline casts [#/area] in Urine sediment by Automated count0-8[facility] Hospital ToledoKetones Test strip Ql (U)Ordered By: Aristeo Marshall on 27-25-1423Tndnezf Ql (U)Ketones [Presence] in Urine by Test stripNegNewark HospitalLeukocyte esterase [Presence] in Urine by Test stripOrdered By: Aristeo Marshall on 75-48-2656Vzhdbmguc esterase Test strip Ql (U)Leukocyte esterase [Presence] in Urine by Test stripNegNewark HospitalLeukocytes [#/area] in Urine sediment by Automated countOrdered By: Aristeo Marshall on 58-98-3137WJB Auto (Urine sed) [#/Area]Leukocytes [#/area] in Urine sediment by Automated count0-4FAdena Health SystemLeukocytes [#/volume] corrected for nucleated erythrocytes in Blood by Automated coun Ordered By: Aristeo Marshall on 06-44-0572UZF corrected for nucl RBC Auto (Bld) [#/Vol]Leukocytes [#/volume] corrected for nucleated erythrocytes in Blood by Automated coun3.8-11.6FAdena Health SystemLymphocytes Auto (Bld) [#/Vol]Ordered By: Aristeo Marshall on 08-01-5996Titbkhiscyg (Bld) [#/Vol] Lymphocytes [#/volume] in Blood by Automated count1.00-4.8[facility] ToledoLymphocytes/100 WBC Auto (Bld)Ordered By: Aristeo Marshall on 76-93-3509Avndhteyvkg/100 WBC (Bld)Lymphocytes/100 leukocytes in Blood by Automated count.[facility] Hospital ToledoMCH Auto (RBC) [Entitic mass] Ordered By: Aristeo Marshall on 30-51-2562ZYU (RBC) [Entitic mass]MCH [Entitic mass] by Automated count24.7-34.3FAdena Health SystemMCHC Auto (RBC) [Mass/Vol]Ordered By: Aristeo Marshall on 92-27-2154RMPN (RBC) [Mass/Vol] MCHC [Mass/volume] by Automated lvdpoFxjr13.0-35.0[facility] ToledoMCV Auto (RBC) [Entitic vol]Ordered By: Aristeo Marshall on 98-94-7127DDG (RBC) [Entitic vol]MCV [Entitic volume] by Automated mpimy27-069XysemprkpRegency Hospital ToledoMonocytes Auto (Bld) [#/Vol]Ordered By: Aristeo Marshall on 19-12-4175Atnhallyz (Bld) [#/Vol]Automated blood monocyte count0.0-0.8[facility] ToledoMonocytes/100 WBC Auto (Bld)Ordered By: Aristeo Marshall on 84-02-5611Qkkcjzzrq/100 WBC (Bld)Automated monocyte %.[facility] Hospital ToledoMucus [Presence] in Urine by AutomatedOrdered By: Aristeo Marshall on 03-60-4448Vhikd Auto Ql (U)Mucus [Presence] in Urine by AutomatedRegency Hospital ToledoNeutrophils Auto (Bld) [#/Vol]Ordered By: Aristeo Marshall on 67-48-0312Avgfhmpucwj (Bld) [#/Vol]Neutrophils [#/volume] in Blood by Automated count1.8-7.7FAdena Health SystemNeutrophils/100 WBC Auto (Bld)Ordered By: Aristeo Marshall on 29-72-4308Eyoiniqzigq/100 WBC (Bld)Automated neutrophil %.[facility] Hospital ToledoNitrite Test strip Ql (U)Ordered By: Aristeo Marshall on 41-66-6739Hptaety Ql (U)Nitrite [Presence] in Urine by Test stripNegativeRegency Hospital ToledoNo Panel InformationOrdered By: Aristeo Marshall on 99-70-3418Gpgekffdu GFR (CKD-EPI)> 60.0 mL/MinRegency Hospital ToledoPharmacy Creatinine Clearance (ChemN/AFAdena Health SystemNucleated erythrocytes [Presence] in Blood by Automated count Ordered By: Aristeo Marshall on 82-61-3341Zsfupjtna RBC Auto Ql (Bld)Nucleated erythrocytes [Presence] in Blood by Automated count0-0.5FAdena Health SystemPlatelet mean volume Auto (Bld) [Entitic vol]Ordered By: Aristeo Marshall on 89-86-3666Ezzpxcye mean volume (Bld) [Entitic vol]Platelet mean volume [Entitic volume] in Blood by Automated count6.3-10.7FAdena Health SystemPlatelets Auto (Bld) [#/Vol]Ordered By: Aristeo Marshall on 53-21-5056Ohmibztis (Bld) [#/Vol]Platelets [#/volume] in Blood by Automated wjhit310-023NmpdtfzmqRegency Hospital ToledoProtein Test strip (U) [Mass/Vol] Ordered By: Aristeo Marshall on 07-11-8870Feovjvy (U) [Mass/Vol]Protein [Mass/volume] in Urine by Test stripNegativeRegency Hospital Toledo Protein [Mass/volume] in Serum or PlasmaOrdered By: Aristeo Marshall on 07-30-2024 Protein [Mass/Vol]Protein [Mass/volume] in Serum or Plasma6.4-8.9[facility] Hospital ToledoRBC Auto (Bld) [#/Vol]Ordered By: Aristeo Marshall on 86-31-2308IBW (Bld) [#/Vol]Erythrocytes [#/volume] in Blood by Automated count High3.60-5.00WVUMedicine Barnesville Hospitalerum or plasma albumin/globulin mass ratioOrdered By: Aristeo Marshall on 16-04-5567Rvxodmc/Globulin [Mass ratio] Serum or plasma albumin/globulin mass ratioRegency Hospital Toledo Serum or plasma complement C3 measurement (mass/volume)Ordered By: Aristeo Marshall on 70-14-0645Fporqokmsf C3 [Mass/Vol]Serum or plasma complement C3 measurement (mass/volume)82-167Reg[facility] Hospital ToledoComment on above:Performed at: [employer] [facility] [id number] Director: Arcenio Garcia PhD, Phone: [phone] or plasma complement C4 measurement (mass/volume)Ordered By: Aristeo Marshall on 20-55-6866Rnjpsdgzuz C4 [Mass/Vol]Serum or plasma complement C4 measurement (mass/volume)Bwat47-21 W[facility]UMedicine Barnesville Hospitalerum or plasma non-glucuronidated bilirubin measurement (mass/volume)Ordered By: Aristeo Marshall on 07-30-2024 Bilirubin.indirect [Mass/Vol]Serum or plasma non-glucuronidated bilirubin measurement (mass/volume)[facility]UMedicine Barnesville Hospitalpecific gravity Test strip (U) [Rel density]Ordered By: Aristeo Marshall on 75-34-2158Rqemjfkg gravity (U) [Rel density]Specific gravity of Urine by Test strip1.001-1.030[facility] Hospital ToledoTotal hemolytic complement CH50 assayOrdered By: Aristeo Marshall on 48-68-5066Txvgb Complement (CH50)59 U/mL>41Reg[facility] Hospital ToledoComment on above:Age Male Female 1 - 30 days Not Estab. Not Estab. 31 days - 6 months >32 >20 7 months - 17 years >39 >39 >17 years >41 >41 NOTE: The adult ( >17 years ) reference intervalrange is used to flag abnormals on this report. If the patient is 17 years old or younger, use the table above to determine out of range values.Performed at: [facility] [id number] Director: Arcenio Garcia PhD, Phone: [phone] Urobilinogen Test strip (U) [Mass/Vol]Ordered By: Aristeo Marshall on 07-30-2024 Urobilinogen (U) [Mass/Vol]Urobilinogen [Mass/volume] in Urine by Test strip NormalFirelands Regional Medical CenterWBC Auto (Bld) [#/Vol]Ordered By: Aristeo Marshall on 34-36-8337YEB (Bld) [#/Vol]Leukocytes [#/volume] in Blood by Automated count3.8-11.6FAdena Health SystempH Test strip (U)Ordered By: Aristeo Marshall on 37-80-3120bJ (U)pH of Urine by Test strip5.0-9.0[facility] Hospital ToledoIGP,APTIMA HPV,AGE GDLNon 72-11-4439SIA GDLN ACOG TESTINGNote.NOMS HealthcareComment on above:TESTS RESULT FLAG UNITS REF RANGE LAB Clinician Provided Cytology Information Source.............Cervix;Endocervix No. of containers..01 ThinPrep Vial Age Algo ACOG Edilma... FLAG LEGEND: L-Low Normal,H-High Normal,LL-Alert Low,HH-Alert High <-Panic Low,>-Panic High,A-Abnormal,AA-Critical Abnormal Performed at: 01 =G [address] [address] Maki Cash MD, HPV APTIMANegativeNegativeNOMS HealthcareComment on above:This nucleic acid amplification test detects fourteen high- risk HPV types (16,18,31,33,35,39,45,51,52,56,58,59,66,68) without differentiation. Performed at: =G - [facility] [address], [place] [id number] Real Time Trader: Maki Cash MD, Phone: [phone] Performed at: WB - [facility] [address] [facility] [place], [place] [id number] Real Time Trader: Maki Cash MD, Phone: [phone] IGP, APTIMA HPV, RFX 16/18,45NoteAbnormal.NOMS HealthcareComment on above:TESTS RESULT FLAG UNITS REF RANGE LAB DIAGNOSIS: [A] 02 EPITHELIAL CELL ABNORMALITY. ATYPICAL SQUAMOUS CELLS OF UNDETERMINED SIGNIFICANCE (ASC-US). Specimen adequacy: 02 Satisfactory for evaluation. Endocervical and/or squamous metaplastic cells (endocervical component) are present. Performed by: 02 Mehran Crouch, Tool Tender (ASCP) Electronically si... 02 Nadine Araujo MD, Pathologist . 02 Pathologist ICD10: 02 R87.610 Note: Note 02 The Pap smear is a screening test designed to aid in the detection of premalignant and malignant conditions of the uterine cervix. It is not a diagnostic procedure and should not be used as the sole means of detecting cervical cancer. Both false-positive and false-negative reports do occur. Test Methodology: Note 02 This liquid based ThinPrep(R) pap test was screened with the use of an image guided system. HPV Genotype Reflex Note 02 Criteria not met, HPV Genotype not performed. FLAG LEGEND: L-Low Normal,H-High Normal,LL-Alert Low,HH-Alert High <-Panic Low,>-Panic High,A-Abnormal,AA-Critical Abnormal Performed at: 02 [facility] [address] [place] [address] Maki Cash MD, Interpretation and review of laboratory resultsAbnoGuthrie Troy Community Hospital BRUSH-SPATULA CERVIX ENDOCERVIX CLINISYNashville [facility] Hospital [facility] papilloma virus 16+18+31+33+35+39+45+51+52+56+58+59+66+68 DNA [Presence] in [place] 53-92-2358JJR 16+18+31+33+35+39+45+51+52+56+58+59+66+68 DNA Probe+sig amp Ql (Cvx)Human papilloma virus 16+18+31+33+35+39+45+51+52+56+58+59+66+68 DNA [Presence] in Protestant HospitalComment on above:This nucleic acid amplification test detects fourteen high-risk HPV types (16,18,31,33,35,39,45,51,52,56,58,59,66,68)without differentiation.Performed at: = - [address] [id number] Director: Maki Cash MD, Phone: [phone] at: [address] [id number] Director: Maki Cash MD, Phone: [phone] Panel Informationon 12-16-0066YTN High Risk Other CommentNote Abnormal.[facility] Hospital ToledoComment on above:TESTS RESULT FLAG UNITS REF RANGE LAB DIAGNOSIS: [A] 02 EPITHELIAL CELL ABNORMALITY. ATYPICAL SQUAMOUS CELLS OF UNDETERMINED SIGNIFICANCE (ASC-US).Specimen adequacy: 02 Satisfactory for evaluation. Endocervical and/or squamous metaplastic cells (endocervical component) are present.Performed by: 02 Mehran Crouch, Tool Tender (ASCP)Electronically si... 02 Nadine Araujo MD, Pathologist. 02Pathologist ICD10: 02 R87.610Note: Note 02 The Pap smear is a screening test designed to aid in the detection of premalignant and malignant conditions of the uterine cervix. It is not a diagnostic procedure and should not be used as the sole meansof detecting cervical cancer. Both false-positive and false-negative reports do occur.Test Methodology: Note 02 This liquid based ThinPrep(R) pap test was screened with the use of an image guided system.HPV Genotype Reflex Note 02 Criteria not met, HPV Genotype not performed. FLAG LEGEND: L-Low Normal,H-High Normal,LL- Alert Low,HH-Alert High <-Panic Low,>-Panic High,A-Abnormal,AA-Critical Abnormal Performed at:[address] [facility] [place] [address] Maki Cash MD, Mgwdmkfgp Lab Test Patient AgeNote.[facility] Hospital ToledoComment on above:TESTS RESULT FLAG UNITS REF RANGE LAB Clinician Provided Cytology Information Source.............Cervix;Endocervix No. of containers..01 ThinPrep VialAge Sharitao ACOG Edilma... FLAG LEGEND: L-Low Normal,H-High Normal,LL-Alert Low,HH-Alert High <-Panic Low,>-Panic High,A- Abnormal,AA-Critical Abnormal Performed a t:01 =G [address] [address] Maki Cash MD, Jwpallntr Auto (Bld) [#/Vol]on 64-31-4388Dgtamvdce (Bld) [#/Vol]Automated basophil count0.0-0.1FAdena Health System Basophils/100 WBC Auto (Bld)on 16-95-0819Yzidzatsp/100 WBC (Bld)Automated basophil %0.2-2.0[facility] ToledoCentriole Ab [Titer] in Serum by Immunofluorescenceon 81-19-9709Zzsloavmf Ab IF (S) [Titer]Centriole Ab [Titer] in Serum by Immunofluorescence.[facility] Centromere Ab [Titer] in Serum by Immunofluorescenceon 16-91-8517Dxlgatpcrz Ab IF (S) [Titer]Centromere Ab [Titer] in Serum by Immunofluorescence.[facility] ToledoEosinophils/100 WBC Auto (Bld)on 05-02-2024 Eosinophils/100 WBC (Bld)Automated eosinophil %0.9-7.0[facility] ToledoErythrocyte distribution width Auto (RBC) [Ratio]on 08-68-3191Rvgmkduxvvu distribution width (RBC) [Ratio]Erythrocyte distribution width [Ratio] by Automated count11.0-15.0[facility] ToledoHematocrit Auto (Bld) [Volume fraction]on 76-14-0645Sjjdnrwrdp (Bld) [Volume fraction]Hematocrit [Volume Fraction] of Blood by Automated count36.0-48.0[facility] ToledoHemoglobin [Mass/volume] in Bloodon 79-64-5595Kotgzwfqni (Bld) [Mass/Vol] Hemoglobin [Mass/volume] in Blood12.0-16.0[facility] ToledoIron binding capacity [Mass/volume] in Serum or Plasmaon 19-32-2423Nqam binding capacity [Mass/Vol]Iron binding capacity [Mass/volume] in Serum or Plasma 250.0-450.0[facility] ToledoIron saturation [Mass Fraction] in Serum or Plasmaon 10-13-5358Cmrs saturation [Mass fraction]Iron saturation [Mass Fraction] in Serum or PlasmaRegency Hospital ToledoLaboratory - Chemistry and Chemistry - challengeon 39-84-6949Hsbzqtar [Mass/Vol]79.0 ng/mL 8.0-252.0[facility] ToledoFree T4 [Mass/Vol]0.81 ng/dL0.76-1.46 [facility] ToledoIron [Mass/Vol]81.0 ug/dL50.0-170.0[facility] ToledoTSH Qn2.377 m[IU]/L0.358-3.740[facility] ToledoLaboratory - Hematology and Cell countson 56-56-3254Nxetimpd granulocytes/100 WBC (Bld)0.3 %0.0-0.5FAdena Health System Leukocytes [#/volume] corrected for nucleated erythrocytes in Blood by Automated counon 11-04-2108ZMF corrected for nucl RBC Auto (Bld) [#/Vol]Leukocytes [#/volume] corrected for nucleated erythrocytes in Blood by Automated coun 4.0-11.0[facility] ToledoLymphocytes Auto (Bld) [#/Vol]on 16-86-5924Yugjbuvjlut (Bld) [#/Vol]Lymphocytes [#/volume] in Blood by Automated count1.2-3.8[facility] ToledoLymphocytes/100 WBC Auto (Bld)on 72-91-6954Ztryevdrnua/100 WBC (Bld)Lymphocytes/100 leukocytes in Blood by Automated count20.5-60.0[facility] CenterH Auto (RBC) [Entitic mass]on 05-15-7368QYQ (RBC) [Entitic mass]MCH [Entitic mass] by Automated count 26.7-34.0[facility] CenterHC Auto (RBC) [Mass/Vol]on 13-94-0245RJVT (RBC) [Mass/Vol]MCHC [Mass/volume] by Automated count29.9-35.2 [facility] CenterV Auto (RBC) [Entitic vol]on 35-19-6277ZXE (RBC) [Entitic vol]MCV [Entitic volume] by Automated count81.0-99.0[facility] ToledoMidbody Ab [Titer] in Serum by Immunofluorescenceon 64-09-8786Yvjqmwn Ab IF (S) [Titer]Midbody Ab [Titer] in Serum by Immunofluorescence.[facility] ToledoMitotic spindle apparatus Ab [Titer] in Serum or Plasma by Immunofluorescenceon 63-23-7127Ijzdhcx spindle apparatus Ab IF [Titer]Mitotic spindle apparatus Ab [Titer] in Serum or Plasma by Immunofluorescence.[facility] ToledoMonocytes Auto (Bld) [#/Vol]on 95-81-7428Kubysvvtv (Bld) [#/Vol]Automated blood monocyte count0.3-0.8 [facility] ToledoMonocytes/100 WBC Auto (Bld)on 05-02-2024 Monocytes/100 WBC (Bld)Automated monocyte %1.7-12.0[facility] ToledoNeutrophils Auto (Bld) [#/Vol]on 08-28-4431Iaoeikimrzw (Bld) [#/Vol] Neutrophils [#/volume] in Blood by Automated count1.4-6.5FAdena Health SystemNeutrophils/100 WBC Auto (Bld)on 76-55-5873Qapyltdkubs/100 WBC (Bld)Automated neutrophil %43.0-75.0[facility] ToledoNo Panel Informationon 72-41-7749Gxsp-Nuclear Antibody Comment 2Comment.[facility] ToledoComment on above:Pattern Potential Disease Association Homo geneous Systemic Lupus Erythematosus, Drug Induced Systemic Lupus Erythematosus, Chronic Autoimmunehepatitis, Juvenile Idiopathic Arthritis Speckled Sjogren Syndrome, Systemic Lupus Erythematosus, Subacute Cutaneous Lupus, Lupus, Congenital Heart Block, Mixed Connective Tissue Disease, Scleroderma-diffuse, Scleroderma- Autoimmune Myositis Overlap Syndrome, Systemic Lupus Wnsxejqprazab-Xaratqsmujw-Dgepwtbyvl Myositis Overlap Syndrome, Systemic Autoimmune Rheumatic Disease, Undifferentiated Connective Tissue Disease Nucleolar Systemic Sclerosis, Scleroderma-Autoimmune Myositis Overlap Syndrome, Sjogren Syndrome, Raynaud phenomenon, Pulmonary Arterial Hypertension, Systemic Autoimmune Rheumatic Disease, Cancer Centromere Scleroderma-CREST, Limited Cutaneous SSc, Raynaud's Phenomenon, Primary Biliary Cholangit is Nuclear Dot Primary Biliary Cholangitis Nuclear Primary Biliary Cholangitis, AutoimmuneMembrane Hepatitis/Liver disease, Systemic Autoimmune Rheumatic Disease, Autoimmune Cytopenias, Linear Scleroderma, Antiphospholipid Syndrome Performed at: [facility] [address] [id number] Director: Arcenio Garcia PhD, Phone: [phone] # (Auto)0.3 10 3/uL0.0-0.7FAdena Health SystemImmature Granulocyte # (Auto)0.02 10 3/uL0.00-0.03 [facility] ToledoTotal Htgctdwqnohnivlp779 ng/sQ46-708MhxdpxeybRegency Hospital ToledoComment on above:Performed at: [facility] [address] [id number] Director: Arcenio Garcia PhD, Phone: [phone] dots nuclear Ab pattern [Titer] in Serum by Immunofluorescence on 40-04-7954Bnuqpmk dots nuclear Ab pattern IF (S) [Titer]Nuclear dots nuclear Ab pattern [Titer] in Serum by Immunofluorescence.[facility] ToledoNuclear membrane pores nuclear Ab pattern [Titer] in Serum by Immunofluorescenceon 55-21-9298Bdwsrlh membrane pores nuclear Ab pattern IF (S) [Titer]Nuclear membrane pores nuclear Ab pattern [Titer] in Serum by Immunofluorescence.[facility]edoPCNA extractable nuclear Ab [Titer] in Serum by Immunofluorescenceon 62-56-1482DDDJ extractable nuclear Ab IF (S) [Titer]PCNA extractable nuclear Ab [Titer] in Serum by Immunofluorescence .[facility] ToledoPlatelet mean volume Auto (Bld) [Entitic vol] on 56-16-4984Pxmngieq mean volume (Bld) [Entitic vol]Platelet mean volume [Entitic volume] in Blood by Automated count9.5-13.5FAdena Health SystemPlatelets Auto (Bld) [#/Vol]on 85-03-9292Zkfuotslv (Bld) [#/Vol]Platelets [#/volume] in Blood by Automated iqdbo008-904EuzkkhtjwRegency Hospital [place]edo RBC Auto (Bld) [#/Vol]on 08-62-9724OFR (Bld) [#/Vol]Erythrocytes [#/volume] in Blood by Automated count4.20-5.40WVUMedicine Barnes[facility] Hospitalerum homogeneous pattern antinuclear antibody (TRISTIAN) titeron 05-14-9140Lobruubktp nuclear Ab pattern (S) [Titer]Serum homogeneous pattern antinuclear antibody (TRISTIAN) titerAbnormal.[facility] ToledoComment on above:ICAP nomenclature: AC-1Serum nuclear antibody titeron 69-40-4973Vzjfczq Ab (S) [Titer]Serum nuclear antibody titerAbnormal.[facility] Comment on above:Negative <1:80 Borderline 1:80 Positive >1:80Serum nucleolar pattern antinuclear antibody (TRISTIAN) titeron 88-14-4433Bihfvgpws nuclear Ab pattern (S) [Titer]Serum nucleolar pattern antinuclear antibody (TRISTIAN) titer. [facility] Hospitalerum speckled pattern antinuclear antibody (TRISTIAN) titeron 20-36-0930Szipfstp nuclear Ab pattern (S) [Titer]Serum speckled pattern antinuclear antibody (TRISTIAN) titer.[facility] Cytology Cervical or vaginal smear or scraping studyOrdered By: Camila Sandoval on 23-44-8730[facility]GSaint [facility] AUTO DIFFon 12-11-5696SIIJ #0.1 103/ulNormal 0.0-0.1Wilson Memorial HospitalComment on above:Performed By: #### CBC #### [facility] [address] [address] [address] Naren LeonBasophils/100 WBC (Bld)0.7 %Normal0.2-2.0[facility] Comment on above:Performed By: #### CBC #### [facility] [address] [address] [address] Naren Calderón #0.3 103/ulNormal0.0-0.7The [facility] CenterComment on above: Performed By: #### CBC #### [facility] [address] [address] [address] Naren Powerosinophils/100 WBC (Bld)3.7 %Normal0.9-7.0The [facility] Comment on above:Performed By: #### CBC #### [facility] [address] [place] [address] Dr. Naren Powerrythrocyte distribution width (RBC) [Ratio]13.6 %Ngyjtp85.0-15.0 The [facility] CenterComment on above:Performed By: #### CBC #### [facility] [address] [place] [address] Dr. Naren LeonHematocrit (Bld) [Volume fraction]43.1 %Gnviac85.0-48.0The [facility] CenterComment on above:Performed By: #### CBC #### [facility] [address] [place] [address] Dr. Naren LeonHemoglobin (Bld) [Mass/Vol]14.5 g/uHWbylum28.0-16.0The [facility] CenterComment on above:Performed By: #### CBC #### [facility] [address] [place] [address] Dr. Naren Merino #0.03 10e3/ulNormal0.00-0.03The [facility] CenterComment on above:Performed By: #### CBC #### [facility] [address] [place] [address] Dr. Naren Merino %0.3 %Normal0.0-0.5The [facility] CenterComment on above: Performed By: #### CBC #### [facility] [address] [place] [address] Dr. Naren Benjamin #2.8 103/ulNormal1.2-3.8The [facility] CenterComment on above:Performed By: #### CBC #### [facility] [address] [place] [address] Dr. Naren Wheathocytes/100 WBC (Bld)30.3 %Qcstia08.5-60.0The [facility] CenterComment on above:Performed By: #### CBC #### [facility] [address] [place] [address] Dr. Naren SpearsUAL DIFF REQNONormalThe [facility] CenterComment on above: Performed By: #### CBC #### [facility] [address] [place] [address] Dr. Naren Diaz (RBC) [Entitic mass]28.5 byIsknlk46.7-34.0The [facility] CenterComment on above:Performed By: #### CBC #### [facility] [address] [place] [address] Dr. Naren Diaz (RBC) [Mass/Vol]33.6 g/lEGfbtix39.9-35.2The Pinehurst HospitalComment on above:Performed By: #### CBC #### [facility] [address] [place] [address] Dr. Naren Diaz (RBC) [Entitic vol]84.8 cMCbchxe76.0-99.0The [facility] CenterComment on above:Performed By: #### CBC #### [facility] [address] [place] [address] Dr. Naren Baron #0.7 103/ulNormal0.3-0.8The [facility] CenterComment on above:Performed By: #### CBC #### [facility] [address] [place] [address] Dr. Naren Jinocytes/100 WBC (Bld)7.2 %Normal1.7-12.0The [facility] Comment on above:Performed By: #### CBC #### [facility] [address] [place] [address] Dr. Naren Hung #5.3 103/ulNormal1.4-6.5The [facility] CenterComment on above:Performed By: #### CBC #### [facility] [address] [place] [address] Dr. Naren Meloutrophils/100 WBC (Bld)57.8 %Alfjwc28.0-75.0The [facility] CenterComment on above:Performed By: #### CBC #### [facility] [address] [place] [address] Dr. Naren Calderónlet mean volume (Bld) [Entitic vol]10.2 fLNormal9.5-13.5The [facility] on above:Performed By: #### CBC #### [facility] [address] [place] [address] Dr. Naren MeadowsT295 103/tuLopfgi555-707Lac [facility] on above: Performed By: #### CBC #### [facility] [address] [place] [address] Dr. Naren LeonRBC5.08 106/ulNormal4.20-5.40The [facility] on above:Performed By: #### CBC #### [facility] [address] [place] [address] Dr. Naren LeonWBC9.1 103/ulNormal4.0-11.0The [facility] on above: Performed By: #### CBC #### [facility] [address] [place] [address] Dr. Naren AndinoID PROFILEon 27-54-7435NQUS-HDL RATIO NORMSEE [facility] HospitalComkarmanos cancer center on above:Result Comment: 3.3 - 4.4 LOW RISK 4.4 - 7.1 AVERAGE RISK 7.1 - 11.0 MODERATE RISK >11.0 HIGH RISKPerformed By: #### TSH, LIPID, CMP #### [facility] [address] [place] [address] Dr. Naren LeonCholesterol [Mass/Vol]229 mg/dLCritically high<=200The [facility] on above:Performed By: #### TSH, LIPID, CMP #### [facility] [address] [place] [address] Dr. Naren Newmanesterol in HDL [Mass/Vol]65 mg/dLCritically kngj20-74Amx [facility] on above:Performed By: #### TSH, LIPID, CMP #### [facility] [address] [place] [address] Dr. Naren Newmanesterol in LDL [Mass/Vol]147.8 mg/dLNormalThe Gucci HospitalComment on above:Performed By: #### TSH, LIPID, CMP #### [facility] [address] [address] [address] Naren LeonCholesterol.total/Cholesterol in HDL [Mass ratio]3.5 {ratio} NormalThe [facility] CenterComment on above:Performed By: #### TSH, LIPID, CMP #### [facility] [address] [address] [address] Naren Church NORMAL> or = 60 mg/dl - LOW CARDIOVASCULAR RISK <40 mg/dl - HIGH CARDIOVASCULAR RISKSelect Medical Specialty Hospital - CantonComment on above:Performed By: #### TSH, LIPID, CMP #### [facility] [address] [address] [address] Naren LeonLDL CALC NORMALSEE BELOWSelect Medical Specialty Hospital - CantonComment on above:Result Comment: <100 mg/dl OPTIMAL 100 - 129 mg/dl NEAR OR ABOVE OPTIMAL 130 - 159 mg/dl BORDERLINE HIGH 160 - 189 mg/dl HIGH >190 mg/dl VERY HIGH Performed By: #### TSH, LIPID, CMP #### [facility] [address] [address] [address] Naren LeonTriglyceride [Mass/Vol]81 mg/dLNormal<=150The [facility] Comment on above:Performed By: #### TSH, LIPID, CMP #### [facility] [address] [address] [address] Naren LeonVLDL CALC16.2 mg/dLNormACMC Healthcare System GlenbeighComment on above: Performed By: #### TSH, LIPID, CMP #### [facility] [address] [address] [address] Naren LeonPROF 14(COMP METB)on 91-68-1570Jgojvfb [Mass/Vol]3.9 g/dLNormal 3.4-5.0[facility] HospitalComment on above:Performed By: #### TSH, LIPID, CMP #### [facility] [address] [address] [address] Naren LeonAlbumin/Globulin [Mass ratio]1.1 {ratio}NormalThe [facility] CenterComment on above:Performed By: #### TSH, LIPID, CMP #### [facility] [address] [place] [address] Dr. Naren Hdz [Catalytic activity/Vol]53 U/SAsswgk15-178Hec [facility] CenterComment on above:Performed By: #### TSH, LIPID, CMP #### [facility] [address] [place] [address] Dr. Naren Schneider [Catalytic activity/Vol]24 U/DFskzdw35-02Nun [facility] CenterComment on above:Performed By: #### TSH, LIPID, CMP #### [facility] [address] [place] [address] Dr. Naren Theodore gap [Moles/Vol]11.1 mmol/LNormalThe [facility] Comment on above:Performed By: #### TSH, LIPID, CMP #### [facility] [address] [place] [address] Dr. Naren LeonAST [Catalytic activity/Vol]16 U/XVvcuuv61-12Irq [facility] CenterComment on above:Performed By: #### TSH, LIPID, CMP #### [facility] [address] [place] [address] Dr. Naren LeonBilirubin [Mass/Vol]0.5 mg/dLNormal0.2-1.0[facility] Comment on above:Performed By: #### TSH, LIPID, CMP #### [facility] [address] [place] [address] Dr. Naren LeonCalcium [Mass/Vol]8.7 mg/dLNormal8.5-10.1[facility] Comment on above:Performed By: #### TSH, LIPID, CMP #### [facility] [address] [place] [address] Dr. Naren LeonChloride [Moles/Vol]103 mmol/BFbiuas48-728One [facility] Comment on above:Performed By: #### TSH, LIPID, CMP #### [facility] [address] [place] [address] Dr. Naren LeonCO2 [Moles/Vol]27.8 mmol/IXqsdoe39.0-32.0The [facility] Comment on above:Performed By: #### TSH, LIPID, CMP #### [facility] [address] [address] [address] Naren LeonCreatinine [Mass/Vol]0.87 mg/dLNormal0.55-1.02The [facility] CenterComment on above:Performed By: #### TSH, LIPID, CMP #### [facility] [address] [place] [address] Dr. Naren PowerGFR-AF KAZAKH>60Normal>=60The [facility] CenterComment on above:Performed By: #### TSH, LIPID, CMP #### [facility] [address] [place] [address] Dr. Naren Reynolds-NON AF KAZAKH>60Normal>=60The [facility] CenterComment on above:Performed By: #### TSH, LIPID, CMP #### [facility] [address] [place] [address] Dr. Naren LeonGlobulin (S) [Mass/Vol]3.6 g/dLNormalThe [facility] CenterComment on above:Performed By: #### TSH, LIPID, CMP #### [facility] [address] [place] [address] Dr. Naren LeonGlucose [Mass/Vol]90 mg/uDVocojf85-636TifWilson Memorial Hospital Comment on above:Performed By: #### TSH, LIPID, CMP #### [facility] [address] [place] [address] Dr. Naren LeonPotassium [Moles/Vol]3.9 mmol/LNormal3.5-5.1The [facility] Comment on above:Performed By: #### TSH, LIPID, CMP #### [facility] [address] [place] [address] Dr. Naren LeonProtein [Mass/Vol]7.5 g/dLNormal6.4-8.2The [facility] Comment on above:Performed By: #### TSH, LIPID, CMP #### [facility] [address] [address] [address] Naren LeonSodium [Moles/Vol]138 mmol/GWcrnux660-890Pss [facility] Comment on above:Performed By: #### TSH, LIPID, CMP #### [facility] [address] [address] [address] Naren Perez nitrogen [Mass/Vol]15.0 mg/dLNormal7.0-18.0The [facility] CenterComment on above:Performed By: #### TSH, LIPID, CMP #### [facility] [address] [address] [address] Naren Perez nitrogen/Creatinine [Mass ratio]17.2 mg/mgNormalThe [facility] CenterComment on above:Performed By: #### TSH, LIPID, CMP #### [facility] [address] [place] [address] Dr. Naren Bermudez 23-27-9793QJN1.283 uIU/mLNormal0.358-3.740The [facility] CenterComment on above:Performed By: #### TSH, LIPID, CMP #### [facility] [address] [place] [address] Dr. Naren MolinaG ( test) IA.rapid Ql (U)Ordered By: Barry Machado on 86-73-1122BRD ( test) Ql (U)NegativeReg[facility] COVID-19 SOFIAOrdered By: Barry Machado on 07-75-7859BYRJ-CoV+SARS-CoV-2 (COVID- 19) Ag IA.rapid Ql (Resp)NegativeNegativeRegency Hospital [facility]edo Comment on above:This is a duplicate Cristine SARS Antigen (BRYAN) result to be used for statistical tracking purpose only.No Panel InformationOrdered By: Barry Machado on 19-01-9046GEGT Antigen (LFIA)[facility] Hospital ToledoAbstract on [id number] Leigh Vallecillo 1970 F Date Provider Department Center 02/11/2022 SHAN CHA [facility] Family History Problem Relation Age of Onset Other Mother Other Father Diabetes Paternal Grandmother Family Status - Relation Status Age at Mother Father Paternal GrandmotherNClermont County HospitalNM HEPATOBILIARY SCAN W EFon 98-02-5154JR HEPATOBILIARY SCAN W EFEXAMINATION: NM HEPATOBILIARY SCAN W EF HISTORY: Right [...] Electronically authenticated by: PEREZ HILL Date: 2022-01-17 18:39[facility] ACOG PANEL 2: 30 to 65on 12-30-2021..NormalThe [facility] CenterComment on above:Result Comment: Performed at: WBPerformed By: #### [id number] #### [facility] [address] [place] [address] Dr. Naren Dallas Gdln ACOG Nkrdyog99-44HwozrzKafMercy Health Fairfield HospitalComment on above:Performed By: #### [id number] #### [facility] [address] [place] [address] Dr. Naren LeonDIAGNOSIS:CommentAbOhioHealth Riverside Methodist HospitalComment on above: Result Comment: EPITHELIAL CELL ABNORMALITY. ATYPICAL SQUAMOUS CELLS OF UNDETERMINED SIGNIFICANCE (ASC-US). Performed at: WBPerformed By: #### [id number] #### [facility] [address] [place] [address] Dr. Sneed ChangElectronically signed by:[facility] Comment on above:Result Comment: Qasim Mtz MD, Pathologist Performed at: WBPerformed By: #### [id number] #### [facility] [address] [place] [address] Dr. Naren LeonHPV AptimaNegativeNormalNegativeThe [facility] CenterComkarmanos cancer center on above:Result Comment: This nucleic acid amplification test detects fourteen high-risk HPV types (16,18,31,33,35,39,45,51,52,56,58,59,66,68) without differentiation. Performed at: =GPerformed By: #### [id number] #### [facility] [address] [place] [address] Dr. Naren LeonMethodology:CommentNoTriHealth [facility]hes[facility] Butler Hospital on above: Result Comment: This liquid based ThinPrep(R) pap test was screened with the use of an image guided system. Performed at: WBPerformed By: #### [id number] #### [facility] [address] [place] [address] Dr. Naren LeonNote:CommentNoTriHealth Bethesda Butler Hospital on above:Result Comment: The Pap smear is a screening test designed to aid in the detection of premalignant and malignant conditions of the uterine cervix. It is not a diagnostic procedure and should not be used as the sole means of detecting cervical cancer. Both false-positive and false-negative reports do occur. . Performed at: WBPerformed By: #### [id number] #### [facility] [address] [place] [address] Dr. Naren LeonPathologist Provided RVV67ZdprtzuFxvqeqVmmSelect Medical Specialty Hospital - Canton Comment on above:Result Comment: R87.610 Performed at: WBPerformed By: #### [id number] #### [facility] [address] [place] [address] Dr. Naren LeonPerformed by:CommentNoTriHealth Bethesda Butler Hospital on above: Result Comment: Germania Sellers, Tool Tender (ASCP) Performed at: WBPerformed By: #### [id number] #### [facility] [address] [place] [address] Dr. Naren LeonRecommendation:CommentAbnormalThe Gucci HospitalComment on above:Result Comment: Suggest follow up as clinically appropriate. Performed at: WBPerformed By: #### [id number] #### [facility] [address] [place] [address] Dr. Naren LeonSpecimekarma adequacy:CommentNormOhioHealth Arthur G.H. Bing, MD, Cancer Center HospitalComment on above:Result Comment: Satisfactory for evaluation. Endocervical and/or squamous metaplastic cells (endocervical component) are present. Performed at: WBPerformed By: #### [id number] #### [facility] [address] [place] [address] Dr. Naren LeonUS SINGLE QUAD RT UPPERon 43-79-2176RK SINGLE QUAD RT UPPEREXAM: Ultrasound of the right upper quadrant HISTORY: [...] Electronically authenticated by: PEREZ ARAUJO Date: 2021-12-29 08:29NormSt. Rita's Hospitale Pinehurst HospitalCULTURE URINEon 85-54-0301GAHLESD URINECulture Observations: LIGHT GROWTH OF MIXED GENITAL JEFF. NO POTENTIAL PATHOGENS SEEN.NormalThe [facility] Medical CenterComment on above:Performed By: #### URCX #### [facility] [address] [place] [address] Dr. Naren LeonUA RANDOM W/MICROSCOPICon 61-29-2134RGWYBCJVOVFOXEjvennlwDTCN SEENThe [facility] CenterComment on above:Performed By: #### UAMIC #### [facility] [address] [place] [address] Dr. Naren LeonBilirubin Ql (U)NegativeNormalNEGATIVEThe [facility] Comment on above:Performed By: #### UAMIC #### [facility] [address] [address] [address] Naren LeonCASTNONE SEENNormalNONE SEENWilson Memorial HospitalComment on above:Performed By: #### UAMIC #### [facility] [address] [address] [address] Naren Stevensarity (U)CLEARNormalCLEARWilson Memorial HospitalComment on above: Performed By: #### UAMIC #### [facility] [address] [address] [address] Naren Kate (U)LT. YELLOWNormalYELLOWWilson Memorial HospitalComment on above:Performed By: #### UAMIC #### [facility] [address] [place] [address] Dr. Naren LeonCrystals LM Nom (Urine sed)NONE SEENNormalNONE SEENWilson Memorial HospitalComment on above:Performed By: #### UAMIC #### [facility] [address] [address] [address] Sneed ChangEpithelial cells LM Ql (Urine sed)MODERATEAbnormalNONE SEEN /RARE The [facility] CenterComkarmanos cancer center on above:Performed By: #### UAMIC #### [facility] [address] [place] [address] Dr. Naren LeonGlucose Ql (U)NegativeNormalNEGATIVEWilson Memorial HospitalComment on above:Performed By: #### UAMIC #### [facility] [address] [address] [address] Naren LeonHemoglobin Ql (U)NegativeNormalNEGChillicothe Hospital Comment on above:Performed By: #### UAMIC #### [facility] [address] [address] [address] Naren LeonKetones Ql (U)NegativeNormalNEGATIVEWilson Memorial HospitalComment on above:Performed By: #### UAMIC #### [facility] [address] [place] [address] Dr. Naren BlueOCYTESTRACEAbnormalNEGATIVEThe [facility] CenterComment on above:Performed By: #### UAMIC #### [facility] [address] [place] [address] Dr. Naren JefferyCOUSTRACEAbnormalNONE SEENWilson Memorial HospitalComment on above:Performed By: #### UAMIC #### [facility] [address] [place] [address] Dr. Naren Goldbergtrite Ql (U)NegativeNormalNEGATIVEThe [facility] CenterComment on above:Performed By: #### UAMIC #### [facility] [address] [place] [address] Dr. Naren LeonpH (U)6.0 [pH]Normal5-9The [facility] CenterComment on above: Performed By: #### UAMIC #### [facility] [address] [place] [address] Dr. Naren LeonUpnhpDOF8-0Cdplin7-0Nwk Children's Hospital of Columbusment on above:Performed By: #### UAMIC #### [facility] [address] [place] [address] Dr. Naren LeonSPEC GRAVITY<=1.045Zopszfau1.005-<=1.025The [facility] Comment on above:Performed By: #### UAMIC #### [facility] [address] [place] [address] Dr. Naren LeonUA PROTEINNegativeNormalNEGATIVE/ TRACEThe [facility] Comment on above:Performed By: #### UAMIC #### [facility] [address] [place] [address] Dr. Naren Engelbilvanessagen Qn (U)0.2 {Daiana'U}/dLNormal0.2 - 1.0The [facility] CenterComkarmanos cancer center on above:Performed By: #### UAMIC #### [facility] [address] [place] [address] Dr. Naren LeonWBC0-2AbnormalNONE SEENThe [facility] CenterComment on above: Performed By: #### UAMIC #### [facility] [address] [address] [address] Naren Miller Summary.on 33-21-9206Rklfsy Summary.CODING DATE: 12/17/2019 FINAL [facility] STATUS: Home (Routine DC) PAYOR: Medical Reeds ADMIT DX: REASON FOR VISIT DX: Z11.59 [...] By: Shan Gilmore Date Saved: 12/17/2019 06:50 [facility] ClinicPhysician Order on [id number] [id number]#1.00CD:127 [facility] Vital Signs Date TimeVital SignValuePerforming TfyszumnkNbxaizsx29-13-5909 14:56-0400Body kpgyhx917.02 cmBenjamin Ball DO Work Phone: [facility]07-22-2025 14:56-0400 Body mass index (BMI) [Ratio]28 kg/e2Vpczkfdx Ball DO Work Phone: [phone]07-22-2025 14:56-0400 Body cfhaad16.66 kgBenjamin Ball DO Work Phone: [facility]07-22-2025 14:56-0400 Diastolic blood zknjehty18 mm[Hg]Bill Ball DO Work Phone: [facility]07-22-2025 14:56-0400 Heart rate76 /minBenjamin Ball DO Work Phone: [facility]07-22-2025 14:56-0400 Respiratory rate12 /minBenjamin Ball DO Work Phone: [facility] [facility]07-22-2025 14:56-0400 Systolic blood fqhqulgb944 mm[Hg]Bill Ball DO Work Phone: 1(419)[address] [place], [place] 0422005-29-2025 10:04-0400 Diastolic blood mm[Hg]Bill Ball DO Work Phone: 1(419)[address] [place], [place] 0422005-29-2025 10:04-0400 Heart rate75 /minBenjamin Ball DO Work Phone: 1(419)[address] [place], [place] 0422005-29-2025 10:04-0400 Respiratory rate16 /minBenjamin Ball DO Work Phone: 1(419)[address] [place], [place] 0422005-29-2025 10:04-0400 SaO2% (BldA) [Mass fraction]98 %Bill Ball DO Work Phone: 1(419)[address] [place], [place] 0422005-29-2025 10:04-0400 Systolic blood syqrczat55 mm[Hg]Bill Ball DO Work Phone: 1(419)[address] [place], [place] 0422005-29-2025 08:10-0400 Body .02 cmBenjamin Ball DO Work Phone: 1(419)[address] [place], [place] 0422005-29-2025 08:10-0400 Body ldytju87 kgBenjamin Ball DO Work Phone: 1(419)[address] [place], [place] 0422004-02-2025 15:27-0400 Body pvippo739.02 cmBenjamin Ball DO Work Phone: 1(419)[address] [place], [place] 0422004-02-2025 15:27-0400 Body mass index (BMI) [Ratio]28 kg/y3Zhkvryov Ball DO Work Phone: 1(419)[address] [place], [place] 0422004-02-2025 15:27-0400 Body vufmcm42.66 kgBenjamin Ball DO Work Phone: 1(419)[address] [place], [place] 0422004-02-2025 15:27-0400 Diastolic blood mm[Hg]Bill Ball DO Work Phone: 1(419)[address] [place], [place] 0422004-02-2025 15:27-0400 Heart rate72 /minBenjamin Ball DO Work Phone: 1(919)[facility] [place], [place] 6050604-02-2025 15:27-0400 Respiratory rate12 /minBenjamin Ball DO Work Phone: 1(060)[address] [place], [place] 0422004-02-2025 15:27-0400 Systolic blood spjmenpk781 mm[Hg]Bill Ball DO Work Phone: 1(879)[address] [place], [place] 0422001-07-2025 09:44-0500 Body mass index (BMI) [Ratio]26.95 kg/e4Nmdtz Jacqui DO Work Phone: 1(687)[address] [place], [place] 5632001-07-2025 09:44-0500Body ighalh18 kg Cyrus Jacqui DO Work Phone: 1(055)[address] [place], [place] 5632001-07-2025 09:44-0500Diastolic blood huxlsxia58 mm[Hg]Cyrus Jacqui DO Work Phone: 1(355)[facility] [place], [place] [address]Zmniiwutyq93-21-3643 09:44-0500Systolic blood dwurqzuz865 mm[Hg]Cyrus Jacqui DO Work Phone: 1(670)[address] [place], [place] 5632012-09-2024 15:07-0500Body .02 cmBenjamin Ball DO Work Phone: 1(681)[address] [place], [place] 0422012-09-2024 15:07-0500 Body mass index (BMI) [Ratio]27.1 kg/b2Qvrswhft Ball DO Work Phone: 1(092)[address] [place], [place] 0422012-09-2024 15:07-0500 Body fagpbz35.39 kgBenjamin Ball DO Work Phone: 1(100)[address] [place], [place] 0422012-09-2024 15:07-0500 Diastolic blood dkugvvuw40 mm[Hg]Bill Ball DO Work Phone: 1(225)[facility] [place], [place] 6050612-09-2024 15:07-0500 Heart rate71 /minBenjamin Ball DO Work Phone: 1(025)[facility] [place], [place] 6050612-09-2024 15:07-0500 Respiratory rate12 /minBenjamin Ball DO Work Phone: 1(935)[address] [place], [place] 0422012-09-2024 15:07-0500 Systolic blood xzhvhirm661 mm[Hg]Bill Ball DO Work Phone: 1(433)[address] [place], [place] 0422009-26-2022 09:28-0400 Diastolic blood mm[Hg]DO Bill Ball Work Phone: 1(244)[address] [place], [place] 0422009-26-2022 09:28-0400 Heart rate62 /minDO Bill Ball Work Phone: 1(831)[address] [place], [place] 0422009-26-2022 09:28-0400 Respiratory rate16 /minDO Bill Ball Work Phone: 1(718)[address] [place], [place] 0422009-26-2022 09:28-0400 SaO2% (BldA) [Mass fraction]100 %DO Bill Ball Work Phone: 1(377)[address] [place], [place] 0422009-26-2022 09:28-0400 Systolic blood pvrzyqvq372 mm[Hg]DO Bill Ball Work Phone: 1(508)[address] [place], [place] 0422009-26-2022 08:03-0400 Body yhwpio303.02 cmDO Bill Ball Work Phone: 1(682)[address] [place], [place] 0422009-26-2022 08:03-0400 Body ahgoqvmfenf82.7 [degF]DO Bill Ball Work Phone: 1(759)[address] [place], [place] 0422009-26-2022 08:03-0400 Body jrpitw26.77 kgDO Bill Ball Work Phone: 1(030)[address] Encounters Encounter DateEncounter TypeCare ProviderFacilityStart: 04-09-2025 End: 64-94-9332Udebsu flowsheetNatalie A Felter FIRE ASSISTANT-HVAC R TECH Work Phone: noTN Kandi DermatologyStart: 04-09-2025 End: 63-10-0404Msqzzb flowsheetNatalie A Felter FIRE ASSISTANT-HVAC R TECH Work Phone: noTN [facility]andi DermatologyStart: 04-09-2025 End: 26-44-9254Qyrhpf outpatient visit 25 minutesNatkatina Cui Delfino FIRE ASSISTANT-HVAC R TECH Work Phone: [facility]au DermatologyComment on above:Androgenic alopecia; High risk medication use; Seborrheic keratosis; Melanocytic nevus of trunk; Lentigines; Seborrheic keratosis, inflamedStart: 04-09-2025 End: 51-34-9742hkyunmvfyxFFZBIQS A FELTERNot AvailableStart: 01-28-2025 End: 29-21-3006bflugpkcdtJwtloeku Ball DO Work Phone: [facility] Work Phone: Start: 01-28-2025 End: 55-19-7938Lqbwcysr Hollie Vilchis MD-Lab [facility] Work Phone: Start: 12-30-2024 End: 45-24-4485grlhghybfnGvenixzc Ball DO Work Phone: [facility] Work Phone: Start: 12-30-2024 End: 90-29-0856Fjaafbg encounter procedureBeinessamin Felice DO-[facility] Work Phone: Start: 12-04-2024 End: 72-37-4845Sjiyswl encounter procedureCyrus OsamnWilson [facility] Work Phone: Start: 12-04-2024 End: 99-01-0371gvsqbxcuusFnyonqoj Ball DO Work Phone: [facility] Work Phone: Start: 90-50-1480Tsw-patient / Non-visitBekarmajazminemin Ball DO Work Phone: [facility] Work Phone: Start: 11-06-2024 End: 50-61-5231Mvmevoqxc to same day surgery centerBeinessajordan Viveros DO Work Phone: [facility]-Dig[facility] Work Phone: Start: 11-06-2024 End: 88-95-9779bmvdybrbvrFxcvxcyg Ball DO Work Phone: [facility] Work Phone: Start: 09-26-2024 End: 16-07-5827Vbbjueo encounter procedureBenjordyn Viveros DO Work Phone: [facility]-Ultrasound Cntr for Breast CarStart: 09-26-2024 End: 45-69-7482okycxbuemzDutzkker Felice DO Work Phone: [facility] Work Phone: Start: 09-10-2024 End: 43-93-9270ixikrzlauwOhhlhypl Felice DO Work Phone: [facility] Work Phone: Start: 09-10-2024 End: 12-75-7058Rmmppdv encounter procedureBenjordyn Viveros DO Work Phone: [facility] Work Phone: Start: 08-25-2024 End: 67-01-3256Orgpnc outpatient visit 10 minutesCorey Jacqui DO Work Phone: [facility] OBComment on above:Follow-up encounter involving medication (Primary Dx)Start: 08-20-2024 End: 20-42-2380Aiixjlg encounter procedureBenjordyn Viveros DO Work Phone: [facility] Work Phone: Start: 08-20-2024 End: 11-62-1696ghghxnxtwhXxmkikri Felice DO Work Phone: [facility] Work Phone: Start: 07-30-2024 End: 28-28-5833Koipimy encounter procedureBeangie Viveros DO Work Phone: [facility]-Lab [address] Work Phone: Start: 07-30-2024 End: 95-44-3141vhdebkescmLoiznaub Ball DO Work Phone: [facility] Work Phone: Start: 06-17-2024 End: 94-31-8936Hzeqwj flowsheetCorey Jacqui DO Work Phone: [facility] OBStart: 06-17-2024 End: 94-13-5782Bkjeba flowsheetCorey Jacqui DO Work Phone: [facility] OBStart: 06-17-2024 End: 45-60-3651Eltcvofit Result EncounterCorey Jacqui DO Work Phone: [facility] External Department UnsolicitedStart: 06-17-2024 Non-patient / Non-visitBeangie Felice DO Work Phone: [facility] Work Phone: Start: 06-17-2024 End: 73-20-8540Oueozvy encounter procedureCorey Jacqui DO Work Phone: [facility] Work Phone: Start: 06-17-2024 End: 07-03-0185Snncyusq preventive med est patient 40-64yrsCorey Jacqui DO Work Phone: [facility] OBComment on above:Well woman exam with routine gynecological exam; Breast cancer screening by mammogram; Postmenopausal stateStart: 06-17-2024 End: 75-59-2628cfjadutobfVBCSF FAZIONot AvailableStart: 05-19-2024 End: 25-55-6485Ezbooagsa for general adult medical examination without abnormal findingsBeanige Felice DO Work Phone: [facility] Hospitaltart: 05-19-2024 End: 84-07-1337Lutfmqw encounter procedureBeangie Felice DO Work Phone: [facility] Work Phone: Start: 66-83-3635Gixdfav encounter statusBeangie Viveros DO Work Phone: [facility] Hospitaltart: 45-81-3956Egs- patient / Non-visitBeangie Viveros DO Work Phone: [facility] Work Phone: Start: 04-08-2024 End: 64-65-7855Wevvlp outpatient visit 25 minutesNatalie A Bettyer FIRE ASSISTANT-HVAC R TECH Work Phone: [facility] DERMComment on above:Melanocytic nevus of trunk; Seborrheic keratosis; Lentigines; Capillary angioma; Androgenic alopeciaStart: 10-05-2023 End: 84-02-8159ppxzwmantyKP Bill Viveros Work Phone: [facility] Work Phone: Start: 10-05-2023 End: 79-24-9149Vgknkvo encounter procedureDO Bill Viveros Work Phone: [facility] Work Phone: Start: 07-11-2023 End: 58-07-9318wpgvpbeqlfDhymzsyn Ball Other [facility] [employer] Other Start: 39-71-8063Srqhwhzwp encounterBeangie ViverosYUMA REG[facility] ClinicStart: 07-10-2023 End: 91-25-8639qcfcscxxjqYK Bill Viveros Work Phone: [facility] Work Phone: Start: 07-10-2023 End: 71-48-6259Qzcxuym encounter procedureDO Bill Viveros Work Phone: [facility] Work Phone: Start: 03-12-2023 End: 61-05-2119iwiqyexpdpLlwaylcs Ball Other [employer] Other Start: 14-28-5746Fcdrzc outpatient visit 15 minutes Bill BallFPG [facility] ClinicStart: 01-24-2023 End: 76-33-1883telewtlnnvRccshjnz Ball Other [employer] Other start: 72-77-4672Wkujft outpatient visit 15 minutes Bill BallFPG [facility]gent Care ClydeStart: 07-31-2022 End: 56-14-2731ldibszcibfRnnmffhp Ball Other [employer] Other start: 23-53-6423Xqjxqkblj encounterBenjamin BallFPG [facility] ClinicStart: 07-20-2022 End: 51-08-1833tiowxrooraVnxldhsl Ball Other [employer] Other Start: 94-06-5620Wckuihrsw encounterBenjamin BallFPG [facility] ClinicStart: 07-17-2022 End: 86-93-7155exldajwjpwDqtgutxf Ball Other [employer] Other Start: 29-37-1121Lylvhx outpatient visit 15 minutes Bill BallFPG [facility] ClinicStart: 06-14-2022(FP[facility] VCS) [facility] ScheduledBenjamin BallFPG [facility] ClinicStart: 06-14-2022 End: 74-60-1243heslqzdwriVsrfyzqz Ball Other [employer] Other Start: 53-66-5712Fekkzzvye encounterBenjamin BallFPG [facility] ClinicStart: 21-03-8591Npdpl health examinationBenjamin Ball Other [employer] Other Start: 95-83-1269Afgefxeqpbeyq examination normal Bill Ball Other [employer] Other Start: 45-46-2666Fljmhtxgc for general adult medical examination without abnormal findingsDR BILL VIVEROSThe [facility] HospitalStart: 04-01-2022 End: 30-77-8403olxvarzaarML BILL VIVEROSFacility:J2Bzgvj: 04-01-2022 End: 17-77-1890Lbswhlowi for general adult medical examination without abnormal findingsDR BILL VIVEROSFacility:D0Whvlu: 03-06-2022 End: 55-02-1374Bpcmcabyf to same day surgery centerDO Bill Viveros Work Phone: [facility]-Digestive HealthStart: 03-02-2022 End: 30-44-2326Cppitqb encounter procedureDO Bill Viveros Work Phone: [facility]-Pre-Surgical Testing Start: 01-17-2022 End: 28-23-1335wqwfbijuthQL BILL VIVEROSFacility:G2Ddwbo: 12-29-2021 End: 69-43-6448umdigibyjuTH BILL VIVEROSFacility:T1Btuxg: 12-26-2021 End: 40-81-7521jsiwmyusfgYU CYRUS FAZIOFacility:F2Qhhev: 11-22-2021 End: 04-91-0958Zeoenvj encounter procedureDO Bill Viveros Work Phone: [facility]-Ultrasound Cntr for Breast CarStart: 09-30-2021 End: 97-72-4748uctuvvbbuzCB BILL VIVEROSFacility:B7Uedgj: 41-86-4773Zeuzgao of abnormal cervical Papanicolaou smearBeangie Viveros Other [employer] Other Procedures DateProcedureProcedure DetailPerforming ClinicianStart: 04-31-9530DBXJWCYIOJA SKIN LESIONNatalie A Felter FIRE ASSISTANT-HVAC R TECH Work Phone: Start: 38-82-1688Bjvigrxjicn of left breastBeangie Viveros DO Work Phone: Start: 22-46-0287Tcisxdzxadyycid of left breast Bill Viverso DO Work Phone: Start: 47-22-0908NebyittjwdccxkdkbeldnondiwLvdtvjfj Ball DO Work Phone: Start: 26-86-9850NR scan of gallbladderBeangie Viveros DO Work Phone: Start: 39-61-6187Wtdfgakbgrzsqqq of axillaBenjordyn Viveros DO Work Phone: Start: 10-24-8305[employer] X-ray absorptiometry Bill Viveros DO Work Phone: Start: 76-08-8151Mrrispekv mammography of bilateral breastsBeangie Viveros DO Work Phone: Start: 46-65-7776IVV,APTIMA HPV,AGE GDLNCorey Jacqui [employer] Work Phone: Start: 87-63-9844Drbrlcqjrre observation [Identifier] in Cervix by Cyto stainCorey Jacqui [employer] Work Phone: Start: 68-72-6646LhyuxyemsjsPajlorj Felter FIRE ASSISTANT-HVAC R TECH Work Phone: Start: 10-09-7591Xqevfbkby mammography of bilateral breastsDO Bill Viveros Work Phone: Start: 85-45-0373Zhnyqgkruuv observation [Identifier] in Cervix by Cyto stainCorey Jacqui [employer] Work Phone: Start: 21-86-9294Xmgp cerv/vag auto thin layer prep mnl screenCorey Jacqui [employer] Work Phone: Start: 05-38-8808Mqjysmavv colonoscopyDO Bill Viveros Work Phone: Start: 63-81-2077Nptomjyxeacaghz of right breastDO Bill Viveros Work Phone: Start: 34-29-0061Tynbsrd examination of patient Bill Viveros Other Start: 12-07-2010 End: 58-58-7545Lvcphnwpf of intrauterine contraceptive deviceBill Viveros Other MammographyBill Viveros Other SARS Antigen (LFIA)DO Bill Viveros Work Phone: Screening for malignant neoplasm of breastBill Viveros Other Plan of Treatment DateCare ActivityDetailAuthorStart: 37-99-0704Kwkhynhsm for malignant neoplasm of cervixNOMS HealthcareStart: 29-18-3368Kyouwkutt for malignant neoplasm of cervixPap SmearNOMS HealthcareStart: 10-12-2025 End: 84-70-4616Tfaaoxp encounter uaoqgjuur73/04/2026 8:45 AM EDT Office Visit [facility] [address] [place] [id number] Alvaro Saleh, FIRE ASSISTANT-HVAC R TECH [address] [place] [address] [facility]ermatologyStart: 06-22-2025 End: 61-07-7116Nocnauw encounter procedureNOMS BCP OBStart: 04-09-2025 End: 35-39-9472Hiqyfdwqomyyt metabolic 2000 panel - Serum or PlasmaComprehensive metabolic panel Lab Routine Androgenic alopecia High risk medication use Expected: 04/09/2025 (Approximate), Expires: 04/09/2026[facility] Work Phone: comment on above:Expected: 04/09/2025 (Approximate), Expires: 04/09/2026Start: 04-09-2025 End: 34-35-6325Yyituil encounter procedureNOMS SWS DERMComment on above:Arrived Start: 92-32-2350RSFAE-19 Vaccine ()COVID-19 Vaccine ( season)[facility] HealthcareStart: 96-18-0500Gknuifhvx vaccinationInfluenza Vaccine (#1)[facility] HealthcareStart: 93-62-1791TyrwqrxvfReg[facility] Start: 08-18-2024 End: 02-25-0420Uqrrlqe encounter ddziwmanw22/10/2025 8:10 AM EDT Office Visit [facility] [address] [place] [address] Cyrus Osman DO [address] [place] [address] [facility] BCP OBStart: 37-18-8061Stmmmdkjw complement CH50 [facility] Hospitaltart: 15-29-5682Yyoxlqyfy for malignant neoplasm of breastMammogramNOMS HealthcareStart: 06-17-2024 End: 88-06-5408PSS Skeletal system Views for bone densityDEXA bone density Imaging Routine Postmenopausal state Expected: 06/17/2024 (Approximate), Expires:06/17/2025NOTN HealthcareComment on above:Expected: 06/17/2024 (Approximate), Expires: 06/17/2025Start: 06-17-2024 End: 01-67-9587YN Breast - bilateral ScreeningBilateral screening mammogram Imaging Routine Breast cancer screening by mammogram Expected: 06/17/2024, Expires: 08/15/2025[facility]N [facility] Work Phone: comment on above:Expected: 06/17/2024, Expires: 08/15/2025Start: 06-17-2024 End: 09-30-5060Ygmibhe encounter procedureNOMS BCP OBComment on above:Arrived Start: 56-74-4216Dmgrrgp referralGrand [facility] Work Phone: Start: 64-99-2860Hzzwvgvih vaccinationInfluenza Vaccine (#1)[facility] HealthcareStart: 29-48-4867ThfmlmhspGrand Lake Joint [facility] Work Phone: Start: 33-40-6380Kolykilkp for malignant neoplasm of cervixNOMS HealthcareStart: 82-11-6245Ksvfrzmvd for malignant neoplasm of cervix Pap SmearNOMS HealthcareStart: 62-50-2663Mwbshohab B Vaccines (1 of 3 - 19+ 3- dose series)Hepatitis B Vaccines (1 of 3 - 19+ 3-dose series)[facility] Start: 68-35-2146DUrJ/Tdap/Td Vaccines (1 - Tdap)DTaP/Tdap/Td Vaccines (1 - Tdap)[facility] HealthcareStart: 13-58-3833CAH Vaccines (1 of 1 - Standard series)MMR Vaccines (1 of 1 - Standard series)[facility] HealthcareStart: 70-68-3102Fymsudunw for malignant neoplasm of colonNOTN HealthcareComplement C3 [Mass/volume] in Serum or Main Campus Medical CenterComplement C4 [Mass/volume] in Serum or Main Campus Medical CenterPatient EducationGastritis Know your [facility] Work Phone: Patient referralGrand [facility] Joint [facility] Work Phone: THIN PREP TIS PAP AND HR HPV DNATHIN PREP TIS PAP AND HR HPV DNA Pathology and Cytology Routine Well woman exam with routine gynecol ogical exam Ordered: 06/17/2024[facility]Comment [facility]:Ordered: 06/17/2024[facility] Immunizations Immunization DateImmunizationNotesCare FehbvsqvJkpprrdj89-73-0475lcapudsvi virus vaccine, unspecified formulationNatalie Delfino FIRE ASSISTANT-HVAC R TECH Work Phone: [facility] HospitalLilfgbcwyi39-91-1388JSQWM-42 Vaccine Pfizer - Documentation Purposes OnlyBill Viveros Other [facility]04-01-2021COVID-19 Vaccine Pfizer - Documentation Purposes OnlyBill Viveros Other [facility] Payers DatePayer CategoryPayerPolicy [id number]-ata [id number] Health InsuranceMEDICAL MUTUAL [id number] 2..1.011500.3.57[id number] 2..1.261829.3.57[id number] 2..1.134761.3.57[id number] 2..1.319896.3.57[id number] 2..1.720800.3.57[id number] 2..1.604978.3.57[id number] 2..1.217097.3.57[id number] [id number]-ll92-[id number] 2..1.2[id number] 2..1.152322.3.579.2.531 [id number] 2..1.2[id number] 2.0.1.9[id number] 2.0.1.780996.3.579.2.531 [id number] 2.0.1.521143.3.579.2.531 Social History DateTypeDetailFacilityTobacco smoking status NHISUnknown if ever smokedGrand Lake Joint [facility] District [facility] Ctr Work Phone: Start: 12-68-4613Qdu Assigned At [facility]htart: 03-06-2022 End: 49-72-3581Tibxneg smoking status NHISNever smoked tobacco (finding) [facility] Hospitaltart: 80-44-7610Gtb Assigned At [facility] [employer] Other Start: 04-08-2024 End: 56-93-5954Itiftuxsk beverage intakeCurrent drinker of alcohol (finding)[facility] HealthcareStart: 89-27-3359Xqrwudn of Social functionGUNNISON VALLEY HOSPITAL HealthcareStart: 36-86-5681Mnyaatw Comment1 or 2 drinks on a typical day/monthly or lessNOMS HealthcareStart: 19-82-3162Hns assigned at [facility] hospitalNot on fileGUN[facility]LEY [facility] HealthcareStart: 07-31-2024 End: 14-92-8045VetPmkmse (finding)[facility] Hospitaltart: 08-69-1236BwqItlzyaPSYW Healthcare Goals DatePatient GoalDesired Activity/State Clinical Notes 03-06-2022 to 04-09-2025 Note Date & MvnaAyfeOnegurbx05-07-3625 History of Present illness Narrative* Alvaro See Saleh, FIRE ASSISTANT-HVAC R TECH - 04/09/2025 1:00 PM EDT Skin Check Location: Patient requests a full body skin examination Dermatologic history: no history of skin cancer, no history of atypical moles, family history of melanoma-Dad -passed from MM and Mom had MM Last visit: 1 year ago Established patient Follow up Diagnosis: Androgenic alopecia Location: scalp Last visit: 1 year ago Symptoms: thinning Status: some improvement Treatments tried and failed: Biotin, Rogaine, Ketoconazole shampoo Current treatment: Patient is using Nutrafol All pertinent medical history, medications, and allergies were reviewed. General Exam: alert, oriented to person, place, and time, normal affect, well appearing Unaccompanied Scalp, Examined , exam limited by hair Right leg Examined Head, Face Examined Left leg Examined Neck Examined Right foot Examined Chest Examined Left foot Examined Back Examined Buttocks Examined Patient kept underwear on Abdomen Examined Digits,nails: Examined Right arm Examined Patient wearing nail montserratian, Denies dark streaks under finger nails, Denies darkstreaks on toenails Left arm Examined Lymphatics: Not examined Hands Examined Skin Exam 1. ANDROGENIC ALOPECIA Scalp Frontal scalp thinning with intact frontal hairline and miniaturization Patient was counseled that this condition is chronic and can be controlled, but not cured. Discussed treatment options including topical minoxidil, oral prescriptions, or supplements. Recommend patient continue topical minoxidil daily at bedtime along with Nutrafol. Discussed spironolactone as a treatment option. Patient denies history of low blood pressure, or kidney problems. Caution with firstdose - monitor for dizziness/lightheadedness, caution driving after first dose. Encouraged patient to stay hydrated while on this medication and avoid potassium supplements. Notify office if side effects develop. Follow up in 6 months - Comprehensive metabolic panel - Scalp - spironolactone (Aldactone) 50 MG tablet - Scalp - Take 1 tablet, by mouth, once daily, 30 days 2. HIGH RISK MEDICATION USE This Visit - Comprehensive metabolic panel 3. SEBORRHEIC KERATOSIS Generalized Stuck on verrucous, variably pigmented papules and plaques. Patient was counseled regarding these benign growths. Removal is normally not necessary, but they may be removed if they are symptomatic or for cosmetic reasons. 4. MELANOCYTIC NEVUS OF TRUNK Generalized Scattered benign appearing, regular brown to light brown melanocytic papules and macules with similar morphology Counseled regarding these benign growths. Rarely, a nevus can develop into malignant melanoma, so any changing nevi should be promptly re-evaluated. 5. LENTIGINES Generalized Scattered goodrich macules in sun-exposed areas. The patient was informed that lentigines are benign pigmented lesions that occur on sun-exposed andsun-damaged skin. No treatment is necessary. Recommended regular use of broad spectrum sunscreen SPF 30 or higher 6. SEBORRHEIC KERATOSIS, INFLAMED (4) Left Forearm - Posterior, Right Dorsal Hand, Right Forearm - Anterior, Right Forearm - Posterior [place] and brown stuck on verrucous scaly papule with surrounding erythema The patient was informed that symptomatic seborrheic keratoses are benign growths that become inflamed, itchy, tender, traumatized, caught on clothing, or bleed. Symptomatic lesions can be treated with cryotherapy or curretage. Thicker lesions treated with cryotherapy may require more than one treatment. The patient was instructed to notify the office if abnormal redness or tenderness develops atthe treatment site. Cryotherapy today, see procedure note. Diagnosis: Inflamed seborrheic keratosis Indication: Inflamed Consent: Verbal consent was obtained and risks were discussed, including, but not limited to risks of scarring, darker or web applications developer pigmentary changes, recurrence, incomplete removal and infection. Method: Liquid nitrogen was used to treat the lesion(s) with two 5-10 second freeze-thaw cycles Number of lesions treated: 4 Post-procedure instructions: Instructions were given orally and in writing. The office will be contacted if the lesion fails to resolve despite treatment, or if a side effect develops such as abnormal crusting, scabbing, redness or tenderness - Cryotherapy, skin lesion - Left Forearm - Posterior, Right Dorsal Hand, Right Forearm - Anterior,Right Forearm - Posterior Next Visit: 6 months androgenic alopecia documented in this encounterSac-Osage [id number] Evaluation note* Diagnosis Onset Date Resolution Status Admit Date Travelers' diarrhea acuteJuly 2024 2:32pmAbdominal crampingnoneactiveJuly 2024 2:[facility] Work Phone: 1(156) 730-757305-29-2025 [place] [address] Gastroenterology H&P Signed Patient: Leigh Vallecillo MR#: [id number] : 1970 Acct:[id number] Age/Sex: 54 / F Adm Date: 5 Loc: Room: Type: [facility] Attending Dr: Nicolasa Molina DO Copies to: DO Nicolasa Hercules DO~ Date of Service: 11/06/2024 HISTORY & PHYSICAL: Patient's history with special attention to the cardiovascular, pulmonary systems and the current problem was reviewed with the patient immediately prior to the procedure. Present medications and doses reviewed in the EMR. Allergies and pertinent laboratory tests were also re viewedat this time in the EMR. The physical examination, as below, was then performed. Indication, assessment and HPI: 54-year-old female who presents for EGD for GERD, epigastric pain, bloating and belching. No prior EGD. Family history of GI malignancy? No PHYSICAL EXAMINATION General appearance: cooperative, NAD Skin: No jaundice, no rash or lesions Head: NCAT Eyes: Anicteric Neck: Supple Lungs: Normal respiratory effort, no use of accessory muscles Abdomen: Soft, nondistended Neuro: No focal deficits, Ox3. REVIEW OF SYSTEMS Constitutional: Denies malaise, fevers Cardiovascular: Denies chest pain, palpitations Respiratory: Denies shortness of breath, wheezing Gastrointestinal: As per HPI Genitourinary: Denies dysuria, polyuria Musculoskeletal: Denies joint swelling, joint stiffness Neurological: Denies confusion, numbness, tingling Endocrine: Denies fatigue Written informed consent obtained from the patient. Risks (including but not limited to perforation, infection, bloating, bleeding, need for emergent surgeryand loss of life), benefits and alternatives explained and questions answered. The patient verbalized understanding. Based on history patient is an appropriate candidate for the procedure. Nicolasa Molina DO Present medication and doses reviewed in the EMR Documented By: Nicolasa Molina DO 11/06/24921 Signed By: 11/06/24921 [facility]05-29-2025 [place] [address] EGD Procedure Note Signed Patient: Leigh Vallecillo MR#: [id number] : 1970 Acct:[id number] Age/Sex: 54 / F Adm Date: 5 Loc: Room: Type: [facility] Attending Dr: Nicolasa Molina DO Copies to: DO Nicolasa Hercules DO~ Esophagogastroduodenoscopy Date/Provider Date: 11/06/2024 Nicolasa Molina DO Narrative Narrative: Procedure: EGD with biopsy Indication: GERD, epigastric pain, bloating and belching. Pre-operative diagnosis: GERD, epigastric pain, bloating and belching Post-operative diagnosis: Tiny hiatal hernia, Mild gastritis, otherwise normal EGD s/p small bowel and gastric biopsies obtained. Sedation: propofol per anesthesia dept O2 oximetry, hemodynamic monitoring was performed pre, during, and post procedure. Patient was identified, H&P completed, patient was given full explanation of the procedure as well as associatedrisks and written consent wasobtained prior to procedure. Patient expressed complete understanding of the procedure as well as alternatives to the procedure and to anesthesia and agreed to proceed with the procedure as indicated. Patient was immediately reassessed prior to IV sedation. Following IV sedation, patient was placed in the left lateral decubitus position. Bite block was inserted. Endoscope was passed through the mouth, into the esophagus. Endoscope was advanced into the stomach through the pyloricchannel and into the 2nd portion of duodenum by direct visualization. Endoscopewas withdrawn into the stomach and retroflexion was performed. The endoscope was straightened,the stomach was decompressed. Endoscope was withdrawn into the esophagus then completely removed with the findings as below. Findings: DUODENUM: The bulb and descending portion appeared normal. Biopsies were obtained from the small bowel for histology and to rule out Celiac disease. STOMACH: Retroflexed views revealed a very tiny hiatal hernia. There is mild erythema and edema in the gastric body. The stomach was otherwise normal. Biopsies were obtained from the gastric antrum and body for histology and to rule out H. Pylori. ESOPHAGUS:GE junction (upper margin of gastric folds) was at 35 cm from incisors. Mucosa appeared normal. Biopsy taken: Yes Complications: None EBL: Minimal Recommendations: -Follow up pathology -Resume normal diet -Lifestyle modifications for GERD -Follow up in the office if symptoms persist -Follow up with PCP Following a period of recovery, patient was seen and given full explanation of the procedure. Patient tolerated the procedure well and will be discharged in satisfactory, stable condition. Nicolasa Molina DO Documented By: Nicolasa Molina DO 11/06/24 0922 Signed By: 11/06/24 0932 [facility]04-18-2025 Radiology Diagnostic study note [facility] Main [place] [address] [place] [address] Ultrasound Report Signed Patient: Leigh Vallecillo MR#: [id number] : 1970 Acct:[id number] Age/Sex: 54 / F ADM Date: 5 Loc: [facility] Room: Type: [facility] CLI Attending Dr: Bill Viveros DO Ordering Provider: Bill Viveros DO Date of Service: 09/26/24 US/US gall bladder: R10.11 - Right upper quadrant pain Copies to: Bill Viveros DO~ LIMITED ABDOMINAL ULTRASOUND: CLINICAL HISTORY: Epigastric pain COMPARISON: None TECHNIQUE: Grayscale and color Doppler images of the right upper quadrant organswere obtained. FINDINGS: Pancreas: Visualized portions appear unremarkable. Liver: Unremarkable. Gallbladder: Unremarkable. CBD: 3.2 mm RT KIDNEY: No Hydronephrosis US/US gall bladder IMPRESSION: NO ACUTE PROCESS. . Impression dictated by: Jamil Tong Jr., D.O.09/26/2024 2:01 PM Dictation Location: [place] [address] Tech: Amber Serna Transcribed By: TY 09/26/24 1401 Dictated By: Jamil Tong Jr, DO 09/26/24 1401 Signed By: 09/26/24 1401 [facility]04-18-2025 Radiology Diagnostic study note [facility] Main [place] [address] [place] [address] Ultrasound Report Signed Patient: Leigh Vallecillo MR#: [id number] : 1970 Acct:[id number] Age/Sex: 54 / F ADM Date: 5 Loc: [facility] Room: Type: [facility] Attending Dr: Bill Viveros DO Ordering Provider: Bill Viveros DO Date of Service: 09/26/24 US/US axilla: R22.31 - Localized swelling, mass and lump, right upper limb Copies to: Bill Viveros DO~ 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 Benign-appearing lymph nodes are present. US/US axilla IMPRESSION: NO ULTRASOUND EVIDENCE OF MALIGNANCY. Impression dictated by: Jamil Tong Jr. D.O.09/26/2024 8:14 AM Dictation Location: [facility] Tech: Isabel Caban Transcribed By: TY 09/26/24 0814 Dictated By: Jamil Tong Jr, DO 09/26/24 0810 Signed By: 09/26/24 0814 [facility]04-02-2025 Evaluation note* Diagnosis Onset Date Resolution Status Admit Date Abdominal pain acuteApril 2024 2:53pmElevated C-reactive protein (CRP)acuteApril 2024 2:53pmGERD (gastroesophageal reflux disease)acuteApril 2024 2:53pmMass of right axillaacuteApril 2024 2:53pm [facility] Work Phone: 1([phone]) [phone] History of Present illness Narrative* Apurva Jade NP - 08/25/2024 8:00 AM EDT Reason for Appointment: Patient ID: Leigh Vallecillo is a 54 y.o. female who presents for evaluation to follow up on Prempro prescription. Patient presents today via telephone call for a telehealth appointment. Patients Phone #: [phone] (mobile) Current Medications: has a current medication list which includes the following prescription(s): epinephrine, estrogen (conjugated)-medroxyprogesterone, and ketoconazole. Medical History: Active Ambulatory Problems Diagnosis Date Noted No Active Ambulatory Problems Resolved Ambulatory Problems Diagnosis Date Noted No Resolved Ambulatory Problems No Additional Past Medical History Family History Problem Relation Name Age of Onset Cancer Mother Cancer Father Melanoma Other Social History Tobacco Use Smoking status: Never Smokeless tobacco: Not on file Vaping Use Vaping status: Never Used Substance Use Topics Alcohol use: Yes Comment: 1 or 2 drinks on a typical day/monthly or less Drug use: Not on file Past Surgical History: Procedure Laterality Date OTHER SURGICAL HISTORY 2010 ablation [place] TONSILLECTOMY & ADENOIDECTOMY <AGE 13 1975 Allergies Allergen Reactions Penicillins Hives Other Reaction(s): Unknown Other Reaction(s): Not available Vitals: Estimated body mass index is 26.95 kg/m as calculated from the following: Height as of 04/25/22: 5' 3 . Weight as of 06/17/24: 152 lb 1.9 oz. BP: No LMP recorded. Patient has had an ablation. Assessment/Plan Reviewed recent prescription of Prempro with patient. She reports no complaints of side effects andfeels that the Prempro is helping with her perimenopausal complaints. She has begun using Nutrafol for hair loss and coconut oil for vaginal dryness complaints. She will consider testosterone in the future if she does not feel that the Prempro addresses all of her complaints in the future. Today's telehealth visit consisted of spending 20 minutes talking to patient on the phone. Documented by Apurva Jade NP on behalf of: Cyrus Osman DO documented in this encounterSac-Osage [id number] History of Present illness Narrative* Matilda Lyons, ROLL ICER - 06/17/2024 9:30 AM EST Reason for Appointment: Patient ID: Leigh Vallecillo is a 53 y.o. female who presents for [facility] Visit Patient presents today for Annual Exam. MEDICATIONS Current Outpatient Medications Medication Instructions EPINEPHrine (Epipen) 0.3 MG/0.3ML injection syringe USE DIRECTED FOR ALLERGIC REACTION ketoconazole (NIZOral) 2 % shampoo Lather on scalp 2-3 times weekly, leave on 5- 10 min before rinsing ALLERGIES Allergies Allergen Reactions Penicillins Hives Other Reaction(s): Unknown Other Reaction(s): Not available PROBLEMS Active Ambulatory Problems Diagnosis Date Noted No Active Ambulatory Problems Resolved Ambulatory Problems Diagnosis Date Noted No Resolved Ambulatory Problems No Additional Past Medical History HISTORY PAST MEDICAL HISTORY SOCIAL HISTORY History reviewed. No pertinent past medical history. Social History Tobacco Use Smoking status: Never Smokeless tobacco: Not on file Vaping Use Vaping status: Never Used Substance Use Topics Alcohol use: Yes Comment: 1 or 2 drinks on a typical day/monthly or less Drug use: Not on file FAMILY HISTORY Family History Problem Relation Name Age of Onset Cancer Mother Cancer Father Melanoma Other SURGICAL HISTORY Past Surgical History: Procedure Laterality Date OTHER SURGICAL HISTORY 2010 ablation [place] TONSILLECTOMY & ADENOIDECTOMY <AGE 13 1976 REVIEW OF SYSTEMS Review of Systems: Review of Systems Constitutional: Negative. HENT: Negative. Eyes: Negative. Respiratory: Negative. Cardiovascular: Negative. Gastrointestinal: Negative. Genitourinary: Negative. Musculoskeletal: Negative. Skin: Negative. Neurological: Negative. All other systems reviewed and are negative. Hematological: Negative. Endocrine: Negative. Allergic/Immunologic: Negative. OBJECTIVE Objective: Physical Exam Constitutional: Appearance: Normal appearance. She is well-developed. Genitourinary: Vulva normal. Cardiovascular: Rate and Rhythm: Normal rate and regular rhythm. Pulmonary: Effort: Pulmonary effort is normal. Breath sounds: Normal breath sounds. Abdominal: General: Bowel sounds are normal. There is no distension. Palpations: Abdomen is soft. Tenderness: There is no abdominal tenderness. There is no guarding or rebound. Musculoskeletal: General: No swelling. Normal range of motion. Right lower leg: No edema. Left lower leg: No edema. Neurological: Mental Status: She is alert and oriented to person, place, and time. Skin: General: Skin is warm and dry. Psychiatric: Mood and Affect: Mood normal. Behavior: Behavior normal. Vitals and nursing note reviewed. Exam conducted with a player services representative present. Vitals: Estimated body mass index is 26.95 kg/m as calculated from the following: Height as of 22: 5' 3 . Weight as of this encounter: 152 lb 1.9 oz. BP: 120/78 No LMP recorded. Patient has had an ablation. ASSESSMENT & PLAN ICD-10-CM 1. Well woman exam with routine gynecological exam Z01.419 THIN PREP TIS PAP AND HR HPV DNA 2. Breast cancer screening by mammogram Z12.31 Bilateral screening mammogram Bilateral screening mammogram 3. Postmenopausal state Z78.0 DEXA bone density Annual: Patient presents today for an annual exam. Patient states she is doing well and has complaints of hair thinning, menopause symptoms- hotflashes, dryness and weight gain. Pt advised to take nutrafol. Discussed adding hormones. [facility] prem[facility] Pap was obtained without difficulty andpatient given mammogram order to have scheduled/obtained. Orders Placed This Encounter Procedures Bilateral screening mammogram DEXA bone density Follow Up: Patient is to return in one year for annual unless needed otherwise. Documented by Matilda Lyons LPN on behalf of: Cyrus Osman DO documented in this encounterSac-Osage [id number] Evaluation note* Diagnosis Onset Date Resolution Status Admit Date Acute sinusitis acuteDecember 2023 2:52pmPositive TRISTIAN (antinuclear antibody)acuteDecember 2023 2:52pmScreening mammogram for breast canceracuteDecearizona [facility] 2023 2:52pmWellness examinationacuteDeaurora [facility] hospital 2023 2:52pm [facility] Work Phone: 1(160) 984-113810-29-2024 History of Present illness Narrative* Alvaro Saleh, FIRE ASSISTANT-HVAC R TECH - 04/08/2024 1:05 PM EDT Skin Check Location: Patient requests a full [...] Examined Right arm Examined Patient wearing nail montserratian, Denies dark streaks under finger nails, Denies darkstreaks on toenails Left arm Examined Lymphatics: Not [...] benign pigmented lesions that occur on sun-exposed andsun-damaged skin. No treatment is necessary. Recommended regular [...] 1 year skin check documented in this [facility]10-02-2023 Evaluation note* Encounter Date Diagnosis Assessment Notes Treatment Notes Treatment Clinical Notes Mar, Acute recurrent maxillary sinusi tis (ICD-10 - J01.01) Instructed to use Robitussin or Mucinex for cough, saline or Flonase NS for congestion, Tylenol forpain and fever. Mar,Seasonal allergic rhinitis due to pollen (ICD-10 - J30.1)Continue treatment until acosta [facility] Other 08-16-2023 Evaluation note* Encounter Date Diagnosis Assessment Notes Treatment Notes Treatment Clinical Notes Jan, Acute non-recurrent maxillary si nusitis (ICD-10 - J01.00) Instructed to use Robitussin or Mucinex for cough, saline or Flonase NS for congestion, Tylenol forpain and fever. [facility] Other 02-20-2023 Evaluation note* Encounter Date Diagnosis Assessment Notes Treatment Notes Treatment Clinical Notes Jul, Acute non-recurrent maxillary si nusitis (ICD-10 - J01.00) Jul,naphylaxis, sequela (ICD-10 - T78.2XXS) [facility] Other 02-09-2023 Evaluation note* Encounter Date Diagnosis Assessment Notes Treatment Notes Treatment Clinical Notes Jul, Acute non-recurrent maxillary si nusitis (ICD-10 - J01.00) [facility] Other 02-06-2023 Evaluation note* Encounter Date Diagnosis Assessment Notes Treatment Notes Treatment Clinical Notes Jul, Acute non-recurrent maxillary si nusitis (ICD-10 - J01.00) Instructed to use Robitussin or Mucinex for cough, saline or Flonase NS for congestion, Tylenol forpain and fever. [facility] Other 01-04-2023 Evaluation note* Encounter Date Diagnosis Assessment Notes Treatment Notes Treatment Clinical Notes Jun, Acute non-recurrent maxillary si nusitis (ICD-10 - J01.00) Instructed to use Robitussin or Mucinex for cough, saline or Flonase NS for congestion, Tylenol forpain and fever. [facility] Other 09-26-2022 [facility] noteReg[facility]edoEvaluation noteNo assessment information [facility] Work Phone: Evaluation noteNo InformationNort [employer] Other Evaluation note* Diagnosis Onset Date Resolution Status Allergic rhinitis acuteAcute sinusitisnoneactive [facility] Work Phone: Evaluation note* Diagnosis Melanocytic nevus of trunk Benign neoplasm of skin of trunk, except scrotum Seborrheic keratosis Lentigines Capillary angioma Nevus, non-neoplastic Androgenic alopecia Other alopecia documented in this encounter [facility] HealthcareEvaluation note* Diagnosis Well woman exam with routine gynecological exam Routine gynecological examination Breast cancer screening by mammogram Postmenopausal state Asymptomatic postmenopausal status (age-related) (natural) documented in this encounter [facility]* Diagnosis Follow-up encounter involving medication- Primary documented in this encounter [facility] note* Diagnosis Androgenic alopecia Other alopecia High risk medication use Seborrheic keratosis Melanocytic nevus of trunk Benign neoplasm of skin of trunk, except scrotum Lentigines Seborrheic keratosis, inflamed documented in this encounter [facility] HealthcareHistory and physical note Author Barry Machado [facility] March 06, 2022 8:44amNote Date/TimeSeptember 2021 8:44[place] [address] Gastroenterology H&P Signed Patient: Leigh Vallecillo MR#: [id number] : 1970 Acct:[id number] Age/Sex: 51 / F Adm Date: 2 Loc: Room: Type: [facility] Attending Dr: Barry Machado MD Copies to: DO Barry Hercules MD~ Date of Service: 03/06/2022 HISTORY & PHYSICAL: Patient's history with special attention to the cardiovascular, pulmonary systems and the current problem was reviewed with the patient immediately prior to the procedure. Present medications and doses reviewed in the EMR. Allergies and pertinent laboratory tests were also re viewedat this time in the EMR. The physical [...] <Electronically signed by Barry Machado MD> 03/06/22843 [facility] Work Phone: History and physical note Author Nicolasa Molina [facility] ToledoNote Date/TimeMay 2024 10:10am[place] [address] Gastroenterology H&P Signed Patient: Leigh Vallecillo MR#: [id number] : 1970 Acct:[id number] Age/Sex: 54 / F Adm Date: 5 Loc: Room: Type: [facility] Attending Dr: Nicolasa Molina DO Copies to: Bill Viveros,DO Nicolasa Molina, DO~ Date of Service: 11/06/2024 HISTORY & PHYSICAL: Patient's history with special attention to the cardiovascular, pulmonary systems and the current problem was reviewed with the patient immediately prior to the procedure. Present medications and doses reviewed in the EMR. Allergies and pertinent laboratory tests were also re viewedat this time in the EMR. The physical examination, as below, was then performed. Indication, assessment and HPI: 54-year-old female who presents for EGD for GERD, epigastric pain, bloating and belching. No prior EGD. Family history of GI malignancy? No PHYSICAL EXAMINATION General appearance: cooperative, NAD Skin: No jaundice, no rash or lesions Head: NCAT Eyes: Anicteric Neck: Supple Lungs: Normal respiratory effort, no use of accessory muscles Abdomen: Soft, nondistended Neuro: No focal deficits, Ox3. REVIEW OF SYSTEMS Constitutional: Denies malaise, fevers Cardiovascular: Denies chest pain, palpitations Respiratory: Denies shortness of breath, wheezing Gastrointestinal: As per HPI Genitourinary: Denies dysuria, polyuria Musculoskeletal: Denies joint swelling, joint stiffness Neurological: Denies confusion, numbness, tingling Endocrine: Denies fatigue Written informed consent obtained from the patient. Risks (including but not limited to perforation, infection, bloating, bleeding, need for emergent surgeryand loss of life), benefits and alternatives explained and questions answered. The patient verbalized understanding. Based on history patient is an appropriate candidate for the procedure. Nicolasa Molina DO Present medication and doses reviewed in the EMR Documented By: Nicolasa Molina DO 11/06/24921 Signed By: <Electronically signed by Nicolasa Molina DO> 11/06/24921 [facility] Work Phone: History general Narrative - Reported* Type Description Date Surgical History [facility] [employer] [facility] Discharge instructions Additional Instructions DISCHARGE INSTRUCTIONS FOR UPPER ENDOSCOPY WHAT TO EXPECT: - You may feel full, gassy or cramping after your procedure. In some cases, this may be from a few hours to a day. Walking may help relieve the discomfort. - Your throat may feel sore today from the scope that the doctor passed through your throat to visualize your stomach. Take a throat lozenge or suck on ice to ease the discomfort. - You may notice some streaks of blood in your sputum if the doctor has taken a biopsy. - You should begin to recover from anesthesia within 1 hour of the procedure, however may feel groggy for the next 24 hours. DO's AND DON'Ts: - Call your doctor right away if you have a hard abdomen, severe pain, vomiting or if you cough up large amounts of blood. - Call your doctor if you develop any rashes, hives or difficulty breathing. - If you take 81 mg aspirin for your heart it is safe to resume this medication. - If you take other blood thinner medications your doctor will instruct you when these can safely be resumed. - Do NOT drive for 24 hours. - Do NOT operate machinery such as power tools, lawn mowers, snow blowers, sewing machines, etc. for 24 hours. - Avoid alcoholic beverages and drugs for allergies, nerves, or sleep. - Do NOT stay alone. Do NOT leave your child unattended. - Do NOT make important personal or business decisions or sign any legal documents. - Eat solid foods and drink liquids in smaller amounts than usual until normal appetite returns. If you should experience an upset stomach, liquids high in sugar content (soda, Russ-Aid, non-acid juices) are recommended. - Do NOT smoke. - Do take it easy today. You need not stay in bed, but avoid strenuous activities such as jogging or working out. FOLLOW UP & RECOMMENDATIONS: -Please call the office and make a follow up appointment to see me if symptoms persist. -Notify the doctor if you have any problems. -Follow up with PCP. -Office number [phone]. [facility] Work Phone: Reason for referral (narrative)No reason for referral information availableGrand Lake Joint Township [facility] Work Phone: Summary Purpose Family History No Family History Records Found Relationship Condition Age at Onset Recorded Date/T honorio father Malignant melanoma Unknown Not SpecifiedMalignant melanomaUnknown Relationship Condition Age at Onset Recorded Date/T honorio father Malignant melanoma Unknown Not SpecifiedMalignant melanomaUnknownfatherDeceasedUnknown Relationship Condition Age at Onset Recorded Date/T honorio father Malignant melanoma Unknown motherMalignant melanomaUnknownfatherDeceasedUnknown Relationship Condition Age at Onset Recorded Date/T honorio father Malignant melanoma Unknown DeceasedUnknownmotherMalignant melanomaUnknown Advance Directives No Advanced Directives Records Found Advance Directive Response Recorded Date/ Time Advance Directives No June 26, 2017 3:48pm Advance Directive Response Recorded Date/ Time Advance Directives No June 26, 2017 2:48pm Chief Complaint and Reason for Visit Chief Complaint Abnormal Mammogram Chief Complaint Screening Screening Chief Complaint [id number] screen Chief Complaint [id number] screen sinus infectionReason for VisitAllergic rhinitis Acute sinusitis Chief Complaint Admit Date wellness May 19, 2024 2 :52pm Reason for Visit Admit Date Acute sinusitis May 19, 2024 2 :52pm Positive TRISTIAN (antinuclear antibody) Dece mber 2023 2:52pm Screening mammogram for breast cancer De cember 2023 2:52pm Wellness examination May 19, 2024 2:52pm Chief Complaint Admit Date Fatigue R76.0 [facility] July 30, 2024 10:40am Z78.0 Z12.31 August 20, 2024 12: 21pm Chief Complaint Admit Date Fatigue R76.0 [facility] July 30, 2024 10:40am Z78.0 Z12.31 August 20, 2024 12: 21pm stomach bloating September 10, 2024 2:53 pm Chief Complaint Admit Date Fatigue R76.0 [facility] July 30, 2024 10:40am Z78.0 Z12.31 August 20, 2024 12: 21pm stomach bloating September 10, 2024 2:53 pm R22.31 September 26, 2024 7:3 3am Reason for Visit Admit Date Abdominal pain September 10, 2024 2:53 pm Elevated C-reactive protein (CRP) September 10, 2024 2:53pm GERD (gastroesophageal reflux disease) A pril 2024 2:53pm Mass of right axilla September 10, 2024 2:5 3pm Chief Complaint Admit Date Z78.0 Z12.August 20, 2024 12: 21pm stomach bloating September 10, 2024 2:53 pm R22.31 September 26, 2024 7:3 3am GERD November 06, 2024 7:53a m Gastroesophageal reflux disease (GERD) [facility] 2024 9:22am Chief Complaint Admit Date stomach bloating September 10, 2024 2:53 pm R22.31 September 26, 2024 7:3 3am GERD November 06, 2024 7:53a m Gastroesophageal reflux disease (GERD) [facility] 2024 9:22am N63.December 04, 2024 9:27 am Chief Complaint Admit Date GERD November 06, 2024 7:53a m Gastroesophageal reflux disease (GERD) [facility] 2024 9:22am N63.December 04, 2024 9:27 am Upset Stomach/Diarrhea December 30, 2024 2 :32pm Reason for Visit Admit Date Travelers' diarrhea December 30, 2024 2:32 pm Abdominal cramping December 30, 2024 2:32 pm Additional Source Comments INFORMATION SOURCE (unrecogn ized section and content) DATE CREATED AUTHOR 12/29/2019 [facility] DATE CREATED AUTHOR AUTHOR'S ORGANIZ ATION 02/18/2022 [facility] DATE CREATED AUTHOR AUTHOR'S ORGANIZ ATION 04/06/2022 [facility] DATE CREATED AUTHOR AUTHOR'S ORGANIZ ATION 02/13/2025 [facility] DATE CREATED AUTHOR AUTHOR'S ORGANIZ ATION 04/11/2025 [facility] EPIC Care Teams (unrecognized sec tion and content) Team Status: Active Member Role Status Dates Bill Viveros DO Primary Care Provider Active Team Status: Inactive Member Role Status Dates Bill Viveros DO Primary Care Provider Active Start: July 30, 2024 End: July 30, 2024Robert Joanna , MDAttending ProviderActiveStart: July 30, 2024 End: July 30, 2024 Team Status: Inactive Member Role Status Dates Bill Viveros DO Primary Care Provider Active Start: August 20, 2024 End: August 20orealbert Osman , DOAttending ProviderActiveStart: August 20, 2024 End: August 20, 2024 Team Status: Inactive Member Role Status Dates Bill Viveros DO Primary Care Provide r, Attending Provider Active Start: September 10, 2024 End: September 10, 2024 Team Status: Inactive Member Role Status Dates Bill Viveros DO Primary Care Provide r, Attending Provider Active Start: September 26, 2024 End: September 26, 2024 Team Status: Active Member Role Status Mariangel Viveros DO Primary Care Provide r, Attending Provider Active Start: May 02, 2024 Team Status: Inactive Member Role Status Dates Bill Viveros DO Primary Care Provide r, Attending Provider Active Start: May 19, 2024 End: May 19, 2024 Team Status: Active Member Role Status Dates Bill Viveros DO Primary Care Provider Active Start: June 17, 2024 Cyrusalbert Osman , DOAttending ProviderActiveStart: June 17, 2024 Team Status: Inactive Member Role Status Dates Bill Viveros DO Primary Care Provider Active Cyrus Rizvi ProviderActive Team Status: Inactive Member Role Status Dates Bill Viveros DO Primary Care Provider Active Mariusz Parker ProviderActive Team Status: Inactive Member Role Status Dates Bill Viveros DO Primary Care Provider Active Start: July 10, 2023 End: July 10eferral SelfAttending ProviderActiveStart: July 10, 2023 End: July 10, 2023 Team Status: Inactive Member Role Status Dates Bill Viveros DO Primary Care Provide r, Attending Provider Active Start: October 05, 2023 End: October 05, 2023Team MemberRelationshipSpecialtyStart DateEnd Date [facility]o [facility] [address] [place] [address] PCP - [facility] [employer]09/10/1511Team MemberRelationshipSpecialty Start DateEnd Date [facility] [address] [place] [address] PCP - [facility] [employer]09/10/1511Team MemberRelationshipSpecialty Start DateEnd Date [facility] [address] [place] [address] PCP - [facility] [employer]09/10/1511Team MemberRelationshipSpecialty Start DateEnd Date Alvaro Saleh [facility] [address] [place] [address] PCP - [facility] Commercial09/10/1511Team MemberRelationshipSpecialty Start DateEnd Date [facility] [address] [place] [address] PCP - [facility] Commercial09/10/1511 Team Status: Inactive Member Role Status Dates Bill Viveros DO Primary Care Provider Active Start: November 06, 2024 End: November 06fatemeh Molina , DOAttending ProviderActiveStart: November 06, 2024 End: November 06, 2024 Team Status: Active Member Role Status Dates Bill Viveros DO Primary Care Provider Active Start: November 06, 2024 Nicolasa Molina , DOAttending Provider, Other ProviderActiveStart: November 06, 2024 Team Status: Inactive Member Role Status Dates Bill Viveros DO Primary Care Provider Active Start: September 10, 2024 End: September 10enjordyn Viveros , DOAttending ProviderActiveStart: September 10, 2024 End: September 10, 2024 Team Status: Inactive Member Role Status Dates Bill DO Felice Primary Care Provider Active Start: September 26, 2024 End: September 26enjordyn Viveros , DOAttending ProviderActiveStart: September 26, 2024 End: September 26, 2024 Team Status: Active Member Role Status Dates Bill Viveros DO Primary Care Provider Active Start: November 06, 2024 Nicolasa L Ly , DOAttending ProviderActiveStart: November 06, 2024 Nicolasa L Ly , DOOther ProviderActiveStart: November 06, 2024 Team Status: Inactive Member Role Status Dates Bill Viveros DO Primary Care Provider Active Start: December 04, 2024 End: December 04erika Jacqui , DOAttending ProviderActiveStart: December 04, 2024 End: December 04, 2024 Team Status: Inactive Member Role Status Dates Bill Viveros DO Primary Care Provider Active Start: December 30, 2024 End: December 30enjordyn Vievros DOAttending ProviderActiveStart: December 30, 2024 End: December 30, 2024 Team Status: Inactive Member Role Status Dates Murray Vilchis MD Attending Provider Active Start: January 28, 2025 End: January 28, 2025 Goals (unrecognized section and content) Goals may be documented in a n alternate sectionNo InformationNo InformationNo InformationNo InformationNo InformationNo InformationNo InformationGoals may be documented in an alternate sectionNo InformationGoals may be documented in an alternate sectionGoals may be documented in an alternate sectionGoals may be documented in an alternate sectionGoals may be documented in an alternate sectionGoals may be documented in an alternate section REASON FOR VISIT (unrecogniz ed section and content) ReasonCommentsSkin CheckReasonCommentsWell Women Visit FOR RECORDS PERTAINING TO PATIENTS WHO ARE [...] BE BASED ON THE PRIMARY CLINICAL RECORDS. [facility] [employer] [facility]. provides no warranty or guarantee of the accuracy or completeness of information in this document.
== END 2025-04-25 11:22 | disposition home or self-care (01) ==
LOC: LAB 11:23
PROVIDERS: PCP Internal Medicine; Visit Provider Obstetrics & Gynecology
DX: E34.9 Endocrine disorder, unspecified (principal); E28.2 Polycystic ovarian syndrome
CPT/HCPCS: 36415; 82626; 82627; 82670; 84144; 84402; 84403